=== PATIENT | female | born 1995 | race Caucasian/White ===

== ENCOUNTER 2023-03-09 09:12 | Emergency (ER) | payer MEDICAID, SELFPAY ==
[2023-03-09 09:12] VITALS: BP 124/91; PULSE 103; RESP 16; TEMP 36.4; O2SAT 99
--- NOTE | 2023-03-09 09:36 | CT_ITS ---
STUDY: CT ABDOMEN AND PELVIS WITHOUT CONTRAST REASON FOR EXAM: Female, 27 years old. pain, LLQ RADIATION DOSAGE (If Supplied By Facility): CTDIvol = ( 6.04 ) mGy, DLP = ( 246.11 ) mGycm TECHNIQUE: Transaxial images were obtained from the dome of the diaphragm to the symphysis pubis without oral contrast, and without intravenous contrast. Sagittal and coronal images were reconstructed. Individualized dose optimization techniques were used for this CT. COMPARISON: None. FINDINGS: The visualized lung bases are unremarkable. The visualized portions of the heart are within normal limits. Liver is unremarkable, there is incidental note made of a large left lobe which extends over the anterior spleen. Normal gallbladder and extrahepatic biliary system. Normal spleen. Normal pancreas. Normal bilateral adrenal glands. No obstructive uropathy or suspicious solid renal lesion, there are bilateral nonobstructing renal stones, largest within the lower pole of the left kidney measuring 8.5 mm. Normal visualized stomach. Normal small intestine. Retained stool noted throughout the colon There are surgical clips in the region of the appendix consistent with a prior appendectomy. Normal abdominal aorta. Normal inferior vena cava. Normal retroperitoneum. Normal urinary bladder. There is a complex 4.91 x 5.06 cm left adnexal region cyst with hyperdensity internally suggesting there is some hemorrhage involved. A dedicated pelvic ultrasound may be of benefit for further evaluation. There is no demonstrated free fluid. Normal abdominal wall. Normal osseous structures. CT/Abdomen/Pelvis without Cont IMPRESSION: 4.91 x 5.06 complex left adnexal region cyst with hyperdensity suggesting there may be some hemorrhage involved. Dedicated pelvic ultrasound recommended for further evaluation Bilateral nonobstructing nephrolithiasis Retained stool throughout the colon No free intraperitoneal fluid, air, or suspicious adenopathy Electronically Signed: Chava Clark MD at 11:17 EDT ,
--- NOTE | 2023-03-09 09:37 | EDS_ITS ---
HPI History of Present Illness Chief Complaint: Abd Pain Detail of Chief Complaint: Left lower quadrant abdominal pain Narrative Narrative: Patient presents with left lower quadrant abdominal pain that started this morning. Patient rates her pain a 10 out of 10. Patient has history of ovarian cysts and PCOS. Patient tells me that she had surgery to remove her fallopian tubes last month and also to deal with some endometriosis. Patient states that her [employer] is from out of town in [facility] she was here visiting her fianc?. Patient also had severe urinary tract infection a month ago for which she was on antibiotics. Patient denies dysuria. She denies urgency or frequency. Her last menstrual period was a month ago but she states they are very irregular. Patient has not had any fevers or chills or sweats. PFSH PFSH Home Medications hydrocodone-acetaminophen 5-325mg 5mg-325mg 1 tab PO Q4H PRN PRN Pain 2 days #10 TABLETS 03/09/23 [Rx Last Taken Unknown] oxycodone-acetaminophen 5 mg-325 mg tablet (Percocet) 1 tab PO Q6H PRN pain 2 days #10 tabs 03/09/23 [Rx Last Taken Unknown] sulfamethoxazole 800 mg-trimethoprim 160 mg tablet 1 tab PO BID #14 TABLETS 03/09/23 [Rx Last Taken Unknown] Allergy/AdvReac Type Severity Reaction Status Date / Time No Known Allergies Allergy Verified 03/09/23 09:15 Social History Smoking Status: Never smoker ROS ROS ED Review of Systems ROS Unobtainable: other Constitutional Constitutional ED: Reports lethargy; Denies chills, fever(s), sweats or weight loss Eyes Eyes: Denies blurry vision, change in vision or diplopia ENT ENT ED: Denies rhinorrhea or sore throat Cardiovascular Cardiovascular: Denies chest pain, orthopnea or racing heartbeat Respiratory/Chest Respiratory/Chest: Denies cough, dyspnea, dyspnea on exertion, orthopnea or sputum Gastrointestinal Gastrointestinal: Reports abdominal pain and nausea; Denies diarrhea or vomiting Genitourinary Genitourinary ED: Denies dysuria, hematuria or urinary frequency Musculoskeletal Musculoskeletal: Denies arthralgias, back pain, myalgias or neck pain Integumentary Denies abscess, Abrasions or rash Neurologic Neurologic: Denies headache(s) or weakness Psychiatric Psychiatric: Denies anxiety, depression or suicidal thoughts Endocrine Endocrinology: Denies polydipsia, polyphagia or polyuria Hematologic/Lymphatic Hematologic/Lymphatic: Denies easy bleeding, easy bruising or lymphadenopathy Allergic/Immunologic Allergic/Immunologic ED: Denies mouth swelling, tongue swelling or urticaria EXAM Physical Exam Const Vital Signs: 03/09/23 09:12 03/09/23 11:15 Temperature 97.6 F L 98.5 F Temperature Source Temporal Temporal Pulse Rate 103 H 80 Respiratory Rate 16 18 Blood Pressure 124/91 H 102/78 Blood Pressure Mean 102 86 Pulse Ox 99 96 Oxygen Delivery Method Room Air Room Air Positive well nourished and well developed General Appearance ED: well developed and NAD HEENT Reports TM's clear and moist mucous membranes normocephalic and atraumatic; Negative for trauma or tenderness Tympanic Membrane ED: Yes TM's clear Eyes PERRL and EOMs intact bilaterally General Eye ED: Negative for pale conjunctiva or scleral icterus Neck no lymphadenopathy, supple and no JVD General: Negative for tenderness Chest Wall inspection of chest normal and palpation of chest normal Chest: Negative for tenderness Resp normal respiratory effort and clear to auscultation bilaterally Effort and Inspection: Negative for respiratory distress or pain with movement Auscultation: Negative for rhonchi, wheezes or diminished lung sounds Cardio regular rate, regular rhythm, S1 normal heart sound, S2 normal heart sound and no murmurs Peripheral Pulses: pulses 2+ throughout GI normal to inspection, nondistended, normoactive bowel sounds, soft to palpation, non-distended and no masses GI Narrative: Tenderness to left lower quadrant with some guarding. There is no rebound, rigidity, or pedal signs. No mass palpated. Back/Spine no CVA tenderness and no thoracic nor lumbar tenderness Extremity normal to inspection General Extremety ED: Negative for edema General Extremity: Negative for edema Neuro oriented x3, CN's II-XII intact bilaterally, no sensory deficits noted and gait normal Sensorium / Orientation: awake, alert, oriented to person, oriented to place and oriented to time Motor Exam: strength 5/5 throughout and strength abnormal Psych mental status grossly normal Skin no rashes or lesions noted and no wounds MDM MDM MDM Narrative Medical decision making narrative: Patient presents with left lower abdominal pain that is similar to what she had when she had a hemorrhagic cyst on the right side month ago. Patient has had both of her fallopian tubes resected. She had an IV line established and she was medicated with morphine and Zofran she had good pain relief with that. CBC with differential obtained showed a white count of 7.2 with hemoglobin 12.8 hematocrit of 38.8 and platelet count of 195. Chemistries unremarkable. Lactate was normal at 0.8. hCG was negative. Urinalysis did show some nitrite its as well as 25-50 these and++ 2 bacteria. I did send off a urine culture. Patient was started on Rocephin IV. [address] a [address] scan of the abdomen pelvis that showed a complex left ovarian cyst that may have hemorrhage in it. I discussed results with patient. She states that this feels similar to what she had on the right side. She will follow-up with her [employer]. I will treat her for her UTI with Bactrim and also prescription for few [place] for pain. Patient advised to return if worsening pain, fever, vomiting, or condition worsening way Lab Data Labs: Laboratory Results - last 24 hr 03/09/23 03/09/23 03/09/23 09:39 09:39 09:39 WBC 7.2 RBC 4.20 Hgb 12.8 Hct 38.8 MCV 92.4 MCH 30.5 MCHC 33.0 RDW Std Deviation 43.0 RDW Coeff of Darrell 12.7 Plt Count 195 MPV 9.7 Immature Gran % (Auto) 0.300 Neut % (Auto) 65.4 Lymph % (Auto) 18.9 L [place] % (Auto) 12.5 H Eos % (Auto) 2.2 Baso % (Auto) 0.7 Absolute Neuts (auto) 4.7 Absolute Lymphs (auto) 1.36 Nucleated RBC % 0 Sodium 142 Potassium 3.7 Chloride 112 H Carbon Dioxide 23.0 Anion Gap 7 BUN 8 Creatinine 0.51 L Est GFR (MDRD) Af Amer 181 Est GFR (MDRD) Non-Af 150 BUN/Creatinine Ratio 15.6 Glucose 92 Lactic Acid 0.8 Calcium 8.7 Serum , Qual Urine Color Urine Clarity Urine pH Ur Specific [place] Urine Protein Urine Glucose (UA) Urine Ketones Urine Occult Blood Urine Nitrite Urine Bilirubin Urine Urobilinogen Ur Leukocyte Esterase Urine RBC Urine WBC Ur Squamous Epith Cells Urine Bacteria Urine Mucus 03/09/23 03/09/23 09:39 10:17 WBC RBC Hgb Hct MCV MCH MCHC RDW Std Deviation RDW Coeff of [place]rell Plt Count MPV Immature Gran % (Auto) Neut % (Auto) Lymph % (Auto) [place] % (Auto) Eos % (Auto) Baso % (Auto) Absolute Neuts (auto) Absolute Lymphs (auto) Nucleated RBC % Sodium Potassium Chloride Carbon Dioxide Anion Gap BUN Creatinine Est GFR (MDRD) Af Amer Est GFR (MDRD) Non-Af BUN/Creatinine Ratio Glucose Lactic Acid Calcium Serum , Qual NEGATIVE Urine Color Yellow Urine Clarity Cloudy Urine pH 6.5 Ur Specific [place] 1.015 Urine Protein 30 H Urine Glucose (UA) Normal Urine Ketones Negative Urine Occult Blood 250 H Urine Nitrite Positive H Urine Bilirubin Negative Urine Urobilinogen Normal Ur Leukocyte Esterase 500 H Urine RBC 0-5 SEEN Urine WBC 25-50 SEEN Ur Squamous Epith Cells 0 SEEN Urine Bacteria 2+ Urine Mucus 1+ Radiography Diagnostic Testing: Clinical Impression(s) from Imaging Studies Abdomen/Pelvis CT 03/09/23 09:36 IMPRESSION: 4.91 x 5.06 complex left adnexal region cyst with hyperdensity suggesting there may be some hemorrhage involved. Dedicated pelvic ultrasound recommended for further evaluation Bilateral nonobstructing nephrolithiasis Retained stool throughout the colon No free intraperitoneal fluid, air, or suspicious adenopathy Electronically Signed: Chava Clark MD at 11:17 EDT , Discharge Plan Triage Chief Complaint: Abd Pain ED Provider: Angelica Lopez Dx/Rx/DC Orders Clinical Impression: UTI (urinary tract infection), Ovarian cyst Instructions: ED Ovarian Cyst, ED Cystitis Female Adult Prescriptions: New hydrocodone-acetaminophen [hydrocodone-acetaminophen] 5-325 mg tablet 1 tab PO Q4H PRN PRN (Reason: Pain) 2 Days Qty: 10 0RF sulfamethoxazole-trimethoprim [sulfamethoxazole-trimethoprim] 800-160 mg tablet 1 tab PO BID Qty: 14 0RF oxycodone-acetaminophen [Percocet] 5-325 mg tablet 1 tab PO Q6H PRN (Reason: pain) 2 Days Qty: 10 0RF Primary Care Provider: Lucas Walsh Referrals: [facility] Doctor,Out of [Non-Staff] - Activity Restrictions/Additional Instructions: Follow-up with your [employer] and primary care physician within next 3 to 5 days. Disposition Disposition: Home, Self Care Discharge Date/Time: 03/09/23 12:42
[2023-03-09 10:00] LABS: Absolute Lymphocyte Count 1.36 X10^3/uL (0.83-4.51); Absolute Neutrophil Count 4.7 X10^3/uL (2.0-7.7); Basophil# 0.05 X10^3/uL; Basophil% 0.7 % (0-1); Eosinophil# 0.16 X10^3/uL; Eosinophils% 2.2 % (0-5); Hematocrit 38.8 % (37-47); Hemoglobin 12.8 g/dL (12.0-15.0); Lymphocyte # 1.36 X10^3/ul (0.83-4.51); Lymphocyte % 18.9 % (19-41); Mean Corpuscular Hgb 30.5 pg (27.0-32.0); Mean Corpuscular Volume 92.4 fL (81-99); Mean Platelet Vol. 9.7 fl (6.2-12.0); Monocyte% 12.5 % (0-10); NRBC Flagged by Analyzer 0 % (0-5); Neutrophil # 4.69 X10^3/uL (2.7-7.7); Neutrophil % 65.4 % (47-70); Platelet Count 195 K/mm3 (150-450); RBC Distribution Width CV 12.7 % (11.6-14.6); White Blood Count 7.2 K/mm3 (4.4-11.0)
[2023-03-09] MEDS: Morphine 4 MG/ML Syringe IV (10:09)
[2023-03-09] MEDS: Ondansetron 4 MG/2 ML Vial IV (10:09)
[2023-03-09] MEDS: 0.9% Normal Saline 1,000 ML 125 ML IV (10:10)
[2023-03-09 10:14] LABS: Internal QC Validated? YES +Cl - CLEAR BKGD; Pregnancy, Serum, hCG Quali. NEGATIVE Negative
[2023-03-09 10:16] LABS: Anion Gap 7 (5-15); BUN 8 mg/dL (7-18); BUN/Creat Ratio 15.6 RATIO (10-20); Calcium,Total 8.7 mg/dL (8.5-10.1); Chloride 112 mmol/L (98-107); Creatinine, Serum 0.51 mg/dL (0.55-1.02); EST Glomerular Filtration Rate 150 mL/min (>60); Est Glom Filt Rate - Afr Amer 181 mL/min (>60); Glucose 92 mg/dL (74-106); Potassium 3.7 mmol/L (3.5-5.1); Sodium Level 142 mmol/L (136-145)
[2023-03-09 10:20] LABS: Lactic Acid 0.8 mmol/L (0.4-1.9)
[2023-03-09 10:21] LABS: Squamous Epithelial Cells - UA 0 SEEN /hpf (5-10)
[2023-03-09 10:33] LABS: Color, Urine Yellow (Yellow); Glucose, Dipstick Normal (Normal); Ketone-Dipstick Negative (Negative); Leukocyte Esterase-Dipstick 500 /ul (Negative); Nitrite-Dipstick Positive (Negative); Occult Blood-Urine 250 /ul (Negative); Protein-Dipstick 30 mg/dl (Negative); Specific Gravity, Urine 1.015 (1.002-1.030); Urine Bilirubin Dipstick Negative (Negative); Urine Clarity Cloudy (Clear); Urine Urobilinogen Normal (Normal); Urine pH 6.5 (5.0 - 8.0)
[2023-03-09 10:50] LABS: Bacteria 2+ /hpf (None Seen); Mucous, Urine 1+ /hpf (<or=2+); Red Blood Cells-Urine 0-5 SEEN /hpf (0-5); White Blood Cells 25-50 SEEN /hpf (0-5)
[2023-03-09 11:15] VITALS: BP 102/78; PULSE 80; RESP 18; TEMP 36.9; O2SAT 96
== END 2023-03-09 12:42 | disposition home or self-care (01) ==
PROVIDERS: Emergency Provider Emergency Medicine; Visit Provider Emergency Medicine
DX: N39.0 Urinary tract infection, site not specified (principal); N83.209 Unspecified ovarian cyst, unspecified side
CPT/HCPCS: 74176; 80048; 81001; 83605; 84703; 85025; 87077; 87086; 87088; 87186; 96361; 96365; 96375; 99282; J7030; A4216; J2405; J3490

== ENCOUNTER 2023-07-20 00:41 | Emergency (ER) | payer MEDICAID, SELFPAY ==
[2023-07-20 00:43] VITALS: BP 102/69; PULSE 71; RESP 15; TEMP 36.5; O2SAT 97; BMI 18.8
--- NOTE | 2023-07-20 01:27 | US_ITS ---
INDICATION: LLQ pelvic pain EXAMINATION: US Transvaginal Non-OB TECHNIQUE: Transvaginal (for optimal evaluation of the adnexa) pelvic ultrasound was performed. Grayscale, spectral waveform, and color flow Doppler evaluation of the adnexa. COMPARISON: CT abdomen and pelvis from 03/09/2023 FINDINGS: Anteverted uterus measures 10.5 x 4.5 x 5.9 cm. Slightly heterogeneous uterine echotexture with no discrete mass. Endometrial complex normal thickness, 7 mm. Unremarkable cervix. Trace free pelvic fluid. No adnexal mass identified. Bilateral ovaries with normal color Doppler flow and spectral Doppler waveforms. Right ovary measures 3.1 x 2.3 x 2.4 cm and left ovary 3.5 x 1.9 x 2.6 cm. Bilateral ovarian follicles present. Dominant follicle on the left measures up to 1.8 cm diameter. US/Transvaginal Non- IMPRESSION: Trace physiologic fluid within pelvis with dominant 1.8 cm left ovarian follicle. No other acute findings. Electronically Signed: Nahum Aguilar MD at 3:06 EDT ,
[2023-07-20] MEDS: 0.9% Normal Saline (1000mL) 1,000 ML 999 ML IV (01:54)
[2023-07-20] MEDS: Morphine 4 MG/ML Syringe IV (01:55)
[2023-07-20] MEDS: Ondansetron 4 MG/2 ML Vial IV (01:55)
[2023-07-20 02:03] LABS: Color, Urine Yellow (Yellow); Glucose, Dipstick Normal (Normal); Ketone-Dipstick Negative (Negative); Leukocyte Esterase-Dipstick 100 /ul (Negative); Mucous, Urine 0 SEEN /hpf (<or=2+); Nitrite-Dipstick Positive (Negative); Occult Blood-Urine 250 /ul (Negative); Protein-Dipstick 100 mg/dl (Negative); Urine Bilirubin Dipstick Negative (Negative); Urine Clarity Cloudy (Clear); Urine Urobilinogen Normal (Normal); Urine pH 6.5 (5.0 - 8.0)
[2023-07-20 02:05] LABS: Internal QC Validated? YES +Cl - CLEAR BKGD; Pregnancy, Urine Negative Negative
[2023-07-20 02:05] LABS: Anion Gap 3 (5-15); BUN 16 mg/dL (7-18); BUN/Creat Ratio 26.7 RATIO (10-20); Calcium,Total 8.5 mg/dL (8.5-10.1); Chloride 109 mmol/L (98-107); EST Glomerular Filtration Rate 125 mL/min (>60); Est Glom Filt Rate - Afr Amer 151 mL/min (>60); Estimated Creatinine Clearance 94.58 ml/min; Glucose 97 mg/dL (74-106); Potassium 3.9 mmol/L (3.5-5.1); Sodium Level 141 mmol/L (136-145)
[2023-07-20 02:08] LABS: Absolute Lymphocyte Count 3.04 X10^3/uL (0.83-4.51); Absolute Neutrophil Count 6.2 X10^3/uL (2.0-7.7); Basophil# 0.08 X10^3/uL; Basophil% 0.8 % (0-1); Eosinophil# 0.27 X10^3/uL; Eosinophils% 2.6 % (0-5); Hematocrit 41.5 % (37-47); Hemoglobin 13.3 g/dL (12.0-15.0); Lymphocyte # 3.04 X10^3/ul (0.83-4.51); Lymphocyte % 29.5 % (19-41); Mean Corpuscular Hgb 30.4 pg (27.0-32.0); Mean Corpuscular Volume 94.7 fL (81-99); Mean Platelet Vol. 9.2 fl (6.2-12.0); Monocyte% 6.8 % (0-10); NRBC Flagged by Analyzer 0 % (0-5); Neutrophil # 6.17 X10^3/uL (2.7-7.7); Platelet Count 213 K/mm3 (150-450); RBC Distribution Width CV 12.3 % (11.6-14.6); RBC Distribution Width SD 42.8 fl (35.1-43.9); Red Blood Count 4.38 M/mm3 (4.2-5.4); White Blood Count 10.3 K/mm3 (4.4-11.0)
[2023-07-20 02:11] LABS: Bacteria 4+ /hpf (None Seen); Red Blood Cells-Urine 50-100 SEEN /hpf (0-5); Squamous Epithelial Cells - UA 0-5 SEEN /hpf (5-10); White Blood Cells 50-100 SEEN /hpf (0-5)
[2023-07-20] MEDS: Ceftriaxone 1 GM/50 ML BAG IV (03:16)
--- NOTE | 2023-07-20 03:21 | CT_ITS ---
INDICATION: left flank pain EXAMINATION: CT ABDOMEN AND PELVIS WITHOUT CONTRAST TECHNIQUE: Helically acquired images were obtained of the abdomen and pelvis without IV contrast. 2-D reconstructions reviewed. A radiation dose optimization technique was used for this scan. IV Contrast dosage and agent: None. Oral contrast: None. COMPARISON: Unenhanced CT abdomen and pelvis from 03/09/2023 FINDINGS: LOWER CHEST: No acute findings within the imaged lung bases. Heart size within normal limits. LIVER: 13 mm round low-attenuation lesion remains within lateral right lobe of liver. GALLBLADDER AND BILIARY TREE: No calcified gallstones identified. No pericholecystic edema demonstrated. No significant biliary ductal dilation. PANCREAS: No discrete mass or peripancreatic edema. SPLEEN: Normal size without discrete mass. ADRENAL GLANDS: Unremarkable. KIDNEYS AND URETERS: Normal renal size and position. There are few bilateral renal calyceal stones, largest on the left measuring 8 mm. No ureteral stones identified. Small calcified pelvic phleboliths on the right. No hydronephrosis. PERITONEUM: Trace free pelvic fluid. No free air detected. RETROPERITONEUM: No retroperitoneal mass or pathologic fluid collection. BOWEL: Status post appendectomy. No bowel obstruction or significant bowel thickening. No focal inflammatory change. LYMPH NODES: No enlarged mesenteric or retroperitoneal lymph nodes. VESSELS: No acute findings. No abdominal aortic aneurysm. URINARY BLADDER: Unremarkable as visualized. REPRODUCTIVE ORGANS: Dominant 1.9 cm left ovarian follicle. ABDOMINAL WALL: No acute findings or significant hernia defect. BONES: Intact with no suspicious osseous lesion. CT/Abdomen/Pelvis without Cont IMPRESSION: 1. Nonobstructing bilateral nephrolithiasis. 2. Stable small low-attenuation liver lesion. Favor benign hemangioma. Suggest nonemergent follow-up targeted liver ultrasound or three-phase CT to better evaluate. 3. Dominant left ovarian follicle with trace physiologic pelvic fluid. Electronically Signed: Nahum Aguilar MD at 4:31 EDT ,
--- NOTE | 2023-07-20 05:02 | EX.ED.DYSGE1 ---
HPI History of Present Illness Chief Complaint: Abd Pain Informant: patient and spouse/S.O. Narrative Narrative: Patient is a 28-year-old female with past medical history of endometriosis. She states that she also was recently diagnosed with a UTI but only had a few days of her antibiotic as she developed allergic reaction to it. She states she was at work this evening when she had increasing left lower quadrant abdominal pain with some radiation towards the left back. She denies any trauma or excessive activity. She states that she feels this could be a flareup of her endometriosis or worsening of the recent UTI based on the fact she cannot finish her antibiotics. As [id number] medications are not helping she presents for evaluation [facility] Medical History (Updated 07/23/23 @ 00:[address] Gene Patton, ) Bladder infection Endometriosis Kidney infection PCOS (polycystic ovarian syndrome) Home Medications ciprofloxacin HCl 500 mg tablet (Cipro) 500 mg PO BID 7 days #14 tabs 07/20/23 [Rx Last Taken Unknown] oxycodone-acetaminophen 5 mg-325 mg tablet (Percocet) 1 tab PO Q6H PRN pain 3 days #12 tabs 07/20/23 [Rx Last Taken Unknown] phenazopyridine 200 mg tablet (Pyridium) 200 mg PO TID 2 days #6 tabs 07/20/23 [Rx Last Taken Unknown] Allergy/AdvReac Type Severity Reaction Status Date / Time BACTRIM AdvReac Intermediate Itching Uncoded 07/20/23 00:53 Surgical History (Updated 07/20/23 @ 00:51 by Alexia Limon) Hx of appendectomy Social History Smoking Status: Never smoker ROS [facility] ED Constitutional Constitutional ED: Denies chills or fever(s) ENT ENT ED: Denies sore throat Cardiovascular Cardiovascular: Denies chest pain Respiratory/Chest Respiratory/Chest: Denies cough or dyspnea Gastrointestinal Gastrointestinal: Reports abdominal pain and nausea; Denies diarrhea or vomiting Genitourinary Genitourinary ED: Reports dysuria Musculoskeletal Musculoskeletal: Reports back pain Integumentary Denies rash Neurologic Neurologic: Denies headache(s) Hematologic/Lymphatic Hematologic/Lymphatic: Denies easy bleeding or easy bruising EXAM Physical Exam Const Vital Signs: 07/20/23 00:43 Temperature 97.7 F L Temperature Source Oral Pulse Rate 71 Respiratory Rate 15 Blood Pressure 102/69 Blood Pressure Mean 80 Pulse Ox 97 Oxygen Delivery Method Room Air Positive well nourished and well developed General Appearance ED: well developed; Negative for pallor HEENT Reports moist mucous membranes HEENT Narrative: No signs of infection noted in the posterior pharynx Eyes PERRL and EOMs intact bilaterally General Eye ED: Negative for scleral icterus Neck supple Resp normal respiratory effort and clear to auscultation bilaterally Cardio regular rate and regular rhythm Rate: other Other Details: Radial and carotid pulses are equal and symmetric GI non-distended GI Narrative: Abdomen is soft and nondistended with normal active bowel sounds. There is pain on palpation throughout the lower abdomen diffusely without voluntary guarding or rigidity. No pulsatile mass or fluid wave Auscultation: normoactive bowel sounds Palpation: soft Back/Spine Back/Spine Narrative: Positive left CVA pain noted Extremity normal to inspection Neuro oriented x3 and CN's II-XII intact bilaterally Sensorium / Orientation: alert Psych mental status grossly normal Skin no rashes or lesions noted General Skin Exam: Negative for jaundice or pallor MDM MDM MDM Narrative Medical decision making narrative: Patient presented to the ER with stable vitals. History and physical exam is concerning for UTI versus pyelonephritis versus kidney stone versus ovarian cyst versus endometriosis. Patient blood work was obtained and shows changes consistent with UTI but also hematuria. With concern she is developing a infected kidney stone a CT scan was obtained. This revealed no acute nephrolithiasis. At this time with the patient's flank pain and UTI she does qualify as pyelonephritis but as vitals are stable and lab work not displaying any clinically significant changes such as acute kidney injury or leukocytosis there is no need to keep her in the hospital and she be discharged home with symptomatic care. History & Record Review Discussion w/independent historian: Patient and Significant other Lab Data Attestation: I reviewed the patient's lab results. Labs: Laboratory Results - last 24 hr 07/20/23 07/20/23 01:42 01:50 WBC 10.3 RBC 4.38 Hgb 13.3 Hct 41.5 MCV 94.7 MCH 30.4 MCHC 32.0 RDW Std Deviation 42.8 RDW Coeff of Darrell 12.3 Plt Count 213 MPV 9.2 Immature Gran % (Auto) 0.300 Neut % (Auto) 60.0 Lymph % (Auto) 29.5 [place] % (Auto) 6.8 Eos % (Auto) 2.6 Baso % (Auto) 0.8 Absolute Neuts (auto) 6.2 Absolute Lymphs (auto) 3.04 Nucleated RBC % 0 Sodium 141 Potassium 3.9 Chloride 109 H Carbon Dioxide 29.0 Anion Gap 3 L BUN 16 Creatinine 0.60 Estim Creat Clear Calc 94.58 Est GFR (MDRD) Af Amer 151 Est GFR (MDRD) Non-Af 125 BUN/Creatinine Ratio 26.7 H Glucose 97 Calcium 8.5 Urine Color Yellow Urine Clarity Cloudy Urine pH 6.5 Ur Specific [place] 1.020 Urine Protein 100 H Urine Glucose (UA) Normal Urine Ketones Negative Urine Occult Blood 250 H Urine Nitrite Positive H Urine Bilirubin Negative Urine Urobilinogen Normal Ur Leukocyte Esterase 100 H Urine RBC 50-100 SEEN Urine WBC 50-100 SEEN Ur Squamous Epith Cells 0-5 SEEN Urine Bacteria 4+ Urine Mucus 0 SEEN Urine Test Negative Radiography Diagnostic Testing: Clinical Impression(s) from Imaging Studies Transvaginal US 07/20/23 01:27 IMPRESSION: Trace physiologic fluid within pelvis with dominant 1.8 cm left ovarian follicle. No other acute findings. Electronically Signed: Nahum Aguilar MD at 3:06 EDT , Abdomen/Pelvis CT 07/20/23 03:21 IMPRESSION: 1. Nonobstructing bilateral nephrolithiasis. 2. Stable small low-attenuation liver lesion. Favor benign hemangioma. Suggest nonemergent follow-up targeted liver ultrasound or three-phase CT to better evaluate. 3. Dominant left ovarian follicle with trace physiologic pelvic fluid. Electronically Signed: Nahum Aguialr MD at 4:31 EDT , Discharge Plan Triage Chief Complaint: Abd Pain ED Provider: Gene Patton Dx/Rx/DC Orders Clinical Impression: Pyelonephritis, Endometriosis Instructions: ED Pyelonephritis, Female (Adult) Prescriptions: New phenazopyridine [Pyridium] 200 mg tablet 200 mg PO TID 2 Days Qty: 6 0RF ciprofloxacin HCl [Cipro] 500 mg tablet 500 mg PO BID 7 Days Qty: 14 0RF oxycodone-acetaminophen [Percocet] 5-325 mg tablet 1 tab PO Q6H PRN (Reason: pain) 3 Days Qty: 12 0RF Stand Alone Forms: ED Work / School Excuse Primary Care Provider: Lucas Walsh Referrals: Lucas Walsh [Other] Activity Restrictions/Additional Instructions: Please take your medication as directed to help resolve your urinary tract/kidney infection. If you have worsening of symptoms despite taking antibiotics or any further concerns please return to the ER for repeat evaluation. Disposition Disposition: Home, Self Care Discharge Date/Time: 07/20/23 05:25
[2023-07-20] MEDS: Ketorolac 30 MG/ML Syringe IV (05:20)
== END 2023-07-20 05:25 | disposition home or self-care (01) ==
PROVIDERS: Emergency Provider Emergency Medicine; Visit Provider Emergency Medicine
DX: N12 Tubulo-interstitial nephritis, not specified as acute or chronic (principal); R31.9 Hematuria, unspecified; N80.9 Endometriosis, unspecified; R30.0 Dysuria
CPT/HCPCS: 74176; 76830; 80048; 81001; 81025; 85025; 87077; 87086; 87088; 87186; 93976; 96361; 96365; 96375; 99283; J7050; A4216; J2405

== ENCOUNTER 2023-09-11 10:11 | Emergency (ER) | payer MEDICAID, SELFPAY ==
[2023-09-11 10:11] VITALS: BP 122/99; PULSE 78; RESP 18; TEMP 36.5; O2SAT 99; BMI 17.8
--- NOTE | 2023-09-11 10:21 | US_ITS ---
STUDY: ULTRASOUND OF THE FEMALE PELVIS - COMPLETE REASON FOR EXAM: Female, 28 years old. llq pain, ovarian cyst LMP: September 09, 2023 TECHNIQUE: Transvaginal TECHNICAL QUALITY: Adequate. COMPARISON: Comparison is made with prior study July 20, 2023. FINDINGS: The uterus is anteverted and is in a midline position. The uterus measures 8.5 cm x 5.7 cm x 4.3 cm. Normal uterine cervix. The endometrium measures 3.6 mm in thickness, and is hyperechoic. There is no demonstrated endometrial mass. There is no demonstrated myometrial mass. I.U.D. - The patient does not have an I.U.D. The right ovary is visualized. The right ovary measures 3.2 cm x 2.6 x 2.4 cm. There is no right ovarian cyst or ovarian mass. There is no visualized right adnexal mass or complex lesion. There is normal arterial and normal venous vascularity. The left ovary is visualized. The left ovary measures 2.6 cm x 2.1 cm x 1.7 cm. There is no left ovarian cyst or ovarian mass. There is no visualized left adnexal mass or complex lesion. There is normal arterial and normal venous vascularity. There is no fluid in the cul-de-sac. US/Transvaginal Non- IMPRESSION: Normal female pelvis. Electronically Signed: Domingo Carrillo MD at 12:00 EST ,
--- NOTE | 2023-09-11 10:22 | ED.VIS.FEGU ---
HPI HPI - Female History of Present Illness Chief Complaint: Abd Pain Narrative Narrative: 28-year-old female past medical history of endometriosis presents with bilateral lower quadrant left greater than right pain that is consistent with her endometriosis. She states that she has an appointment with the [facility] physician/[facility] because she recently moved here and this is her third visit to the ED regarding her endometrial pain. This feels very similar. She was here approximately a month ago to 6 weeks ago with same type of pain where she had a work-up and a UTI. She states she has this appointment with the [facility] to see if she requires a hysterectomy because no other methods have worked for her endometriosis and PCOS. Additionally, she states that around 430 this morning, 6 hours ago, her fianc?'s phone rang and she felt a pop in her left lower quadrant and now has pain. She started her menses on Saturday, 2 days ago, but has history of salpingectomy bilaterally. PFSH PFSH Medical History Bladder infection Endometriosis Kidney infection PCOS (polycystic ovarian syndrome) Home Medications ciprofloxacin HCl 500 mg tablet (Cipro) 500 mg PO BID 7 days #14 tabs 07/20/23 [Rx Last Taken Unknown] oxycodone-acetaminophen 5 mg-325 mg tablet (Percocet) 1 tab PO Q6H PRN pain 3 days #12 tabs 07/20/23 [Rx Last Taken Unknown] phenazopyridine 200 mg tablet (Pyridium) 200 mg PO TID 2 days #6 tabs 07/20/23 [Rx Last Taken Unknown] Allergy/AdvReac Type Severity Reaction Status Date / Time BACTRIM AdvReac Intermediate Itching Uncoded 07/20/23 00:53 Surgical History Hx of appendectomy Social History Smoking Status: Never smoker ROS ROS ED ROS Narrative Constitutional: No fever, no chills. HEENT: No sore throat. No neck pain. No loss of vision. No rhinorrhea. Cardiovascular: No chest pain. No palpitations. No pedal edema. Respiratory: No cough, no shortness of breath. Abdominal: No abdominal pain. No nausea. No vomiting. Genitourinary: No dysuria. No hematuria. On menses currently. Bilateral lower quadrant pain left greater than right. Musculoskeletal: No myalgias. No arthralgias. Neurologic: No headaches. No dizziness. No lightheadedness. Skin: No rash. No change in color. Psychiatric: No depression. No anxiety. EXAM Physical Exam Narrative Exam Narrative: Afebrile. Vital signs noted. HEENT: Normocephalic. Atraumatic. PERRL, EOMI. Neck soft and supple. No point tenderness or step off. Cardiovascular: Regular rate and rhythm. No murmurs, rubs, or gallops appreciated. Respiratory: No tachypnea. Lungs clear to auscultation bilaterally. Gastrointestinal: Abdomen soft, mild tenderness left lower quadrant. With normoactive bowel sounds. No rebound or guarding. Neurological: Awake. Alert. Nonfocal, nonlateralizing. Skin: No rash. Normal color. No pallor. Musculoskeletal: No pedal edema. Full range of motion extremities. Const Vital Signs: 09/11/23 10:11 Temperature 97.7 F L Temperature Source Temporal Pulse Rate 78 Respiratory Rate 18 Blood Pressure 122/99 H Blood Pressure Mean 106 Pulse Ox 99 Oxygen Delivery Method Room Air MDM MDM MDM Narrative Medical decision making narrative: In the differential diagnosis is ovarian cyst rupture versus endometrial pain versus diverticulitis. I have low suspicion for diverticulitis as her history and physical does not support this and is more consistent with her endometrial pain. She was administered morphine and ondansetron as she states that her ibuprofen is no longer controlling her pain. I reviewed her prior records and she was here in June, just over a month ago to 6 weeks ago where she had a CT of the abdomen and pelvis and transvaginal ultrasound which did show a left-sided ovarian cyst at 1.8 cm. Lower in the differential is ovarian torsion, however ultrasound will be obtained to help rule this out. I will obtain basic laboratory work and although she has had salpingectomy, I will obtain a serum test to ensure she does not have an ectopic . I reviewed her laboratory results and she has normal white count of 7.4, hemoglobin normal at 14.7, platelet count normal at 255, serum is negative. No feel an electrolyte panel is indicated. I reviewed the radiology report of her ultrasound of the pelvis and she has normal flow to the bilateral ovaries and no evidence of ovarian cysts on either ovary. No adnexal mass. I do feel she is having more of an endometrial exacerbation. I do not feel CT imaging is indicated currently. I will review her use a and administer antibiotics as appropriate, but I feel she can be be discharged regardless with follow-up to her [facility]. Able to review her UA and there are no signs of infection with 0-5 WBCs. I do not feel antibiotics are indicated. She states her appointment is next week on Saturday approximately 5 days from now. She will take [id number] analgesics as I do not feel further narcotics are indicated. Disposition is discharged home in stable condition. History & Record Review Discussion w/independent historian: Patient Additional record(s) reviewed:: Prior ED visit and Prior labs Lab Data Attestation: I reviewed the patient's lab results. Labs: Laboratory Results - last 24 hr 09/11/23 09/11/23 10:45 11:50 WBC 7.4 RBC 4.85 Hgb 14.7 Hct 44.9 MCV 92.6 MCH 30.3 MCHC 32.7 RDW Std Deviation 43.4 RDW Coeff of Darrell 12.7 Plt Count 255 MPV 9.1 Immature Gran % (Auto) 0.100 Neut % (Auto) 60.1 Lymph % (Auto) 29.5 [place] % (Auto) 6.9 Eos % (Auto) 2.9 Baso % (Auto) 0.5 Absolute Neuts (auto) 4.4 Absolute Lymphs (auto) 2.17 Nucleated RBC % 0 Serum , Qual NEGATIVE Urine Color Yellow Urine Clarity Sl. Cloudy Urine pH 7.0 Ur Specific [place] 1.010 Urine Protein 30 H Urine Glucose (UA) Normal Urine Ketones Negative Urine Occult Blood 250 H Urine Nitrite Negative Urine Bilirubin Negative Urine Urobilinogen Normal Ur Leukocyte Esterase 25 H Urine RBC 0-5 SEEN Urine WBC 0-5 SEEN Ur Squamous Epith Cells 0 SEEN Urine Bacteria RARE Urine Mucus 0 SEEN Radiography Diagnostic Testing: Clinical Impression(s) from Imaging Studies Transvaginal US 09/11/23 10:21 IMPRESSION: Normal female pelvis. Electronically Signed: Domingo Carrillo MD at 12:00 EST , Discharge Plan Triage Chief Complaint: Abd Pain ED Provider: Yadiel Ruby Dx/Rx/DC Orders Clinical Impression: Pelvic pain, Endometriosis Instructions: ED Endometriosis, ED Pelvic Pain, Unknown Cause Prescriptions: No Action phenazopyridine [Pyridium] 200 mg tablet 200 mg PO TID 2 Days Qty: 6 0RF ciprofloxacin HCl [Cipro] 500 mg tablet 500 mg PO BID 7 Days Qty: 14 0RF oxycodone-acetaminophen [Percocet] 5-325 mg tablet 1 tab PO Q6H PRN (Reason: pain) 3 Days Qty: 12 0RF Primary Care Provider: Care Physician,No Primary Referrals: NOT,DEFINED [Non-Staff] - Activity Restrictions/Additional Instructions: Follow-up with your [facility] on Saturday as scheduled. Continue your ibuprofen as needed for pain. Disposition Disposition: Home, Self Care
[2023-09-11] MEDS: 0.9% Normal Saline (1000mL) 1,000 ML 1000 ML IV (10:41)
[2023-09-11] MEDS: Ondansetron 4 MG/2 ML Vial IV (10:41)
[2023-09-11] MEDS: Morphine 4 MG/ML Syringe IV (10:41)
[2023-09-11 11:08] LABS: Absolute Lymphocyte Count 2.17 X10^3/uL (0.83-4.51); Absolute Neutrophil Count 4.4 X10^3/uL (2.0-7.7); Basophil# 0.04 X10^3/uL; Basophil% 0.5 % (0-1); Eosinophil# 0.21 X10^3/uL; Eosinophils% 2.9 % (0-5); Hematocrit 44.9 % (37-47); Hemoglobin 14.7 g/dL (12.0-15.0); Lymphocyte # 2.17 X10^3/ul (0.83-4.51); Lymphocyte % 29.5 % (19-41); Mean Corp Hgb Conc 32.7 g/dL (32-36); Mean Corpuscular Hgb 30.3 pg (27.0-32.0); Mean Corpuscular Volume 92.6 fL (81-99); Mean Platelet Vol. 9.1 fl (6.2-12.0); Monocyte# 0.51 X10^3/uL; Monocyte% 6.9 % (0-10); NRBC Flagged by Analyzer 0 % (0-5); Neutrophil # 4.42 X10^3/uL (2.7-7.7); Neutrophil % 60.1 % (47-70); Platelet Count 255 K/mm3 (150-450); RBC Distribution Width CV 12.7 % (11.6-14.6); RBC Distribution Width SD 43.4 fl (35.1-43.9); Red Blood Count 4.85 M/mm3 (4.2-5.4); White Blood Count 7.4 K/mm3 (4.4-11.0)
[2023-09-11 11:21] LABS: Internal QC Validated? YES +Cl - CLEAR BKGD; Pregnancy, Serum, hCG Quali. NEGATIVE Negative
[2023-09-11 12:00] LABS: Mucous, Urine 0 SEEN /hpf (<or=2+); Squamous Epithelial Cells - UA 0 SEEN /hpf (5-10)
[2023-09-11 12:08] LABS: Color, Urine Yellow (Yellow); Glucose, Dipstick Normal (Normal); Ketone-Dipstick Negative (Negative); Leukocyte Esterase-Dipstick 25 /ul (Negative); Nitrite-Dipstick Negative (Negative); Occult Blood-Urine 250 /ul (Negative); Protein-Dipstick 30 mg/dl (Negative); Urine Bilirubin Dipstick Negative (Negative); Urine Clarity Sl. Cloudy (Clear); Urine Urobilinogen Normal (Normal)
[2023-09-11 12:17] LABS: Red Blood Cells-Urine 0-5 SEEN /hpf (0-5); White Blood Cells 0-5 SEEN /hpf (0-5)
[2023-09-11 12:18] LABS: Bacteria RARE /hpf (None Seen)
== END 2023-09-11 12:47 | disposition home or self-care (01) ==
PROVIDERS: Emergency Provider Emergency Medicine; Visit Provider Emergency Medicine
DX: N80.9 Endometriosis, unspecified (principal); E28.2 Polycystic ovarian syndrome
CPT/HCPCS: 76830; 81001; 84703; 85025; 96361; 96374; 96375; 99282; J7030; J2405

== ENCOUNTER 2023-11-09 08:25 | Emergency (ER) | payer MEDICAID, SELFPAY ==
[2023-11-09 08:25] VITALS: BP 116/78; PULSE 91; RESP 16; TEMP 36.4; O2SAT 98; BMI 17.8
--- NOTE | 2023-11-09 08:40 | CT_ITS ---
INDICATION: Kidney Stone EXAMINATION: CT ABDOMEN AND PELVIS WITHOUT CONTRAST - CT Abdomen And Pelvis W/O Contrast Injection TECHNIQUE: Helically acquired images were obtained of the abdomen and pelvis without oral or IV contrast. A radiation dose optimization technique was used for this scan. IV Contrast dosage and agent: None. Oral contrast: None. RADIATION DOSAGE (If Supplied By Facility): CTDIvol = ( 6.04 ) mGy, DLP = ( 262.73 ) mGycm COMPARISON: Prior studies dated: 07/20/2023 and 03/09/2023 FINDINGS: LOWER CHEST: Lung bases are clear. No cardiomegaly or pericardial effusion. LIVER: Homogeneous. Faintly visualized stable 1.3 cm low-density lesion in the right lobe of the liver. GALLBLADDER AND BILIARY TREE: No calcified gallstones. No gallbladder distension or wall edema. No intra- or extrahepatic biliary ductal dilation. PANCREAS: No focal cystic or solid mass. SPLEEN: Normal size without focal cystic or solid mass. ADRENAL GLANDS: No nodules. KIDNEYS AND URETERS: Bilateral nonobstructing renal stones are again seen, the largest is in the left kidney measuring about 8 mm. No evidence of ureteral stones. No hydronephrosis. PERITONEUM: No ascites or free air. No other fluid collection. BOWEL: Surgical clips in the right lower quadrant from previous appendectomy. No stomach or bowel distension. No focal inflammatory change. LYMPH NODES: No enlarged mesenteric or retroperitoneal lymph nodes. VESSELS: Aorta is non-dilated. URINARY BLADDER: Unremarkable. REPRODUCTIVE ORGANS: 3 cm right adnexal cyst. ABDOMINAL WALL: No discrete abdominal or pelvic wall hernia. BONES: No lytic or blastic abnormality. CT/Abdomen/Pelvis without Cont IMPRESSION: 1. Bilateral nonobstructing renal stones larger on the right side essentially unchanged. No evidence of hydronephrosis. 2. Stable liver lesion likely due to hemangioma. 3. 3 cm right adnexal cyst. Electronically Signed: Kamran Taylor MD at 10:07 [facility], [place] ,
[2023-11-09 08:57] LABS: Bacteria 0 SEEN /hpf (None Seen)
[2023-11-09 08:59] LABS: Color, Urine Yellow (Yellow); Glucose, Dipstick Normal (Normal); Ketone-Dipstick 15 mg/dl (Negative); Leukocyte Esterase-Dipstick 100 /ul (Negative); Nitrite-Dipstick Negative (Negative); Occult Blood-Urine 250 /ul (Negative); Protein-Dipstick 30 mg/dl (Negative); Urine Bilirubin Dipstick Negative (Negative); Urine Clarity Sl. Cloudy (Clear); Urine Urobilinogen Normal (Normal)
--- NOTE | 2023-11-09 09:03 | EDS_ITS ---
HPI History of Present Illness Chief Complaint: Flank Pain Informant: patient Narrative Narrative: 28-year-old female presenting to the emergency room with left flank pain. Patient states that yesterday she was driving her children to school when she got pain in the lower abdomen. She is currently on her period and states that they are usually pretty painful for her so she did not think much of it but then she began to have pain in the left flank and a pulsating sensation. It made her nauseous and feel like passing out. The patient reports that it has been waxing and waning since. She notes normal bowel movement this morning. She was unable to come to the emergency room last night due to childcare and her the patientSignificant other working. Notes a history of ovarian cyst endometriosis and UTI. No reported fevers. She states that at 1 point in her life she remembers passing of kidney stone but it never caused any pain. PFSH PFSH Medical History Bladder infection Endometriosis Kidney infection PCOS (polycystic ovarian syndrome) Home Medications ciprofloxacin HCl 500 mg tablet (Cipro) 500 mg PO BID 7 days #14 tabs 07/20/23 [Rx Last Taken Unknown] oxycodone-acetaminophen 5 mg-325 mg tablet (Percocet) 1 tab PO Q6H PRN pain 3 days #12 tabs 07/20/23 [Rx Last Taken Unknown] phenazopyridine 200 mg tablet (Pyridium) 200 mg PO TID 2 days #6 tabs 07/20/23 [Rx Last Taken Unknown] Allergy/AdvReac Type Severity Reaction Status Date / Time BACTRIM AdvReac Intermediate Itching Uncoded 07/20/23 00:53 Surgical History Hx of appendectomy Social History Smoking Status: Never smoker ROS ROS ED Constitutional Constitutional ED: Denies chills or weight loss Eyes Eyes: Denies change in vision or diplopia ENT ENT ED: Denies ear pain, rhinorrhea or sore throat Cardiovascular Cardiovascular: Denies chest pain, orthopnea, palpitations or racing heartbeat Respiratory/Chest Respiratory/Chest: Denies cough, dyspnea or orthopnea Gastrointestinal Gastrointestinal: Reports abdominal pain and nausea; Denies diarrhea or vomiting Genitourinary Genitourinary ED: Denies dysuria, hematuria or urinary frequency Musculoskeletal Musculoskeletal: Reports back pain; Denies arthralgias or myalgias Integumentary Denies abscess or rash Neurologic Neurologic: Denies headache(s) or weakness Psychiatric Psychiatric: Denies anxiety, depression, suicidal ideation or suicidal thoughts Endocrine Endocrinology: Denies polydipsia, polyphagia or polyuria Allergic/Immunologic Allergic/Immunologic ED: Denies mouth swelling, tongue swelling or urticaria EXAM Physical Exam Const Vital Signs: 11/09/23 08:25 11/09/23 11:11 Temperature 97.6 F L Temperature Source Temporal Pulse Rate 91 72 Respiratory Rate 16 15 Blood Pressure 116/78 124/69 H Blood Pressure Mean 90 87 Pulse Ox 98 98 Oxygen Delivery Method Room Air Room Air Positive well nourished and well developed General Appearance ED: well developed HEENT Reports normocephalic, head/scalp atraumatic and moist mucous membranes Eyes PERRL and EOMs intact bilaterally Neck no lymphadenopathy, supple and no JVD Resp normal respiratory effort and clear to auscultation bilaterally Cardio regular rate, regular rhythm and no murmurs GI Inspection: Negative for abdominal distention Auscultation: normoactive bowel sounds Palpation: soft and tender other (Diffusely tender); Negative for guarding or rebound tenderness present Back/Spine normal ROM General Back: CVA tenderness left Extremity normal to inspection General Extremety ED: Negative for edema General Extremity: Negative for edema Neuro oriented x3 and CN's II-XII intact bilaterally Sensorium / Orientation: alert Motor Exam: strength 5/5 throughout Psych mental status grossly normal Mood & Affect: Negative for depressed or tearful Skin no rashes or lesions noted and no wounds MDM MDM MDM Narrative Medical decision making narrative: IV established patient received morphine Zofran and fluids. White count 5.6 hemoglobin 15.1. BMP with a glucose of 83 creatinine 0.64. Urinalysis 25-50 red cells 10-25 white cells 0 bacteria 1+ mucus negative nitrates. Patient is on her period and this may explain the above findings. She does not have dysuria or frequency. CT of the abdomen pelvis demonstrates bilateral renal stones but no obvious hydro-. There is a right adnexal cyst (patient has a PCOS history) no stone along the kidney that was seen. Patient continues to note pain now describing it extending from the suprapubic region and a white band to into the left flank. She states that this is now the fourth of the fifth time that she has had symptoms that have not been able to be explained. We can send the urine for culture. I would recommend establishing primary care. Monitor for new symptoms such as rash or change in pattern of pain or return. Lab Data Attestation: I reviewed the patient's lab results. Labs: Laboratory Results - last 24 hr 11/09/23 11/09/23 08:46 09:05 WBC 5.6 RBC 5.05 Hgb 15.1 H Hct 46.8 MCV 92.7 MCH 29.9 MCHC 32.3 RDW Std Deviation 43.0 RDW Coeff of Darrell 12.6 Plt Count 236 MPV 9.5 Immature Gran % (Auto) 0.400 Neut % (Auto) 52.4 Lymph % (Auto) 36.4 [place] % (Auto) 6.3 Eos % (Auto) 3.4 Baso % (Auto) 1.1 H Absolute Neuts (auto) 2.9 Absolute Lymphs (auto) 2.03 Nucleated RBC % 0 Sodium 142 Potassium 3.8 Chloride 111 H Carbon Dioxide 25.0 Anion Gap 6 BUN 13 Creatinine 0.64 Estim Creat Clear Calc 84.12 Est GFR (MDRD) Af Amer 139 Est GFR (MDRD) Non-Af 115 BUN/Creatinine Ratio 20.2 H Glucose 83 Calcium 9.6 Serum , Qual NEGATIVE Urine Color Yellow Urine Clarity Sl. Cloudy Urine pH 6.0 Ur Specific [place] 1.020 Urine Protein 30 H Urine Glucose (UA) Normal Urine Ketones 15 H Urine Occult Blood 250 H Urine Nitrite Negative Urine Bilirubin Negative Urine Urobilinogen Normal Ur Leukocyte Esterase 100 H Urine RBC 25-50 SEEN Urine WBC 10-25 SEEN Ur Squamous Epith Cells 0-5 SEEN Urine Bacteria 0 SEEN Urine Mucus 1+ Radiography Diagnostic Testing: Clinical Impression(s) from Imaging Studies Abdomen/Pelvis CT 11/09/23 08:40 IMPRESSION: 1. Bilateral nonobstructing renal stones larger on the right side essentially unchanged. No evidence of hydronephrosis. 2. Stable liver lesion likely due to hemangioma. 3. 3 cm right adnexal cyst. Electronically Signed: Kamran Taylor MD at 10:07 EST , Discharge Plan Triage Chief Complaint: Flank Pain ED Provider: Avel Thurman Dx/Rx/DC Orders Prescriptions: No Action phenazopyridine [Pyridium] 200 mg tablet 200 mg PO TID 2 Days Qty: 6 0RF ciprofloxacin HCl [Cipro] 500 mg tablet 500 mg PO BID 7 Days Qty: 14 0RF oxycodone-acetaminophen [Percocet] 5-325 mg tablet 1 tab PO Q6H PRN (Reason: pain) 3 Days Qty: 12 0RF Primary Care Provider: Care Physician,No Primary Referrals: Care Physician,No Primary [Primary Care Provider] -
[2023-11-09] MEDS: Ondansetron 4 MG/2 ML Vial IV (09:09)
[2023-11-09] MEDS: 0.9% Normal Saline (1000mL) 1,000 ML 250 ML IV (09:09)
[2023-11-09] MEDS: Morphine 4 MG/ML Syringe IV (09:09)
[2023-11-09 09:12] LABS: Mucous, Urine 1+ /hpf (<or=2+); Red Blood Cells-Urine 25-50 SEEN /hpf (0-5); Squamous Epithelial Cells - UA 0-5 SEEN /hpf (5-10); White Blood Cells 10-25 SEEN /hpf (0-5)
[2023-11-09 09:22] LABS: Absolute Lymphocyte Count 2.03 X10^3/uL (0.83-4.51); Absolute Neutrophil Count 2.9 X10^3/uL (2.0-7.7); Basophil# 0.06 X10^3/uL; Basophil% 1.1 % (0-1); Eosinophil# 0.19 X10^3/uL; Eosinophils% 3.4 % (0-5); Hematocrit 46.8 % (37-47); Hemoglobin 15.1 g/dL (12.0-15.0); Lymphocyte # 2.03 X10^3/ul (0.83-4.51); Lymphocyte % 36.4 % (19-41); Mean Corp Hgb Conc 32.3 g/dL (32-36); Mean Corpuscular Hgb 29.9 pg (27.0-32.0); Mean Corpuscular Volume 92.7 fL (81-99); Mean Platelet Vol. 9.5 fl (6.2-12.0); Monocyte# 0.35 X10^3/uL; Monocyte% 6.3 % (0-10); NRBC Flagged by Analyzer 0 % (0-5); Neutrophil # 2.93 X10^3/uL (2.7-7.7); Neutrophil % 52.4 % (47-70); Platelet Count 236 K/mm3 (150-450); RBC Distribution Width CV 12.6 % (11.6-14.6); Red Blood Count 5.05 M/mm3 (4.2-5.4); White Blood Count 5.6 K/mm3 (4.4-11.0)
[2023-11-09 09:23] LABS: Internal QC Validated? YES +Cl - CLEAR BKGD; Pregnancy, Serum, hCG Quali. NEGATIVE Negative; Record Kit Lot#, Serum Preg. HCG0000667200
[2023-11-09 09:31] LABS: Anion Gap 6 (5-15); BUN 13 mg/dL (7-18); BUN/Creat Ratio 20.2 RATIO (10-20); Calcium,Total 9.6 mg/dL (8.5-10.1); Chloride 111 mmol/L (98-107); Creatinine, Serum 0.64 mg/dL (0.55-1.02); EST Glomerular Filtration Rate 115 mL/min (>60); Est Glom Filt Rate - Afr Amer 139 mL/min (>60); Estimated Creatinine Clearance 84.12 ml/min; Glucose 83 mg/dL (74-106); Potassium 3.8 mmol/L (3.5-5.1); Sodium Level 142 mmol/L (136-145)
--- OUTSIDE RECORDS SUMMARY | 2023-11-09 09:44 | XMS RPT_ITS | CCD ---
Author Name Unknown Address [address] [place] [address] Organization [facility] Care Team Providers Care Medical Sales Name Role Phone Sharon Azeem Sim Unavailable Unavailable Unavailable Unavailable Unavailable AZEEM HERRERA Primary Care Unavailable SHARON, AZEEM Primary Care Unavailable MELLO CRABTREE MD Attending Unavailable MELLO CRABTREE MD Attending Unavailable AZEEM HERRERA Primary Care Unavailable SHARON, AZEEM Primary Care Unavailable SHARON, AZEEM Primary Care Unavailable SHARON, AZEEM Primary Care Unavailable SERENA JACOB MD Attending Unavailable AZEEM HERRERA Primary Care Unavailable BABAK GARCIA MD Attending Unavailable AZEEM HERRERA Primary Care Unavailable RANDY WHATLEY DO Attending Unavailable SHARON, AZEEM Primary Care Unavailable SHARON, AZEEM Primary Care Unavailable MELLO CRABTREE MD Attending Unavailable AZEEM HERRERA Primary Care Unavailable MELLO CRABTREE MD Attending Unavailable AZEEM HERRERA Primary Care Unavailable AZEEM HERRERA Primary Care Unavailable MELLO CRABTREE MD Attending Unavailable AZEEM HERRERA Primary Care Unavailable MELLO CRABTREE MD Attending Unavailable AZEEM HERRERA Primary Care Unavailable MELLO CRABTREE MD Attending Unavailable AZEEM HERRERA Primary Care Unavailable SHARON ORTIZ~[id number], SHARON GANN Primary Care Unavailable MELLO CRABTREE MD Attending Unavailable SERENA JACOB MD Attending Unavailable SHARON ORTIZ~[id number], SHARON GANN Primary Care Unavailable Unavailable Primary Care Provider UnavailMERLINE Badillo Referring Unavailable MERLINE ALMANZA Referring Unavailable MERLINE ALMANZA Attending Unavailable Allergies Allergy Classification Reported Allergen(s) Allergy Type Date of Onset Reaction(s) Facility (3 sources) Dairy Allergy to substance (finding) [facility] Work Phone: (5 sources) Sulfamethoxazole / Trimethoprim; Translations: [SULFAMETHOXAZOLE-TR IMETHOPRIM] Drug Allergy 3 Itching [facility] Medications Current Medications Medication Drug Class(es) Dates Sig (Normalized) Sig (Original) nitrofurantoin, macrocrystals 25 mg / nitrofurantoin, monohydrate 75 mg oral capsule (1 source) Nitrofuran Antibacterial Start: 09-23-2023 End: 09-30-2023 take 1 capsule by mouth twice daily nitrofurantoin monohydrate and macrocrystal (MACROBID) 100 mg capsule Indications: Urinary tract infection without hematuria, site unspecified Take 1 capsule by mouth two times a day for 7 days. 14 capsule 0 09/23/2023 09/30/2023 Active Completed/Discontinued Medications Medication Drug Class(es) Dates Sig (Normalized) Sig (Original) Ascorbic Acid (1 source) Vitamin C End: 09-16-2023 ASCORBIC ACID (VITAMIN C ORAL) Take by mouth. 0 09/16/2023 Discontinued (Course of therapy completed) Problems Problem Classification Problem Date Documented Da te Episodic/Chronic Abdominal pain (12 sources) Right upper quadrant pain; Translations: [Abdominal pain, right upper quadrant] Onset: 09-16-2023 09-16-2023 Episodic Biliary tract disease (3 sources) Gallstone; Translations: [Calculus of gallbladder without mention of cholecystitis, without mention of obstruction] Episodic Blindness and vision defects (12 sources) Bilateral myopia of eyes; Translations: [Myopia] Episodic Calculus of urinary tract (3 sources) Kidney stone; Translations: [Calculus of kidney] Episodic Chronic obstructive pulmonary disease and bronchiectasis (3 sources) Bronchitis; Translations: [Bronchitis, not specified as acute or chronic] Episodic Contraceptive and procreative management (3 sources) Intrauterine contraceptive device in situ; Translations: [Presence of intrauterine contraceptive device] Episodic Genitourinary symptoms and ill-defined conditions (6 sources) Dysuria; Translations: [Dysuria] Episodic Immunizations and screening for infectious disease (3 sources) Patient encounter status; Translations: [Encounter for screening for human papillomavirus (HPV)] Onset: 09-16-2023 09-16-2023 Episodic Menstrual disorders (2 sources) Irregular periods; Translations: [Irregular menstruation, unspecified] Onset: 09-20-2023 09-16-2023 Chronic Other gastrointestinal disorders (3 sources) H/O: gallstones; Translations: [Personal history of other diseases of digestive system] Episodic Other gastrointestinal disorders (3 sources) H/O: appendicitis; Translations: [Personal history of other diseases of digestive system] Episodic Other nutritional; endocrine; and metabolic disorders (1 source) Underweight; Translations: [Underweight] 09-16-2023 Episodic Other nutritional; endocrine; and metabolic disorders (1 source) Unintentional weight loss; Translations: [Abnormal weight loss] 09-16-2023 Episodic Other nutritional; endocrine; and metabolic disorders (1 source) Abnormal weight loss; Translations: [Unintended weight loss] Onset: 09-20-2023 Episodic Other nutritional; endocrine; and metabolic disorders (1 source) Underweight; Translations: [Underweight] Onset: 09-16-2023 Episodic Other screening for suspected conditions (not mental disorders or infectious disease) (1 source) Encounter for screening for malignant neoplasm of cervix; Translations: [Encounter for screening for malignant neoplasm of cervix] Onset: 09-16-2023 Episodic Other skin disorders (1 source) Loss of hair; Translations: [Nonscarring hair loss, unspecified] 09-16-2023 Episodic Other skin disorders (1 source) Nonscarring hair loss, unspecified; Translations: [Hair loss] Onset: 09-16-2023 Episodic Residual codes; unclassified (3 sources) History of strabismus surgery; Translations: [Other states following surgery of eye and adnexa] Episodic Urinary tract infections (4 sources) Urinary tract infectious disease; Translations: [Urinary tract infection, site not specified] 09-23-2023 Episodic Results Test Name Value Interpretation Reference Range Facil ity Vital Signs Date Time Vital Sign Value Performing Clinician Yaa carlson 09-16-2023 14:47-0500 Body height 152.4 cm Merline Almanza APRN.CNP Work Phone: [facility] 09-16-2023 14:47-0500 Body weight 40.55 kg Merline Almanza APRN.CNP Work Phone: [facility] 09-16-2023 14:47-0500 Diastolic blood pressure 80 mm[Hg] Merline Almanza APRN.CNP Work Phone: [facility] 09-16-2023 14:47-0500 Systolic blood pressure 124 mm[Hg] Merline Almanza [employer] Work Phone: [facility] 02-13-2023 19:43-0400 Body height 152.4 cm Azeem Herrera Work Phone: [facility] Work Phone: 02-13-2023 19:43-0400 Body mass index (BMI) [Ratio] 19.33 kg/m2 Houston Lalurenay Work Phone: [facility] Work Phone: 02-13-2023 19:43-0400 Body surface area Derived from formula 1.38 m2 Azeem Herrera Work Phone: [facility] Work Phone: 02-13-2023 19:43-0400 Body temperature 97.9 [degF] Azeem Lorenzorenay Work Phone: [facility] Work Phone: 02-13-2023 19:43-0400 Body weight 44.91 kg Houston Sharon Work Phone: [facility] Work Phone: 02-13-2023 19:43-0400 Diastolic blood pressure 72 mm[Hg] Azeem Herrera Work Phone: [facility] Work Phone: 02-13-2023 19:43-0400 Heart rate 102 /min Azeem Herrera Work Phone: [facility] Work Phone: 02-13-2023 19:43-0400 Respiratory rate 14 /min Azeem Herrera Work Phone: [facility] Work Phone: 02-13-2023 19:43-0400 SaO2% (BldA) [Mass fraction] 96 % Azeem Herrera Work Phone: [facility] Work Phone: 02-13-2023 19:43-0400 Systolic blood pressure 139 mm[Hg] Azeem Herrera Work Phone: [facility] Work Phone: 02-13-2023 19:43-0400 0 1 Azeem Lorenzorenay Work Phone: [facility] Work Phone: Encounters Encounter Date Encounter Type Care Provider Facility Start: 09-23-2023 Orders Only Merline DORSEY RN.[employer] Work Phone: OB/Gynecology Procedures Date Procedure Procedure Detail Performing Clinician Start: 09-20-2023 Us transvaginal Merline benito APRN.[employer] Work Phone: Start: 09-16-2023 Iadna chlamydia trachomatis amplified probe tq Merline Almanza APRN.[employer]SULT[employer] Work Phone: Appendectomy Azeem Herrera Work Phone: section Azeem haynes Work Phone: Surgical procedure o n eye proper Azeem Herrera Work Phone: Plan of Treatment Date Care Activity Detail Author Start: 09-16-2028 HPV Testing HPV Testing [facility] Start: 08-29-2028 Urine microalbumin profile DTaP,Tdap,Td Vaccine (4 - Td or Tdap) [facility] Start: 09-16-2023 End: 12-16-2023 Bacteria identified in Urine by Culture URINE CULTURE Microbiology Routine Pelvic pain in female Expected: 09/16/2023, Expires: 12/16/2023 [facility] Work Phone: Immunizations Immunization Date Immunization Notes Care Provider Fa cilididier 09-10-2017 influenza virus vacc ine, unspecified formulation Merline Almanza APRN.[employer]ELOP[employer] CONSULTANT Work Phone: [facility] Payers Date Payer Category Payer Medicaid [id number] 2020 Medicaid [id number] 2008 Unknown 1993 Unknown [id number] 2.16.8 [id number] 1993 Unknown [id number] 2.16.8 [id number] 1993 Unknown [id number] 2.16.8 [id number] 1993 Unknown [id number] 2.16.8 [id number] 1993 Unknown [id number] 2.16.8 [id number] 1993 Unknown [id number] 2.16.8 [id number] 1993 Unknown [id number] 2.16.8 [id number] 1993 Unknown [id number] 2.16.8 [id number] 1993 Unknown [id number] 2.16.8 [id number] 1993 Unknown [id number] 2.16.8 [id number] 1993 Unknown [id number] 2.16.8 [id number] 1993 Unknown [id number] 2.16.8 [id number] 1993 Unknown [id number] 2.16.8 [id number] 1993 Unknown [id number] 2.16.8 [id number] 1993 Unknown [id number] 2.16.8 [id number] 1993 Unknown [id number] 2.16.8 [id number] Social History Date Type Detail Facility Start: 09-16-2023 Never smoker Never smoker [facility] Work Phone: Start: 09-16-2023 [facility] Start: 09-16-2023 Tobacco use and exposure Smokeless tobacco non-user [facility] Start: 09-16-2023 Alcohol intake Current drinke r of alcohol (finding) [facility] Start: 09-16-2023 Tobacco use panel [facility] National Score (1-100), lower number is lower risk 71 [facility] Start: 1995 Sex Assigned At Not on file [facility] Clinical Notes 07-27-2022 to 09-23-2023 Telephone Encounter - Kelly Donato RN - 09/23/2023 9:41 AM ESTTelephone Encounter - Janie Smith RN - 09/23/2023 9:12 AM Michaelle Manley RDMS - 09/20/2023 10:45 AM EST Note Date & Type Note Facility 09-23-2023 Miscellaneous Notes Patient notified regarding below messages from provider. Kelly Donato RN Left message for patient to call office. JANIE SMITH RN Urine culture positive for UTI. Macrobid 100 mg BID for 7 days sent to pharmacy. Confirm no allergies to Macrobid. Merline Almanza APRN.CNP Please notify patient: All labs and cultures normal. Ultrasound normal. I suspect her chronic pain might be a GI issue. I see she has a GI appointment on 10/02. Periods may be irregular to low BMI and weight loss. To follow up with PCP after GI appointment. Merline Almanza APRN.CNP documented in this encounter [facility] 09-20-2023 Note HNO ID: [id number] Author: Michaelle Guerrire RDMS Service: ? Author Type: Scientific Laboratory Supervisor Type: Progress Notes Filed: 09/20/2023 11:12 AM Note Text: Radiology Service Progress Note PATIENT NAME: Tasneem Westbrook DATE OF SERVICE: September 20, 2023 TIME: 11:12 AM PATIENT IDENTITY VERIFICATION COMPLETED USING TWO (2) IDENTIFIERS: Name and Date of confirmed by patient verbally. FALL SCREENING: Has the patient had 2 falls in the last year or 1 fall with injury or currently using an Ambulatory Assistive Device (Walker, Cane, Wheelchair, Crutches, etc.)? No PATIENT GENDER DATA: Female. status: : No status: NO. PATIENT RELEVANT IMPLANT DATA REVIEWED: Not Applicable RADIOLOGY DEPARTMENT: Ultrasound PERIPHERAL IV DATA: Not applicable SIGNED BY: Michaelle Guerrier RDMS September 20, 2023 11:12 AM [facility] 09-20-2023 History of Presen t illness Narrative Radiology Service Progress Note PATIENT NAME: Tasneem Westbrook DATE OF SERVICE: September 20, 2023 TIME: 11:12 AM PATIENT IDENTITY VERIFICATION COMPLETED USING TWO (2) IDENTIFIERS: Name and Date of confirmed by patient verbally. FALL SCREENING: Has the patient had 2 falls in the last year or 1 fall with injury or currently using an Ambulatory Assistive Device (Walker, Cane, Wheelchair, Crutches, etc.)? No PATIENT GENDER DATA: Female. status: : No status: NO. PATIENT RELEVANT IMPLANT DATA REVIEWED: Not Applicable RADIOLOGY DEPARTMENT: Ultrasound PERIPHERAL IV DATA: Not applicable SIGNED BY: Michaelle Guerrier RDMS September 20, 2023 11:12 AM documented in this encounter [facility] 09-16-2023 Note HNO ID: [id number] Author: Merline Almanza APRN.RADHA Service: ? Author Type: Nurse Practitioner Type: Progress Notes Filed: 09/16/2023 3:43 PM Note Text: Beet End Supervisor offered: Patient declines. Tasneem is a 28 year old who presents for an annual gynecologic exam with complaints, pelvic pain . Menses: every 2 weeks, 5-7 days of flow Contraception: tubal sterilization HPV vaccine: Unknown Last Pap: 2015, normal HPV: Unknown History of abnormal pap: Unknown Last mammogram: never Sexually active: Yes History of STDS: None Pain with intercourse: Yes, sometimes Postcoital bleeding: No PROBLEM VISIT Has had chronic pelvic pain for 8-9 years, since having her daughter. Has tried control in the past, with no relief. Has tried the nexplanon and pill. Takes Ibuprofen. Went to ER recently for the pain. Has previously been diagnosed with PCOS. Had tubal, reports that surgeon told her she has endometriosis. Also reports unintended weight loss and hair loss. OB History T0 L0 SAB0 IAB0 Ectopic0 Multiple0 Live Births0 Color Artist History LMP: 09/09/2023, Having periods Age at Menarche: Age at First : Age at Menopause: Color Artist History Comments: Sexual Activity: Yes; Male Contraception: Tubal Ligation PAST MEDICAL HISTORY Diagnosis Date Endometriosis Heart murmur PCOS (polycystic ovarian syndrome) PAST SURGICAL HISTORY Procedure Laterality Date APPENDECTOMY SECTION HX x2 EYE SURGERY HX LIGATE FALLOPIAN TUBE Bilateral Salpingectomy FAMILY HISTORY Problem Relation Age of Onset other (hysterectomy) Mother other (hysterectomy) Sister other (hysterectomy) Sister other (hysterectomy) Maternal Aunt pre-cancerous endometrial cells SOCIAL HISTORY Social History Tobacco Use Smoking status: Never Smokeless tobacco: Never Vaping Use Vaping Use: current everyday user Substance Use Topics Alcohol use: Yes Drug use: Yes Types: Marijuana Comment: Medical Card REVIEW OF SYSTEMS Abdomen: No abdominal pain, nausea, vomiting, diarrhea, or constipation. No bloating, early satiety, indigestion, or increased flatulence. Bladder: No dysuria, gross hematuria, urinary frequency, or incontinence. + urinary urgency Breast: No breast lumps, nipple d/c, overlying skin changes, redness or skin retraction. Allergies and current medication updated:Yes EXAM: BP 124/80 Ht 5' 0 (1.52m) Wt 89 lb 6.4 oz (40.6kg) LMP 09/09/2023 BMI 17.46 kg/(m2). GENERAL: pleasant, female in no apparent distress HEENT: Normocephalic, atraumatic, mucus membranes moist, and no lesions NECK: Supple, full range of motion, no adenopathy, and thyroid normal DERMATOLOGY: Normal, without lesions, non-icteric, and non-hirsute BREAST: soft, non-tender, symmetric, no dominant mass, normal nipple-areolar complex, no lymphadenopathy, and no nipple discharge CHEST: Normal inspiratory effort ABDOMEN: soft, no masses. + guarding and tenderness noted to lower quadrants bilaterally PELVIC: external genitalia normal, normal Bartholin's glands, urethra, [place]'s glands, no vulvar lesions, no cervical lesions, good vaginal support, physiologic discharge present, normal appearing perineal body and perianal region BIMANUAL: uterus normal size, shape and consistency, no adnexal masses. + tenderness to bilateral lower quadrants of abdomen RECTOVAGINAL: deferred. NEURO: alert and oriented x3,exam grossly non-focal EXTREMITIES: normal ASSESSMENT/PLAN: 1) Health maintenance: Pap done with HPV. Nutrition, exercise and routine health maintenance exams reviewed. Smoking marijuana daily for pain - encouraged cessation of smoking. 2) Contraception: tubal sterilization. Contraceptive options reviewed and information provided. 3) STD screening: Declined STD check. 4) Follow up one year or sooner as needed PROBLEM Pelvic pain in female - ICD9: 625.9, ICD10: R10.2 - US FEMALE PELVIS TRANSVAG - BACT/ED VAG GRAM STAIN - GONORRHEA/CHLAMYDIA NAAT - TRICHOMONAS VAGINALIS NAAT - URINE CULTURE Irregular menses - ICD9: 626.4, ICD10: N92.6 - FSH BLD - LUTEINIZING HORMONE - ESTRADIOL-17B BLD - PROLACTIN BLD - TESTOSTERONE TOTAL - CBC Lower abdominal pain - ICD9: 789.09, ICD10: R10.30 - Guarding present - Patient reports this is chronic, intensity increases intermittently - No fever, nausea, or vomiting - Hx of appendectomy - Patient reports that she was just seen in ER within the last week - To go back to ER with worsening nausea, vomiting, or fever - Patient verbalizes understanding - No palpable signs of acute abdominal distress - CONSULT TO GASTROENTEROLOGY Underweight - ICD9: 783.22, ICD10: R63.6 - Patient reports that she is eating a lot - Reports she does have anxiety - Denies thoughts of self harm or harming others - Reports that she is lactose intolerant - Has never seen a GI doctor - GI consult placed (more content not included)... [facility] 09-16-2023 Miscellaneous Notes Addended by: MERLINE ALMANZA on: 09/16/2023 03:46 PM Modules accepted: Orders documented in this encounter [facility] 09-16-2023 Instructions Merline Almanza APRN.CNP - 09/16/2023 3:04 PM EST Avoid bladder irritants - spicy, citrus, tomatoes, smoking, coffee, tea, pop, carbonation, artificial sweeteners and alcohol to help with urinary urgency. documented in this encounter [facility] 09-16-2023 History of Presen t illness Narrative Beet End Supervisor offered: Patient declines. Tasneem is a 28 year old who presents for an annual gynecologic exam with complaints, pelvic pain . Menses: every 2 weeks, 5-7 days of flow Contraception: tubal sterilization HPV vaccine: Unknown Last Pap: 2016, normal HPV: Unknown History of abnormal pap: Unknown Last mammogram: never Sexually active: Yes History of STDS: None Pain with intercourse: Yes, sometimes Postcoital bleeding: No PROBLEM VISIT Has had chronic pelvic pain for 8-9 years, since having her daughter. Has tried control in the past, with no relief. Has tried the nexplanon and pill. Takes Ibuprofen. Went to ER recently for the pain. Has previously been diagnosed with PCOS. Had tubal, reports that surgeon told her she has endometriosis. Also reports unintended weight loss and hair loss. OB History T0 L0 SAB0 IAB0 Ectopic0 Multiple0 Live Births0 Color Artist History LMP: 09/09/2023, Having periods Age at Menarche: Age at First : Age at Menopause: Color Artist History Comments: Sexual Activity: Yes; Male Contraception: Tubal Ligation PAST MEDICAL HISTORY Diagnosis Date Endometriosis Heart murmur PCOS (polycystic ovarian syndrome) PAST SURGICAL HISTORY Procedure Laterality Date APPENDECTOMY SECTION HX x2 EYE SURGERY HX LIGATE FALLOPIAN TUBE Bilateral Salpingectomy FAMILY HISTORY Problem Relation Age of Onset other (hysterectomy) Mother other (hysterectomy) Sister other (hysterectomy) Sister other (hysterectomy) Maternal Aunt pre-cancerous endometrial cells SOCIAL HISTORY Social History Tobacco Use Smoking status: Never Smokeless tobacco: Never Vaping Use Vaping Use: current everyday user Substance Use Topics Alcohol use: Yes Drug use: Yes Types: Marijuana Comment: Medical Card REVIEW OF SYSTEMS Abdomen: No abdominal pain, nausea, vomiting, diarrhea, or constipation. No bloating, early satiety, indigestion, or increased flatulence. Bladder: No dysuria, gross hematuria, urinary frequency, or incontinence. + urinary urgency Breast: No breast lumps, nipple d/c, overlying skin changes, redness or skin retraction. Allergies and current medication updated:Yes EXAM: BP 124/80 Ht 5' 0 (1.52m) Wt 89 lb 6.4 oz (40.6kg) LMP 09/09/2023 BMI 17.46 kg/(m^2). GENERAL: pleasant, female in no apparent distress HEENT: Normocephalic, atraumatic, mucus membranes moist, and no lesions NECK: Supple, full range of motion, no adenopathy, and thyroid normal DERMATOLOGY: Normal, without lesions, non-icteric, and non-hirsute BREAST: soft, non-tender, symmetric, no dominant mass, normal nipple-areolar complex, no lymphadenopathy, and no nipple discharge CHEST: Normal inspiratory effort ABDOMEN: soft, no masses. + guarding and tenderness noted to lower quadrants bilaterally PELVIC: external genitalia normal, normal Bartholin's glands, urethra, [place]'s glands, no vulvar lesions, no cervical lesions, good vaginal support, physiologic discharge present, normal appearing perineal body and perianal region BIMANUAL: uterus normal size, shape and consistency, no adnexal masses. + tenderness to bilateral lower quadrants of abdomen RECTOVAGINAL: deferred. NEURO: alert and oriented x3,exam grossly non-focal EXTREMITIES: normal ASSESSMENT/PLAN: 1) Health maintenance: Pap done with HPV. Nutrition, exercise and routine health maintenance exams reviewed. Smoking marijuana daily for pain - encouraged cessation of smoking. 2) Contraception: tubal sterilization. Contraceptive options reviewed and information provided. 3) STD screening: Declined STD check. 4) Follow up one year or sooner as needed PROBLEM Pelvic pain in female - ICD9: 625.9, ICD10: R10.2 - US FEMALE PELVIS TRANSVAG - BACT/ED VAG GRAM STAIN - GONORRHEA/CHLAMYDIA NAAT - TRICHOMONAS VAGINALIS NAAT - URINE CULTURE Irregular menses - ICD9: 626.4, ICD10: N92.6 - FSH BLD - LUTEINIZING HORMONE - ESTRADIOL-17B BLD - PROLACTIN BLD - TESTOSTERONE TOTAL - CBC Lower abdominal pain - ICD9: 789.09, ICD10: R10.30 - Guarding present - Patient reports this is chronic, intensity increases intermittently - No fever, nausea, or vomiting - Hx of appendectomy - Patient reports that she was just seen in ER within the last week - To go back to ER with worsening nausea, vomiting, or fever - Patient verbalizes understanding - No palpable signs of acute abdominal distress - CONSULT TO GASTROENTEROLOGY Underweight - ICD9: 783.22, ICD10: R63.6 - Patient reports that she is eating a lot - Reports she does have anxiety - Denies thoughts of self harm or harming others - Reports that she is lactose intolerant - Has never seen a GI doctor - GI consult placed Unintended weight loss - ICD9: 783.21, ICD10: R63.4 - TSH BLD - T4 FREE/FREE THYROX - GI consult Hair loss - ICD9: 704.00, ICD10: L65.9 - Thyroid labs Merline Almanza APRN.CNP Medical Decision Making: Problems: Moderate: 1+ chronic illnesses with change Data: Unique test(s) ordered: 3+ Risk: Low: Low risk from testing/treatment Medical Decision Making Level: 4 - Moderate documented in this encounter [facility] 02-19-2023 Note ED Nursing Discharge Summary Entered On: 02/18/2023 23:32 EDT Performed On: 02/18/2023 23:32 EDT by Beena Heredia RN NE Information [id number] ED IV's : Discontinue ED IV Site Assessment : Yes, Completed in [facility]View ED Vitals Completed : Yes ED Final Assessment Completed : Yes ED Progress Note Completed : Yes Complete all PRN/Pain response forms? : N/A ED Disassociate Patient from Monitor : Yes Updated Depart Time : Yes ED Belongings sent w patient [id number] : Not applicable Beena Heredia RN - 02/18/2023 23:32 EDT Education Instructions given to : Patient TeachBack Methodology : Explanation, Printed Material Barriers to Learning : None evident Beena Heredia RN - 02/18/2023 23:32 EDT Post-Hospital Education Adult Grid Diagnostic Results : Verbalizes understanding Disease Process : Verbalizes understanding Plan of Care : Verbalizes understanding Beena Heredia RN - 02/18/2023 23:32 EDT ED Assistance Summary Assistance Given? : No Beena Heredia RN - 02/18/2023 23:32 EDT [facility] 02-19-2023 Note PROCEDURE: US PELVIS TRANSVAGINAL, US DOPPLER dated 02/18/2023 7:10 PM CDT CLINICAL HISTORY: Female 27 years of age. PELVIC PAIN TECHNIQUE: Sonographic evaluation of the pelvis was performed. PREVIOUS STUDIES: February 13, 2023. FINDINGS: Uterus measures 8:00 PM by 6 cm x 3 cm. Double layer endometrial stripe thickness measures 0.1 cm. Right ovary measures 4.2 cm x 3.16 x 2.5 cm and contains a complex right ovarian nonvascular lesion that is unchanged compared with the recent study, measuring 3.3 cm x 3.2 cm x 2.4 cm. It contains isoechoic and hypoechoic areas. Left ovary is normal and measures 2.5 cm x 1.4 cm x 1.6 cm. There is no free fluid. Doppler demonstrates flow within the ovaries. IMPRESSION: No torsion. Stable complex right ovarian cyst, likely hemorrhagic. No follow-up imaging is recommended. Electronically signed by: Rachna Gould MD 02/18/2023 9:52 PM CDT Technologist: SILAS Dictated By: RACHNA AVILA MD Signed By: RACHNA AVILA MD Signed Out: 02/18/23 22:52:04 [facility] 02-19-2023 Note PROCEDURE: US PELVIS TRANSVAGINAL, US DOPPLER dated 02/18/2023 7:10 PM CDT CLINICAL HISTORY: Female 27 years of age. PELVIC PAIN TECHNIQUE: Sonographic evaluation of the pelvis was performed. PREVIOUS STUDIES: February 13, 2023. FINDINGS: Uterus measures 8:00 PM by 6 cm x 3 cm. Double layer endometrial stripe thickness measures 0.1 cm. Right ovary measures 4.2 cm x 3.16 x 2.5 cm and contains a complex right ovarian nonvascular lesion that is unchanged compared with the recent study, measuring 3.3 cm x 3.2 cm x 2.4 cm. It contains isoechoic and hypoechoic areas. Left ovary is normal and measures 2.5 cm x 1.4 cm x 1.6 cm. There is no free fluid. Doppler demonstrates flow within the ovaries. IMPRESSION: No torsion. Stable complex right ovarian cyst, likely hemorrhagic. No follow-up imaging is recommended. Electronically signed by: Rachna Gould MD 02/18/2023 9:52 PM CDT [facility] Diagnosis Pelvic pain in female Unspecified symptom associated with female genital organs documented [facility] Diagnosis Urinary tract infection without hematuria, site unspecified- Primary [facility] Diagnostic Procedure Only (Routine) - Closed Specialty Diagnoses / Procedures Referred By Julio César gonzalez Referred To Contact [facility] Diagnoses Pelvic pain in female Procedures US FEMALE PELVIS TRANSVAG US TRANSVAGINAL Merline Almanza APRN.CNP [address] [place] [address] [place] [address] Referral ID Status Reason Start Date Expiration Date V isits Requested Visits Authorized [id number] Closed Auto-Generate d Referral 09/16/2023 10/15/2024 1 1 [facility] Summary Purpose Family History No Family History Records FoundUnknown Family Member Name Dates Details Family history of cataracts: Mother(V19.19, Z83.518) Status:Active Family history of diabetes m ellitus: Sister, Maternal Grandmother(V18.0, Z83.3) Status:Active Unknown Family Member Name Dates Details Family history of cataracts: Mother(V19.19, Z83.518) Status:Active Family history of diabetes m ellitus: Sister, Maternal Grandmother(V18.0, Z83.3) Status:Active Unknown Family Member Name Dates Details Family history of cataracts: Mother(V19.19, Z83.518) Status:Active Family history of diabetes m ellitus: Sister, Maternal Grandmother(V18.0, Z83.3) Status:Active Advance Directives No Advanced Directives Records FoundNo Advanced Directives Records FoundNo Advanced Directives Records FoundNo Advanced Directives Records FoundNo Advanced Directives Records FoundNo Advanced Directives Records Found Reason for Referral Specialty Diagnoses / Procedures Referred By Contac t Referred To Contact Gastroenterology Diagnoses Lower abdominal pain Procedures CONSULT TO GASTROENTEROLOGY OFFICE/OUTPATIENT [facility] 60-74 MINUTES Merline Almanza APRN.[employer] [address] [place] [address] Referral ID Status Reason Start Date Expiration Date Visits Requested Visits Authorized [id number] Authorized PCP Requested Referral 3 09/15/2024 1 1 Specialty Diagnoses / Procedures Referred By Contac t Referred To Contact [facility] Diagnoses Pelvic pain in female Procedures US FEMALE PELVIS TRANSVAG US TRANSVAGINAL Merline Almanza APRN.[employer] [address] [place] [id number] [place] [address] Referral ID Status Reason Start Date Expiration Date Visits Requested Visits Authorized [id number] Authorized Auto-Generat ed Referral 3 10/15/2024 1 1 Additional Source Comments INFORMATION SOURCE (unrecogn ized section and content) DATE CREATED AUTHOR AUTHOR'S ORGANIZ ATION 11/25/2021 [facility] DATE CREATED AUTHOR AUTHOR'S ORGANIZ ATION 01/23/2022 [facility] DATE CREATED AUTHOR AUTHOR'S ORGANIZ ATION 02/20/2023 [facility] DATE CREATED AUTHOR AUTHOR'S ORGANIZ ATION 03/06/2023 [facility] DATE CREATED AUTHOR AUTHOR'S ORGANIZ ATION 09/30/2023 [facility] Source Comments (unrecognize d section and content) In the event this informatio n is protected by the Federal Confidentiality of Alcohol and Drug Abuse Patient Records regulations: The Federal rules restrict any use of the information to criminally investigate or prosecute any alcohol or drug abuse patient.[facility] the event this information is protected by the Federal Confidentiality of Alcohol and Drug Abuse Patient Records regulations: The Federal rules restrict any use of the information to criminally investigate or prosecute any alcohol or drug abuse patient.[facility] the event this information is protected by the Federal Confidentiality of Alcohol and Drug Abuse Patient Records regulations: The Federal rules restrict any use of the information to criminally investigate or prosecute any alcohol or drug abuse patient.[facility] the event this information is protected by the Federal Confidentiality of Alcohol and Drug Abuse Patient Records regulations: The Federal rules restrict any use of the information to criminally investigate or prosecute any alcohol or drug abuse patient.[facility] Reason for Visit (unrecogniz ed section and content) Reason Comments Radiology US Specialty Diagnoses / Procedures Referred By Julio César gonzalez Referred To Contact US IMAGING Diagnoses Pelvic pain in female Procedures US FEMALE PELVIS TRANSVAG US TRANSVAGINAL Merline Almanza APRN.[employer] [address] [place] [address] [place] [address] Referral ID Status Reason Start Date Expiration Date V isits Requested Visits Authorized [id number] Closed Auto-Generate d Referral 09/16/2023 10/15/2024 1 1 Reason Comments Results FOR RECORDS PERTAINING TO PATIENTS WHO ARE OR HAVE BEEN ENROLLED IN A CHEMICAL DEPENDENCY/SUBSTANCEABUSE PROGRAM, SOME INFORMATION MAY BE OMITTED. This clinical summary was aggregated from multiple sources. Caution should be exercised in using it in the provision of clinical care. This summary normalizes information from multiple sources, and as a consequence, information in this document may materially change the coding, format and clinical context of patient data. In addition, data may be omitted in some cases. CLINICAL DECISIONS SHOULD BE BASED ON THE PRIMARY CLINICAL RECORDS. [facility] [employer] [facility]. provides no warranty or guarantee of the accuracy or completeness of information in this document.
[2023-11-09 11:11] VITALS: BP 124/69; PULSE 72; RESP 15; O2SAT 98
--- NOTE | 2023-11-09 11:31 | ED.RN ---
PT TOOK OUT HER OWN IV AND GOT DRESSED STATING SHE NEEDS TO LEAVE. HER DAUGHTER HAS A BIRTHDAY GREEN PARTY AT [place] SHE DOESN'T WANT HER TO MISS. VERIFIED IV WAS OUT AND EXPLAINED SHE IS FREE TO LEAVE. EXPLAINED THE PHYSICIAN WOULD BE IN SOON THEY CAN AND THEY ARE BUSY IN THE ER. PT STATES SHE NEEDS TO LEAVE AND NEEDS A WORK NOTE. EXPLAINED SHE WILL NOT GET A WORK NOTE WITHOUT BEING DISCHARGED BY THE DR. PT STATES SHE NEEDS ONE. EXPLAINED PT CAN DECIDE HOW SHE WANTS TO HANDLE THIS. DR TOLBERT IS AWARE OF SITUATION
[2023-11-09 12:10] VITALS: BP 116/78; PULSE 64; RESP 14; TEMP 36.4; O2SAT 99
== END 2023-11-09 12:11 | disposition home or self-care (01) ==
PROVIDERS: Emergency Provider Emergency Medicine; Visit Provider Emergency Medicine
DX: R10.9 Unspecified abdominal pain (principal); N20.0 Calculus of kidney; Z87.442 Personal history of urinary calculi
CPT/HCPCS: 74176; 80048; 81001; 84703; 85025; 96361; 96374; 96375; 99283; J2405

== ENCOUNTER → 2024-01-17 | Outpatient (CLI) | payer MEDICAID, SELFPAY | END | disposition home or self-care (01) | PROVIDERS: PCP Internal Medicine; Referring Provider Physician Assistant Surgical; Visit Provider Physician Assistant Surgical | DX: Z02.1 Encounter for pre-employment examination (principal); N39.0 Urinary tract infection, site not specified | CPT/HCPCS: 87077; 87086; 87088; 87186 ==

== ENCOUNTER → 2024-02-18 | Outpatient (CLI) | payer MEDICAID, SELFPAY ==
[2024-02-18 15:50] LABS: ALB/GLOB Ratio 1.3 RATIO (0.9-2.4); AST(SGOT) 15 U/L (15-37); Alanine Aminotransfer ALT/SGPT 22 U/L (13-56); Albumin, Serum 3.9 g/dL (3.2-5.0); Alkaline Phosphatase 65 U/L (45-117); Anion Gap 5 (5-15); BUN 9 mg/dL (7-18); BUN/Creat Ratio 15.2 RATIO (10-20); Calcium,Total 9.3 mg/dL (8.5-10.1); Chloride 111 mmol/L (98-107); Creatinine, Serum 0.59 mg/dL (0.55-1.02); EST Glomerular Filtration Rate 126 mL/min (>60); Est Glom Filt Rate - Afr Amer 153 mL/min (>60); Glucose 93 mg/dL (74-106); Potassium 3.6 mmol/L (3.5-5.1); Protein, Total 6.9 g/dL (6.4-8.2); Sodium Level 142 mmol/L (136-145)
[2024-02-18 16:01] LABS: Vitamin B12 476 pg/mL (211-911); Vitamin D,25 Hydroxy 26.2 ng/mL
[2024-02-20 16:10] LABS: Endomysial Antibody IgA Negative (Negative); Immunoglobulin A 149 mg/dL (87-352); t-Transglutaminase IgA <2 U/mL (0-3)
[2024-02-21 12:09] LABS: Anti-Centromere B Ab <0.2 AI (0.0-0.9); Anti-Chromatin <0.2 AI (0.0-0.9); Anti-Jo <0.2 AI (0.0-0.9); Anti-Nuclear Antibody Test Positive (.); Anti-Scleroderma-70 AB <0.2 AI (0.0-0.9); Anti-dsDNA Ab <1 IU/mL (0-9); RNP Ab <0.2 AI (0.0-0.9); SJOGREN'S Anti-SS-A test < 0.2 AI (0.0-0.9); SJOGREN'S Anti-SS-B test < 0.2 AI (0.0-0.9); Smith Ab <0.2 AI (0.0-0.9)
== END | disposition home or self-care (01) ==
LOC: BIMLAB 12:16
PROVIDERS: PCP Internal Medicine; Visit Provider Internal Medicine
DX: R10.9 Unspecified abdominal pain (principal); G89.29 Other chronic pain; M25.50 Pain in unspecified joint; R42 Dizziness and giddiness; E56.9 Vitamin deficiency, unspecified
CPT/HCPCS: 36415; 80053; 82306; 82607; 82784; 83516; 86038; 86225; 86235; 86255

== ENCOUNTER 2024-03-09 00:16 | Emergency (ER) | payer MEDICAID, SELFPAY ==
[2024-03-09 00:16] VITALS: BP 102/73; PULSE 84; RESP 16; TEMP 35.8; O2SAT 98
[2024-03-09 00:17] VITALS: BP 102/73; PULSE 84; RESP 18; TEMP 35.5; O2SAT 98; BMI 18.7
--- NOTE | 2024-03-09 00:32 | EX.ED.DYSGE1 ---
HPI History of Present Illness Chief Complaint: Flank Pain Informant: patient Onset/Context/Timing Onset: Days (2-3) Context: Gradual Onset Timing: Waxes and wanes Quality: Throbbing Location: Left flank Worsened by: Moving, breathing, coughing Relieved by: Rest, heat Narrative Narrative: Patient presents with left flank pain that became worse tonight. Patient states it is gradually gotten worse over the last 2 to 3 days. Patient states she was at work tonight when the pain became severe. Patient states the pain has been waxing and waning over the past couple days. Patient describes it as throbbing. Patient states it is mainly over the left flank area. Patient states it is worse with moving, deep breathing, and coughing. Patient states it is better with rest and with heat at times. Patient admits to some dizziness where she feels like her vision gets blurry. Patient admits to some urinary frequency but denies any dysuria or hematuria. Patient admits to some nausea and vomiting due to the pain. PFSH PFS Medical History Anemia Bladder infection Bone fracture Breast lump Chronic bronchitis Emotional problems Endometriosis Gallstone Gastrointestinal problem Head ache Kidney infection Kidney stone PCOS (polycystic ovarian syndrome) Vision problem Vitamin deficiency Home Medications ciprofloxacin HCl 500 mg tablet 500 mg PO BID #14 TABLETS 03/09/24 [Rx Last Taken Unknown] Allergy/AdvReac Type Severity Reaction Status Date / Time latex AdvReac Mild rash Verified 03/09/24 00:17 BACTRIM AdvReac Intermediate Itching Uncoded 02/18/24 11:09 Family History (Updated 02/18/24 @ 11:[address] Lizeth Brandt MD) Sister Anxiety Asthma Diabetes Mother Scoliosis Asthma Arthritis Cancer uterus (precancerous) Mental health disorder anxiety/depression/ drug addiction Sister Mental health disorder depression, Bipolar Anxiety Schizophrenia Daughter Thyroid disorder at - resolved Surgical History H/O eye surgery History of 2 sections History of salpingectomy History of surgical procedure Hx of appendectomy Social History household members: significant other and children housing: house current occupational status: employed current occupation: [employer] Smoking Status: Never smoker Electronic Cigarette Use: not used alcohol intake: never substance use type: does not use what type of physical activity do you participate in: walking seatbelt use: always do you feel safe at home: Yes ROS ROS ED Constitutional Constitutional ED: Denies chills or fever(s) Eyes Eyes: Reports blurry vision; Denies diplopia ENT ENT ED: Denies rhinorrhea or sore throat Cardiovascular Cardiovascular: Denies chest pain or palpitations Respiratory/Chest Respiratory/Chest: Denies cough or dyspnea Gastrointestinal Gastrointestinal: Reports abdominal pain, nausea and vomiting Genitourinary Genitourinary ED: Reports urinary frequency; Denies dysuria or hematuria Musculoskeletal Musculoskeletal: Reports back pain; Denies neck pain Integumentary Denies abscess or rash Neurologic Neurologic: Denies headache(s) or weakness Allergic/Immunologic Allergic/Immunologic ED: Denies mouth swelling or urticaria EXAM Physical Exam Const Vital Signs: 03/09/24 00:17 03/09/24 00:16 Temperature 96 F L 96.4 F L Temperature Source Temporal Temporal Pulse Rate 84 84 Respiratory Rate 18 16 Blood Pressure 102/73 102/73 Blood Pressure Mean 82 82 Pulse Ox 98 98 Oxygen Delivery Method Room Air Room Air Positive well nourished and well developed General Appearance ED: well developed and NAD HEENT Reports moist mucous membranes Neck supple and no JVD Resp normal respiratory effort and clear to auscultation bilaterally Cardio regular rate and regular rhythm GI non-distended Palpation: soft and tender LLQ, LUQ and suprapubic; Negative for rebound tenderness present Back/Spine General Back: CVA tenderness left Extremity normal to inspection General Extremety ED: Negative for edema or tenderness General Extremity: Negative for edema Neuro oriented x3, CN's II-XII intact bilaterally and no sensory deficits noted Sensorium / Orientation: alert Motor Exam: strength 5/5 throughout MDM MDM MDM Narrative Medical decision making narrative: Differential diagnosis includes ureteral calculus, pyelonephritis, urinary tract infection, viral illness, diverticulitis, bowel obstruction, and perforation. CT scan of the abdomen pelvis will be obtained to assess for ureteral calculus, bowel obstruction, and perforation. CBC will be obtained to assess for leukocytosis and anemia. Basic metabolic profile will be obtained to assess for electrolyte abnormality and renal function. Serum hCG will be obtained to assess for . Urinalysis will be obtained to assess for urinary tract infection and hematuria. Lab Data Attestation: I reviewed the patient's lab results. Lab results narrative: CBC was reviewed and was within normal limits. Basic metabolic profile was reviewed and was within normal limits. Serum hCG was reviewed and was negative. Urinalysis was reviewed. Leukocyte esterase was 500 with 10-25 white blood cells and 3+ bacteria. Urine occult blood was 250 with 10-25 red blood cells seen. Labs: Laboratory Results - last 24 hr 03/09/24 00:52 WBC 7.8 RBC 4.79 Hgb 14.3 Hct 43.9 MCV 91.6 MCH 29.9 MCHC 32.6 RDW Std Deviation 43.3 RDW Coeff of Darrell 12.8 Plt Count 217 MPV 9.3 Immature Gran % (Auto) 0.100 Neut % (Auto) 51.1 Lymph % (Auto) 32.6 [place] % (Auto) 10.7 H Eos % (Auto) 4.6 Baso % (Auto) 0.9 Absolute Neuts (auto) 4.0 Absolute Lymphs (auto) 2.53 Nucleated RBC % 0 Sodium 141 Potassium 4.2 Chloride 109 H Carbon Dioxide 28.0 Anion Gap 4 L BUN 13 Creatinine 0.52 L Estim Creat Clear Calc 108.63 Est GFR (MDRD) Af Amer 178 Est GFR (MDRD) Non-Af 147 BUN/Creatinine Ratio 25.0 H Glucose 99 Calcium 8.4 L Serum , Qual NEGATIVE Urine Color Yellow Urine Clarity Cloudy Urine pH 7.0 Ur Specific [place] 1.015 Urine Protein 100 H Urine Glucose (UA) Normal Urine Ketones Negative Urine Occult Blood 250 H Urine Nitrite Negative Urine Bilirubin Negative Urine Urobilinogen Normal Ur Leukocyte Esterase 500 H Urine RBC 10-25 SEEN Urine WBC 10-25 SEEN Ur Squamous Epith Cells 0 SEEN Urine Bacteria 3+ Urine Mucus 0 SEEN Radiography Diagnostic Testing: Clinical Impression(s) from Imaging Studies Abdomen/Pelvis CT 03/09/24 00:39 IMPRESSION: There is a 9 mm stone in the left renal pelvis, likely causing intermittent obstruction at the ureteropelvic junction, as there is mild left hydronephrosis. Electronically Signed: Manuel Ridley MD at 1:57 EDT , CT scan of the abdomen pelvis was obtained. There is a 9 mm calculus in the left renal pelvis likely causing intermittent obstruction. There is mild left hydronephrosis. Treatment and Re-Evaluation :: Patient was given IV fluids, Zofran, and Toradol. Patient is resting comfortably on reevaluation. Patient was advised of her findings. Patient was given a dose of Rocephin here. Patient was given a prescription for Cipro. Patient was given a referral for urology. Patient was instructed to follow-up with urology and her primary care physician in 3 to 5 days. Patient was instructed to return if worse in any way. Patient understood and was agreeable with the plan. All questions were answered. Discharge Plan Triage Chief Complaint: Flank Pain ED Provider: Bobby Jolly Dx/Rx/DC Orders Clinical Impression: Pyelonephritis, Left nephrolithiasis Instructions: ED Pyelonephritis, Female (Adult) Prescriptions: New ciprofloxacin HCl [ciprofloxacin HCl] 500 mg tablet 500 mg PO BID Qty: 14 0RF Primary Care Provider: Lizeth Brandt Referrals: Lizeth Brandt MD [Primary Care Provider] - 3-5 Days Kelsey Cortez MD [Med Staff - Active Staff] - 3-5 Days Disposition Disposition: Home, Self Care
--- NOTE | 2024-03-09 00:39 | CT_ITS ---
EXAM: CT ABDOMEN AND PELVIS WITHOUT INTRAVENOUS CONTRAST CLINICAL INDICATION: Left flank pain TECHNIQUE: Helically acquired images were obtained of the abdomen and pelvis without intravenous contrast. This CT exam was performed using one or more of the following dose reduction techniques: automated exposure control, adjustment of the mA and/or kV according to patient size, and/or use of iterative reconstruction technique. RADIATION DOSE: CTDIvol = 6.04 mGy, DLP = 312.77 mGy-cm COMPARISON: No relevant prior studies available. FINDINGS: LOWER THORAX: Unremarkable. Lung bases are clear. No cardiomegaly. No significant pericardial effusion. ABDOMEN: LIVER: Unremarkable. Homogeneous. GALLBLADDER AND BILE DUCTS: Unremarkable. No calcified gallstones. No gallbladder distention or wall edema. No intra- or extrahepatic biliary ductal dilation. PANCREAS: Unremarkable. No focal cystic mass. SPLEEN: Unremarkable. Normal size without focal cystic or solid mass. ADRENALS: Unremarkable. No nodules. KIDNEYS AND URETERS: There is a 9 mm stone in the left renal pelvis, likely causing intermittent obstruction at the ureteropelvic junction, as there is mild left hydronephrosis. No other stones identified in the kidneys or ureters. STOMACH AND BOWEL: Moderate amount of stool in colon. No stomach or bowel distention. No focal inflammatory change. PELVIS: APPENDIX: Appendectomy. BLADDER: Unremarkable. REPRODUCTIVE: Unremarkable as visualized. No mass. ABDOMEN and PELVIS: INTRAPERITONEAL SPACE: Unremarkable. No ascites or other fluid collection. No free air. BONES/JOINTS: Unremarkable. No suspicious lytic or blastic abnormality. SOFT TISSUES: Unremarkable. No discrete abdominal or pelvic wall hernia. VASCULATURE: Unremarkable. Abdominal aorta is non-dilated. LYMPH NODES: Unremarkable. No enlarged lymph nodes. CT/Abdomen/Pelvis without Cont IMPRESSION: There is a 9 mm stone in the left renal pelvis, likely causing intermittent obstruction at the ureteropelvic junction, as there is mild left hydronephrosis. Electronically Signed: Manuel Ridley MD at 1:57 EDT ,
[2024-03-09] MEDS: Ondansetron 4 MG/2 ML Vial IV (00:50)
[2024-03-09] MEDS: Ketorolac 30 MG/ML Syringe IV (00:51)
[2024-03-09] MEDS: 0.9% Normal Saline (1000mL) 1,000 ML 1000 ML IV (00:51)
[2024-03-09 00:56] LABS: Mucous, Urine 0 SEEN /hpf (<or=2+); Squamous Epithelial Cells - UA 0 SEEN /hpf (5-10)
[2024-03-09 00:59] LABS: Absolute Lymphocyte Count 2.53 X10^3/uL (0.83-4.51); Basophil# 0.07 X10^3/uL; Basophil% 0.9 % (0-1); Eosinophil# 0.36 X10^3/uL; Eosinophils% 4.6 % (0-5); Hematocrit 43.9 % (37-47); Hemoglobin 14.3 g/dL (12.0-15.0); Lymphocyte # 2.53 X10^3/ul (0.83-4.51); Lymphocyte % 32.6 % (19-41); Mean Corp Hgb Conc 32.6 g/dL (32-36); Mean Corpuscular Hgb 29.9 pg (27.0-32.0); Mean Corpuscular Volume 91.6 fL (81-99); Mean Platelet Vol. 9.3 fl (6.2-12.0); Monocyte# 0.83 X10^3/uL; Monocyte% 10.7 % (0-10); NRBC Flagged by Analyzer 0 % (0-5); Neutrophil # 3.95 X10^3/uL (2.7-7.7); Neutrophil % 51.1 % (47-70); Platelet Count 217 K/mm3 (150-450); RBC Distribution Width CV 12.8 % (11.6-14.6); RBC Distribution Width SD 43.3 fl (35.1-43.9); Red Blood Count 4.79 M/mm3 (4.2-5.4); White Blood Count 7.8 K/mm3 (4.4-11.0)
[2024-03-09 01:00] LABS: Color, Urine Yellow (Yellow); Glucose, Dipstick Normal (Normal); Ketone-Dipstick Negative (Negative); Leukocyte Esterase-Dipstick 500 /ul (Negative); Nitrite-Dipstick Negative (Negative); Occult Blood-Urine 250 /ul (Negative); Protein-Dipstick 100 mg/dl (Negative); Specific Gravity, Urine 1.015 (1.002-1.030); Urine Bilirubin Dipstick Negative (Negative); Urine Clarity Cloudy (Clear); Urine Urobilinogen Normal (Normal)
[2024-03-09 01:12] LABS: Bacteria 3+ /hpf (None Seen); Internal QC Validated? YES +Cl - CLEAR BKGD; Pregnancy, Serum, hCG Quali. NEGATIVE Negative; Red Blood Cells-Urine 10-25 SEEN /hpf (0-5); White Blood Cells 10-25 SEEN /hpf (0-5)
[2024-03-09 01:13] LABS: Anion Gap 4 (5-15); BUN 13 mg/dL (7-18); Calcium,Total 8.4 mg/dL (8.5-10.1); Chloride 109 mmol/L (98-107); Creatinine, Serum 0.52 mg/dL (0.55-1.02); EST Glomerular Filtration Rate 147 mL/min (>60); Est Glom Filt Rate - Afr Amer 178 mL/min (>60); Estimated Creatinine Clearance 108.63 ml/min; Glucose 99 mg/dL (74-106); Potassium 4.2 mmol/L (3.5-5.1); Sodium Level 141 mmol/L (136-145)
[2024-03-09 02:16] VITALS: BP 110/65; PULSE 67; RESP 16; O2SAT 98
[2024-03-09] MEDS: Ceftriaxone 1 GM/50 ML BAG IV (02:16)
[2024-03-09 02:53] VITALS: BP 112/78; PULSE 68; RESP 17; TEMP 36.6; O2SAT 99
== END 2024-03-09 02:54 | disposition home or self-care (01) ==
PROVIDERS: Emergency Provider Emergency Medicine; PCP Internal Medicine; Visit Provider Emergency Medicine
DX: N13.2 Hydronephrosis with renal and ureteral calculous obstruction (principal); R11.2 Nausea with vomiting, unspecified; R35.0 Frequency of micturition
CPT/HCPCS: 74176; 80048; 81001; 84703; 85025; 96361; 96365; 96375; 99283; J7030; J7050; A4216; J2405

== ENCOUNTER → 2024-04-14 | Outpatient (CLI) | payer MEDICAID, SELFPAY ==
--- NOTE | 2024-04-14 12:43 | RAD_ITS ---
STUDY: X-RAY - ABDOMEN/PELVIS REASON FOR EXAM: Female, 28 years old. Renal stone. TECHNIQUE: Single AP view of the abdomen / pelvis. COMPARISON: CT of the abdomen and pelvis dated 07/10/2024 FINDINGS: Normal bowel gas pattern with air seen to the rectum. 7 mm in diameter calcification projected over the left renal shadow, unchanged from prior CT. Mild amount of feces in the colon. Air and feces obscure much of the intra-abdominal outlines. Phleboliths. Normal visualized osseous structures. RAD/Abdomen Single View IMPRESSION: 7 mm in diameter calcification projected over the left kidney. No other significant abnormality. Electronically Signed: Renato Cantrell MD at 13:01 EDT ,
== END | disposition home or self-care (01) ==
LOC: MTRAD 12:37
PROVIDERS: PCP Internal Medicine; Referring Provider Urology; Visit Provider Urology
DX: N20.1 Calculus of ureter (principal)
CPT/HCPCS: 74018

== ENCOUNTER 2024-04-17 21:15 | Emergency (ER) | payer MEDICAID, SELFPAY ==
[2024-04-17 21:16] VITALS: BP 119/58; PULSE 105; RESP 18; TEMP 36.3; O2SAT 95
[2024-04-17] MEDS: 0.9% Normal Saline (1000mL) 1,000 ML 999 ML IV (22:14)
[2024-04-17 22:15] VITALS: BP 117/77; PULSE 86; RESP 18; TEMP 36.6; O2SAT 99
[2024-04-17] MEDS: Ketorolac 30 MG/ML Syringe IV (22:15)
[2024-04-17] MEDS: Ondansetron 4 MG/2 ML Vial IV (22:15)
[2024-04-17 22:22] LABS: Squamous Epithelial Cells - UA 0 SEEN /hpf (5-10)
[2024-04-17 22:24] LABS: Color, Urine Yellow (Yellow); Glucose, Dipstick Normal (Normal); Ketone-Dipstick Negative (Negative); Leukocyte Esterase-Dipstick 500 /ul (Negative); Nitrite-Dipstick Negative (Negative); Occult Blood-Urine 50 /ul (Negative); Protein-Dipstick 30 mg/dl (Negative); Urine Bilirubin Dipstick Negative (Negative); Urine Clarity Sl. Cloudy (Clear); Urine Urobilinogen Normal (Normal)
[2024-04-17 22:26] LABS: Absolute Lymphocyte Count 3.33 X10^3/uL (0.83-4.51); Absolute Neutrophil Count 3.7 X10^3/uL (2.0-7.7); Basophil# 0.08 X10^3/uL; Eosinophil# 0.33 X10^3/uL; Eosinophils% 4.1 % (0-5); Hematocrit 40.1 % (37-47); Lymphocyte # 3.33 X10^3/ul (0.83-4.51); Lymphocyte % 41.5 % (19-41); Mean Corp Hgb Conc 32.4 g/dL (32-36); Mean Corpuscular Hgb 29.6 pg (27.0-32.0); Mean Corpuscular Volume 91.3 fL (81-99); Mean Platelet Vol. 9.4 fl (6.2-12.0); Monocyte# 0.52 X10^3/uL; Monocyte% 6.5 % (0-10); NRBC Flagged by Analyzer 0 % (0-5); Neutrophil # 3.74 X10^3/uL (2.7-7.7); Neutrophil % 46.7 % (47-70); Platelet Count 278 K/mm3 (150-450); RBC Distribution Width CV 12.3 % (11.6-14.6); RBC Distribution Width SD 41.1 fl (35.1-43.9); Red Blood Count 4.39 M/mm3 (4.2-5.4)
[2024-04-17 22:30] LABS: Bacteria RARE /hpf (None Seen); Mucous, Urine 1+ /hpf (<or=2+); Red Blood Cells-Urine 0-5 SEEN /hpf (0-5); White Blood Cells 50-100 SEEN /hpf (0-5)
[2024-04-17 22:31] LABS: Internal QC Validated? YES +Cl - CLEAR BKGD; Pregnancy, Urine Negative Negative
[2024-04-17 22:38] LABS: Anion Gap 5 (5-15); BUN 14 mg/dL (7-18); BUN/Creat Ratio 23.5 RATIO (10-20); Calcium,Total 8.8 mg/dL (8.5-10.1); Chloride 109 mmol/L (98-107); EST Glomerular Filtration Rate 125 mL/min (>60); Est Glom Filt Rate - Afr Amer 151 mL/min (>60); Estimated Creatinine Clearance 98.48 ml/min; Glucose 127 mg/dL (74-106); Potassium 3.3 mmol/L (3.5-5.1); Sodium Level 141 mmol/L (136-145)
[2024-04-17 23:00] VITALS: BP 121/81; PULSE 92; RESP 18; TEMP 36.6; O2SAT 99
--- NOTE | 2024-04-17 23:02 | EDS_ITS ---
HPI History of Present Illness Chief Complaint: Flank Pain Informant: patient and spouse/S.O. Narrative Narrative: Patient is a 28-year-old female with past history of kidney stone. She was seen in February and diagnosed with a large approximate 9 mm right-sided stone. She was followed by urology and had a KUB done just 3 days ago that confirms stone is still in similar position. She states show intermittent pain but is typically manageable with home medication. She woke this evening for work and developed sudden onset right-sided pain without trauma or excessive activity. She tried her home remedies to help control the pain but was unsuccessful and therefore comes to the hospital for evaluation. [facility] Medical History Anemia Bladder infection Bone fracture Breast lump Chronic bronchitis Emotional problems Endometriosis Gallstone Gastrointestinal problem Head ache Kidney infection Kidney stone PCOS (polycystic ovarian syndrome) Vision problem Vitamin deficiency Home Medications ?Medication ?Instructions ?Recorded ?Last Taken ?Type ciprofloxacin HCl 500 mg tablet 500 mg PO BID #14 TABLETS 03/09/24 Unknown Rx ketorolac 10 mg tablet 10 mg PO 4X/DAY PRN pain 5 days 04/17/24 Unknown Rx #20 tabs ondansetron 4 mg disintegrating 4 mg PO TID PRN nausea and 04/17/24 Unknown Rx tablet vomiting #21 tabs oxycodone-acetaminophen 5 mg-325 1 tab PO Q6H PRN pain 3 days #12 04/17/24 Unknown Rx mg tablet (Percocet) tabs tamsulosin 0.4 mg capsule (Flomax) 0.4 mg PO DAILY #14 caps 04/17/24 Unknown Rx Allergy/AdvReac Type Severity Reaction Status Date / Time latex AdvReac Mild rash Verified 04/17/24 21:16 BACTRIM AdvReac Intermediate Itching Uncoded 02/18/24 11:09 Family History (Updated 02/18/24 @ 11:[address] 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 Smoking Status: Never smoker Electronic Cigarette Use: not used alcohol intake: never substance use type: does not use what type of physical activity do you participate in: walking seatbelt use: always do you feel safe at home: Yes ROS ROS ED Constitutional Constitutional ED: Denies chills or fever(s) ENT ENT ED: Denies sore throat Cardiovascular Cardiovascular: Denies chest pain Respiratory/Chest Respiratory/Chest: Denies cough or dyspnea Gastrointestinal Gastrointestinal: Reports abdominal pain, nausea and vomiting; Denies diarrhea Genitourinary Genitourinary ED: Denies dysuria or urinary frequency Musculoskeletal Musculoskeletal: Reports back pain Integumentary Denies rash Neurologic Neurologic: Denies headache(s) Hematologic/Lymphatic Hematologic/Lymphatic: Denies easy bleeding or easy bruising EXAM Physical Exam Const Vital Signs: 04/17/24 21:16 04/17/24 22:15 04/17/24 23:00 Temperature 97.4 F L 98 F 97.9 F Temperature Source Temporal Oral Oral Pulse Rate 105 H 86 92 Respiratory Rate 18 18 18 Blood Pressure 119/58 L 117/77 121/81 H Blood Pressure Mean 78 90 94 Pulse Ox 95 99 99 Oxygen Delivery Method Room Air Room Air Room Air 04/17/24 23:32 Temperature 98 F Temperature Source Pulse Rate 90 Respiratory Rate 16 Blood Pressure 118/72 Blood Pressure Mean 87 Pulse Ox 99 Oxygen Delivery Method Positive well nourished and well developed General Appearance ED: well developed; Negative for pallor HEENT HEENT Narrative: Normocephalic atraumatic Eyes PERRL and EOMs intact bilaterally General Eye ED: Negative for scleral icterus Neck supple Resp normal respiratory effort and clear to auscultation bilaterally Cardio regular rate and regular rhythm GI non-distended and no masses GI Narrative: Abdomen is soft and nondistended with normal active bowel sounds. There is pain on palpation along the right mid to upper lateral abdomen without voluntary guarding or rigidity. No pulsatile mass or fluid wave Auscultation: normoactive bowel sounds Palpation: soft Back/Spine Back/Spine Narrative: Positive right CVA pain noted Extremity normal to inspection Neuro oriented x3, CN's II-XII intact bilaterally and no sensory deficits noted Sensorium / Orientation: alert Motor Exam: strength 5/5 throughout Psych mental status grossly normal Skin no rashes or lesions noted and No no wounds Skin Narrative: No overlying soft tissue changes to suggest trauma or infection General Skin Exam: Negative for jaundice or pallor MDM MDM MDM Narrative Medical decision making narrative: Patient reported sudden onset of right-sided back/abdominal pain has a known history of kidney stone. Differential diagnosis is for UTI versus acute kidney injury versus renal colic. As patient had a CT scan last month and an x-ray just a few days ago I do not feel there is a need for repeat imaging studies. Blood work was obtained which shows normal kidney function no leukocytosis or left shift and no significant electrolyte abnormality. Urine sample also shows no obvious signs of infection. Patient was given IV fluids and Toradol and had improvement of her pain. Therefore at this time as patient does not have urosepsis or TERRA and her pain is controlled there is no need for admission or transfer and she is otherwise safe for discharge History & Record Review Discussion w/independent historian: Patient and Significant other Lab Data Attestation: I reviewed the patient's lab results. Labs: Laboratory Results - last 24 hr 04/17/24 04/17/24 22:10 22:15 WBC 8.0 RBC 4.39 Hgb 13.0 Hct 40.1 MCV 91.3 MCH 29.6 MCHC 32.4 RDW Std Deviation 41.1 RDW Coeff of Darrell 12.3 Plt Count 278 MPV 9.4 Immature Gran % (Auto) 0.200 Neut % (Auto) 46.7 L Lymph % (Auto) 41.5 [place] % (Auto) 6.5 Eos % (Auto) 4.1 Baso % (Auto) 1.0 Absolute Neuts (auto) 3.7 Absolute Lymphs (auto) 3.33 Nucleated RBC % 0 Sodium 141 Potassium 3.3 L Chloride 109 H Carbon Dioxide 27.0 Anion Gap 5 BUN 14 Creatinine 0.60 Estim Creat Clear Calc 98.48 Est GFR (MDRD) Af Amer 151 Est GFR (MDRD) Non-Af 125 BUN/Creatinine Ratio 23.5 H Glucose 127 H Calcium 8.8 Urine Color Yellow Urine Clarity Sl. Cloudy Urine pH 6.0 Ur Specific [place] 1.020 Urine Protein 30 H Urine Glucose (UA) Normal Urine Ketones Negative Urine Occult Blood 50 H Urine Nitrite Negative Urine Bilirubin Negative Urine Urobilinogen Normal Ur Leukocyte Esterase 500 H Urine RBC 0-5 SEEN Urine WBC 50-100 SEEN Ur Squamous Epith Cells 0 SEEN Urine Bacteria RARE Urine Mucus 1+ Urine Test Negative Discharge Plan Triage Chief Complaint: Flank Pain ED Provider: Gene Patton Dx/Rx/DC Orders Clinical Impression: Kidney stone, Renal colic, Nausea and vomiting Instructions: ED Kidney Stone with Pain Prescriptions: New tamsulosin [Flomax] 0.4 mg capsule 0.4 mg PO DAILY Qty: 14 0RF ondansetron 4 mg tablet,disintegrating 4 mg PO TID PRN (Reason: nausea and vomiting) Qty: 21 0RF ketorolac 10 mg tablet 10 mg PO 4X/DAY PRN (Reason: pain) 5 Days Qty: 20 0RF oxycodone-acetaminophen [Percocet] 5-325 mg tablet 1 tab PO Q6H PRN (Reason: pain) 3 Days Qty: 12 0RF No Action ciprofloxacin HCl [ciprofloxacin HCl] 500 mg tablet 500 mg PO BID Qty: 14 0RF Stand Alone Forms: ED Work / School Excuse Primary Care Provider: Lizeth Brandt Referrals: Lizeth Brandt MD [Primary Care Provider] - Kelsey Cortez MD [Med Staff - Active Staff] - Activity Restrictions/Additional Instructions: Please return to the ER if you develop a fever over 100.4 or your pain is not controlled with the prescribed medications Print Language: Occitan Disposition Disposition: Home, Self Care Discharge Date/Time: 04/17/24 23:35
[2024-04-17] MEDS: oxyCODONE 5 MG Tablet 10 MG PO (23:30)
[2024-04-17 23:32] VITALS: BP 118/72; PULSE 90; RESP 16; TEMP 36.6; O2SAT 99
== END 2024-04-17 23:35 | disposition home or self-care (01) ==
PROVIDERS: Physician Assistant; Emergency Provider Emergency Medicine; PCP Internal Medicine; Visit Provider Emergency Medicine
DX: N20.0 Calculus of kidney (principal); R11.2 Nausea with vomiting, unspecified; Z87.442 Personal history of urinary calculi
CPT/HCPCS: 80048; 81001; 81025; 85025; 96361; 96374; 96375; 99284; A4216; J2405

== ENCOUNTER → 2024-06-02 | Outpatient (CLI) | payer MEDICAID, SELFPAY ==
[2024-06-02 09:50] LABS: Absolute Lymphocyte Count 2.51 X10^3/uL (0.83-4.51); Basophil# 0.08 X10^3/uL; Basophil% 1.2 % (0-1); Eosinophil# 0.57 X10^3/uL; Eosinophils% 8.6 % (0-5); Hematocrit 42.8 % (37-47); Hemoglobin 14.1 g/dL (12.0-15.0); Lymphocyte # 2.51 X10^3/ul (0.83-4.51); Mean Corp Hgb Conc 32.9 g/dL (32-36); Mean Corpuscular Hgb 30.5 pg (27.0-32.0); Mean Corpuscular Volume 92.4 fL (81-99); Mean Platelet Vol. 9.4 fl (6.2-12.0); Monocyte# 0.45 X10^3/uL; Monocyte% 6.8 % (0-10); NRBC Flagged by Analyzer 0 % (0-5); Neutrophil # 2.99 X10^3/uL (2.7-7.7); Neutrophil % 45.2 % (47-70); Platelet Count 205 K/mm3 (150-450); RBC Distribution Width CV 12.9 % (11.6-14.6); RBC Distribution Width SD 44.1 fl (35.1-43.9); Red Blood Count 4.63 M/mm3 (4.2-5.4); White Blood Count 6.6 K/mm3 (4.4-11.0)
[2024-06-02 10:17] LABS: Internal QC Validated? YES +Cl - CLEAR BKGD; Pregnancy, Serum, hCG Quali. NEGATIVE Negative
[2024-06-02 10:27] LABS: ALB/GLOB Ratio 1.6 RATIO (0.9-2.4); AST(SGOT) 13 U/L (15-37); Alanine Aminotransfer ALT/SGPT 21 U/L (13-56); Albumin, Serum 4.2 g/dL (3.2-5.0); Alkaline Phosphatase 57 U/L (45-117); Anion Gap 4 (5-15); BUN 12 mg/dL (7-18); BUN/Creat Ratio 22.3 RATIO (10-20); Calcium,Total 8.8 mg/dL (8.5-10.1); Chloride 111 mmol/L (98-107); Creatinine, Serum 0.54 mg/dL (0.55-1.02); EST Glomerular Filtration Rate 140 mL/min (>60); Est Glom Filt Rate - Afr Amer 170 mL/min (>60); Globulin 2.7 g/dL (2.2-4.2); Glucose 93 mg/dL (74-106); Potassium 3.8 mmol/L (3.5-5.1); Protein, Total 6.9 g/dL (6.4-8.2); Sodium Level 141 mmol/L (136-145)
--- NOTE | 2024-06-02 15:42 | PCM.TILTTABL ---
Staff Staff: Tasneem Soto Summary Pre Test Resting HR: 78 Pre Test Resting BP: 100/76 Minimum Test HR: 71 Maximum Test HR: 94 Minimum Test BP: 100/76 Maximum Test BP: 130/99 Reason for Test Termination: Reached Maximum Test Time Physician Tilt Table Report Patient's Physicians Primary Care Physician: Lizeth Brandt Indications/Diagnosis: Syncope. Procedure Comments: The patient was brought to the noninvasive lab in the postabsorptive nonsedated state. Informed consent was obtained. EKG was obtained at rest as well as blood pressures. The resting EKG demonstrated sinus rhythm with a rate of 82 bpm with a right pressure 107/78 mmHg. Patient was then placed in the 70 degree head upright tilt position and observed for 20 minutes. Continuous EKG monitoring and blood pressure monitoring was obtained. Patient maintained sinus rhythm and also had symptoms of feeling warm and cold. Blood pressure has remained fairly stable. There were no significant perturbations in the blood pressure or heart rate noted. The patient was then placed in the recumbent position and recovered. Summary: Negative head upright tilt table test with no significant abnormalities noted.
[2024-06-02 15:45] VITALS: BP 100/76; BP 130/99
== END | disposition home or self-care (01) ==
PROVIDERS: Nurse Practitioner; PCP Internal Medicine; Referring Provider Internal Medicine; Visit Provider Internal Medicine
DX: R42 Dizziness and giddiness (principal)
CPT/HCPCS: 36415; 80053; 84703; 85025; 93660; J7040; A4216

== ENCOUNTER → 2024-06-15 | Outpatient (CLI) | payer MEDICAID, SELFPAY ==
--- NOTE | 2024-06-15 14:27 | BI_ITS ---
MAMMOGRAPHY - BILATERAL DIAGNOSTIC REASON FOR EXAM: Female, 29 years old. Palpable lump in the upper lateral aspect of the left breast. PERTINENT HISTORY: Sister with breast cancer. Mother with breast cancer. TECHNIQUE: Digital bilateral breast lc (3D mammographic acquisition) in the CC and MLO projections. 2-D mediolateral oblique (MLO) and craniocaudad (CC) views of both breasts were obtained. CAD: Full Field Digital Mammography with Computer Added Detection was performed. COMPARISON: None. Baseline examination. FINDINGS: Breast Composition: The breasts are extremely dense, which lowers the sensitivity of mammography. There are no dominant masses or suspicious calcifications. No other significant abnormalities are identified. BI/DIAG MAMM W/CAD, BILAT IMPRESSION: Negative diagnostic mammogram. With the patient''s history of a palpable lump in the upper-outer aspect of the left breast, correlation with ultrasound recommended. ASSESSMENT CATEGORY: BIRADS Category 0: Incomplete. Need additional imaging evaluation. A letter regarding these results will be sent to the patient by the facility within 30 days. Approximately 10% of breast cancers are not detected by mammography. A normal mammogram should not delay biopsy of a clinically suspicious abnormality. Electronically Signed: Domingo Carrillo MD at 15:19 EDT ,
--- NOTE | 2024-06-15 14:27 | US_ITS ---
STUDY: ULTRASOUND BREAST - LEFT REASON FOR EXAM: Female, 29 years old. Palpable lump in the upper-outer quadrant of the left breast. TECHNIQUE: Axial and longitudinal images of the LEFT breast were performed with a high resolution ultrasound transducer. # OF IMAGES: 7 COMPARISON: Comparison is made with prior mammogram done earlier today. FINDINGS: LEFT Breast: The upper outer quadrant of the left breast was examined with ultrasound. There is dense fibroglandular tissue. No sonographic abnormality is seen. US/Breast Limited Unilateral IMPRESSION: No sonographic normality is seen. ASSESSMENT CATEGORY: BIRADS Category 1: Negative. A letter regarding these results will be sent to the patient by the facility within 30 days. Electronically Signed: Domingo Carrillo MD at 15:40 EDT ,
== END | disposition home or self-care (01) ==
LOC: OPBI 14:27
PROVIDERS: PCP Internal Medicine; Referring Provider Nurse Practitioner Women's Health; Visit Provider Nurse Practitioner Women's Health
DX: N63.21 Unspecified lump in the left breast, upper outer quadrant (principal)
CPT/HCPCS: 77062; 76642; 77066; G0279

== ENCOUNTER 2024-06-30 09:57 | Observation (INO) | payer MEDICAID, SELFPAY ==
[2024-06-30] VITALS (8 sets, daily range): BP systolic 102–123; BP diastolic 65–90; PULSE 72–110; RESP 16–20; TEMP 35.9–37.1; O2SAT 98–100; BMI 19.5; BMI 18.8
--- NOTE | 2024-06-30 10:40 | CT_ITS ---
HISTORY: left flank pain. TECHNIQUE: Helically acquired images were obtained of the abdomen and pelvis without oral or IV contrast. A radiation dose optimization technique was used for this scan. 377 images. COMPARISON: 03/09/2024 FINDINGS: LOWER CHEST: Lung bases clear. BOWEL: Bowel nondilated. Appendectomy. No focal pericolonic inflammatory change. PERITONEUM: No significant free fluid. LIVER: Stable 1.7 cm lesion in the right lobe, indeterminate on noncontrast examination. GALLBLADDER/BILIARY TREE: Gallbladder present. SPLEEN/PANCREAS/ADRENAL GLANDS: Nonenlarged. KIDNEYS AND URETERS: 1 mm left lower pole calculi again seen. Mild left hydronephrosis with a 10 mm calculus in the left renal pelvis No right nephrolithiasis or hydronephrosis. VESSELS: No abdominal aortic aneurysm. PELVIC ORGANS: Unremarkable. BONES: Intact. CT/Abdomen/Pelvis without Cont IMPRESSION: Mild left hydronephrosis with a 10 mm calculus in the left renal pelvis. Left nephrolithiasis. Electronically Signed: Nelida Lopez MD at 12:48 EDT ,
--- NOTE | 2024-06-30 10:41 | EX.ED.DYSGE1 ---
HPI History of Present Illness Chief Complaint: Flank Pain Detail of Chief Complaint: Flank pain Informant: patient Narrative Narrative: Patient presents to the emergency department with left-sided flank pain that started 2 months ago. Patient has history of a known 7 mm stone in her left kidney. She was supposed to follow-up with her urologist to have it blasted. Patient states that her urologist then was on vacation for a time. She has significant pain and yesterday vomited several times and again several times today. Rates her pain an 8 out of 10. She has history of kidney stones and history of pyelonephritis. She states she usually does not feel symptoms with UTI. She has had intermittent fevers and chills which is a chronic thing for her. Patient also being evaluated for POTS. She has history of endometriosis and PCOS. [facility] Medical History Vitamin deficiency Vision problem Kidney stone Head ache Gastrointestinal problem Gallstone Emotional problems Chronic bronchitis Breast lump Bone fracture Anemia Bladder infection Endometriosis Kidney infection PCOS (polycystic ovarian syndrome) Home Medications ?Medication ?Instructions ?Recorded ?Last Taken ?Type ciprofloxacin HCl 500 mg tablet 500 mg PO BID #14 TABLETS 03/09/24 Unknown Rx ketorolac 10 mg tablet 10 mg PO 4X/DAY PRN pain 5 days 04/17/24 Unknown Rx #20 tabs ondansetron 4 mg disintegrating 4 mg PO TID PRN nausea and 04/17/24 Unknown Rx tablet vomiting #21 tabs oxycodone-acetaminophen 5 mg-325 1 tab PO Q6H PRN pain 3 days #12 04/17/24 Unknown Rx mg tablet (Percocet) tabs tamsulosin 0.4 mg capsule (Flomax) 0.4 mg PO DAILY #14 caps 04/17/24 Unknown Rx Allergy/AdvReac Type Severity Reaction Status Date / Time latex AdvReac Mild rash Verified 06/30/24 09:59 BACTRIM AdvReac Intermediate Rash Uncoded 06/30/24 09:59 Family History Sister Anxiety Asthma Diabetes Mother Scoliosis Asthma Arthritis Cancer uterus (precancerous) Mental health disorder anxiety/depression/ drug addiction Sister Mental health disorder depression, Bipolar Anxiety Schizophrenia Daughter Thyroid disorder at - resolved Surgical History History of surgical procedure H/O eye surgery History of salpingectomy History of 2 sections Hx of appendectomy Social History household members: significant other and children housing: house current occupational status: employed 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 Smoking Status: Never smoker Electronic Cigarette Use: not used alcohol intake: never substance use type: does not use what type of physical activity do you participate in: walking seatbelt use: always do you feel safe at home: Yes ROS ROS ED Review of Systems ROS Unobtainable: other Constitutional Constitutional ED: Reports lethargy; Denies chills, fever(s), sweats or weight loss Eyes Eyes: Denies blurry vision, change in vision or diplopia ENT ENT ED: Denies rhinorrhea or sore throat Cardiovascular Cardiovascular: Denies chest pain, orthopnea or racing heartbeat Respiratory/Chest Respiratory/Chest: Denies cough, dyspnea, dyspnea on exertion, orthopnea or sputum Gastrointestinal Gastrointestinal: Reports nausea and vomiting; Denies abdominal pain or diarrhea Genitourinary Genitourinary ED: Denies dysuria, hematuria or urinary frequency Musculoskeletal Musculoskeletal: Reports back pain; Denies arthralgias, myalgias or neck pain Integumentary Denies abscess, Abrasions or rash Neurologic Neurologic: Denies headache(s) or weakness Psychiatric Psychiatric: Denies anxiety, depression or suicidal thoughts Endocrine Endocrinology: Denies polydipsia, polyphagia or polyuria Hematologic/Lymphatic Hematologic/Lymphatic: Denies easy bleeding, easy bruising or lymphadenopathy Allergic/Immunologic Allergic/Immunologic ED: Denies mouth swelling, tongue swelling or urticaria EXAM Physical Exam Const Vital Signs: 06/30/24 09:57 06/30/24 11:57 Temperature 96.7 F L Temperature Source Temporal Pulse Rate 81 76 Respiratory Rate 20 H 16 Blood Pressure 116/83 H 112/88 H Blood Pressure Mean 94 96 Pulse Ox 100 98 Oxygen Delivery Method Room Air Room Air Positive well nourished and well developed General Appearance ED: well developed and NAD HEENT Reports TM's clear and moist mucous membranes normocephalic and atraumatic; Negative for trauma or tenderness Tympanic Membrane ED: Yes TM's clear Eyes PERRL and EOMs intact bilaterally General Eye ED: Negative for pale conjunctiva or scleral icterus Neck no lymphadenopathy, supple and no JVD General: Negative for tenderness Chest Wall inspection of chest normal and palpation of chest normal Chest: Negative for tenderness Resp normal respiratory effort and clear to auscultation bilaterally Effort and Inspection: Negative for respiratory distress or pain with movement Auscultation: Negative for rhonchi, wheezes or diminished lung sounds Cardio regular rate, regular rhythm, S1 normal heart sound, S2 normal heart sound and no murmurs Peripheral Pulses: pulses 2+ throughout GI normal to inspection, nondistended, normoactive bowel sounds, soft to palpation, non-tender, non-distended and no masses Back/Spine no thoracic nor lumbar tenderness Back/Spine Narrative: CVA tenderness on the left Extremity normal to inspection General Extremety ED: Negative for edema General Extremity: Negative for edema Neuro oriented x3, CN's II-XII intact bilaterally, no sensory deficits noted and gait normal Sensorium / Orientation: awake, alert, oriented to person, oriented to place and oriented to time Motor Exam: strength 5/5 throughout and strength abnormal Psych mental status grossly normal Skin no rashes or lesions noted and no wounds MDM MDM MDM Narrative Medical decision making narrative: Patient presents with severe pain left flank with vomiting. History of kidney stones and history of UTIs. IV line established. She was medicated with hydromorphone as well as Toradol and Zofran. CBC with differential obtained showed a white count 11.8 with hemoglobin 14.7 and platelet count 245. Chemistries unremarkable. BUN 13 creatinine 0.52. Urinalysis was positive for infection with 500 leukocyte esterase and greater than 100 WBCs and +4 bacteria. Urine culture sent. Patient started on Rocephin 1 g IV. Patient started developing more discomfort. Discussed case with urology Dr. Cortez who will admit patient. Lab Data Attestation: I reviewed the patient's lab results. Labs: Laboratory Results - last 24 hr 06/30/24 06/30/24 10:10 11:30 WBC 11.8 H RBC 4.86 Hgb 14.7 Hct 44.8 MCV 92.2 MCH 30.2 MCHC 32.8 RDW Std Deviation 43.8 RDW Coeff of Darrell 12.9 Plt Count 245 MPV 10.0 Immature Gran % (Auto) 0.600 Neut % (Auto) 72.7 H Lymph % (Auto) 18.5 L [place] % (Auto) 6.2 Eos % (Auto) 1.4 Baso % (Auto) 0.6 Absolute Neuts (auto) 8.6 H Absolute Lymphs (auto) 2.18 Nucleated RBC % 0 Sodium 140 Potassium 3.5 Chloride 109 H Carbon Dioxide 28.0 Anion Gap 3 L BUN 13 Creatinine 0.52 L Estim Creat Clear Calc 108.54 Est GFR (MDRD) Af Amer 177 Est GFR (MDRD) Non-Af 146 BUN/Creatinine Ratio 25.0 H Glucose 92 Calcium 9.5 Urine Color Yellow Urine Clarity Cloudy Urine pH 8.0 Ur Specific [place] 1.015 Urine Protein 30 H Urine Glucose (UA) Normal Urine Ketones Negative Urine Occult Blood 25 H Urine Nitrite Negative Urine Bilirubin Negative Urine Urobilinogen Normal Ur Leukocyte Esterase 500 H Urine RBC 25-50 SEEN Urine WBC >100 SEEN Ur Squamous Epith Cells 5-10 SEEN Urine Bacteria 4+ Urine Mucus 1+ Radiography Diagnostic Testing: Clinical Impression(s) from Imaging Studies Abdomen/Pelvis CT 06/30/24 10:40 IMPRESSION: Mild left hydronephrosis with a 10 mm calculus in the left renal pelvis. Left nephrolithiasis. Electronically Signed: Nelida Lopez MD at 12:48 EDT , Discharge Plan Triage Chief Complaint: Flank Pain ED Provider: Angelica Lopez Dx/Rx/DC Orders Clinical Impression: Pyelonephritis, Left renal stone Prescriptions: No Action ciprofloxacin HCl [ciprofloxacin HCl] 500 mg tablet 500 mg PO BID Qty: 14 0RF tamsulosin [Flomax] 0.4 mg capsule 0.4 mg PO DAILY Qty: 14 0RF ondansetron 4 mg tablet,disintegrating 4 mg PO TID PRN (Reason: nausea and vomiting) Qty: 21 0RF ketorolac 10 mg tablet 10 mg PO 4X/DAY PRN (Reason: pain) 5 Days Qty: 20 0RF oxycodone-acetaminophen [Percocet] 5-325 mg tablet 1 tab PO Q6H PRN (Reason: pain) 3 Days Qty: 12 0RF Primary Care Provider: Lizeth Brandt Referrals: Lizeth Brandt MD [Primary Care Provider] - Print Language: Mauritian Disposition Disposition: Acute Care Hospital [facility]
[2024-06-30 10:51] LABS: Absolute Lymphocyte Count 2.18 X10^3/uL (0.83-4.51); Absolute Neutrophil Count 8.6 X10^3/uL (2.0-7.7); Basophil# 0.07 X10^3/uL; Basophil% 0.6 % (0-1); Eosinophil# 0.17 X10^3/uL; Eosinophils% 1.4 % (0-5); Hematocrit 44.8 % (37-47); Hemoglobin 14.7 g/dL (12.0-15.0); Lymphocyte # 2.18 X10^3/ul (0.83-4.51); Lymphocyte % 18.5 % (19-41); Mean Corp Hgb Conc 32.8 g/dL (32-36); Mean Corpuscular Hgb 30.2 pg (27.0-32.0); Mean Corpuscular Volume 92.2 fL (81-99); Monocyte# 0.73 X10^3/uL; Monocyte% 6.2 % (0-10); NRBC Flagged by Analyzer 0 % (0-5); Neutrophil # 8.57 X10^3/uL (2.7-7.7); Neutrophil % 72.7 % (47-70); Platelet Count 245 K/mm3 (150-450); RBC Distribution Width CV 12.9 % (11.6-14.6); RBC Distribution Width SD 43.8 fl (35.1-43.9); Red Blood Count 4.86 M/mm3 (4.2-5.4); White Blood Count 11.8 K/mm3 (4.4-11.0)
[2024-06-30] MEDS: 0.9% Normal Saline (1000mL) 1,000 ML 150 ML IV (10:51)
[2024-06-30] MEDS: Ketorolac 15 MG/ML Vial IV (10:52)
[2024-06-30] MEDS: Ondansetron 4 MG/2 ML Vial IV ×2 (10:52→19:40)
[2024-06-30] MEDS: HYDROmorphone 1 MG/ML Syringe IV (10:52)
[2024-06-30 11:01] LABS: Anion Gap 3 (5-15); BUN 13 mg/dL (7-18); Calcium,Total 9.5 mg/dL (8.5-10.1); Chloride 109 mmol/L (98-107); Creatinine, Serum 0.52 mg/dL (0.55-1.02); EST Glomerular Filtration Rate 146 mL/min (>60); Est Glom Filt Rate - Afr Amer 177 mL/min (>60); Estimated Creatinine Clearance 108.54 ml/min; Glucose 92 mg/dL (74-106); Potassium 3.5 mmol/L (3.5-5.1); Sodium Level 140 mmol/L (136-145)
[2024-06-30 11:38] LABS: Color, Urine Yellow (Yellow); Glucose, Dipstick Normal (Normal); Ketone-Dipstick Negative (Negative); Leukocyte Esterase-Dipstick 500 /ul (Negative); Nitrite-Dipstick Negative (Negative); Occult Blood-Urine 25 /ul (Negative); Protein-Dipstick 30 mg/dl (Negative); Specific Gravity, Urine 1.015 (1.002-1.030); Urine Bilirubin Dipstick Negative (Negative); Urine Clarity Cloudy (Clear); Urine Urobilinogen Normal (Normal)
[2024-06-30 11:48] LABS: Bacteria 4+ /hpf (None Seen); Mucous, Urine 1+ /hpf (<or=2+); Red Blood Cells-Urine 25-50 SEEN /hpf (0-5); Squamous Epithelial Cells - UA 5-10 SEEN /hpf (5-10); White Blood Cells >100 SEEN /hpf (0-5)
[2024-06-30] MEDS: Ceftriaxone 1 GM/50 ML BAG IV (12:44)
[2024-06-30] MEDS: Ketorolac 15 MG/ML Vial IM (16:58)
[2024-06-30] MEDS: 0.9% Saline Lock 10 ML Syringe IV ×2 (16:58→19:40)
[2024-06-30] MEDS: Lactated Ringers 1,000 ML 125 ML IV (17:03)
[2024-06-30] MEDS: oxyCODONE 5 MG Tablet 10 MG PO (17:46)
[2024-06-30 19:07] LABS: Internal QC Validated? YES +Cl - CLEAR BKGD; Pregnancy, Urine Negative Negative; Record Kit Lot#,Urine Preg 772476
[2024-06-30] MEDS: Cefazolin 1 GM/50 ML BAG IV (21:03)
[2024-07-01] VITALS (11 sets, daily range): BP systolic 99–124; BP diastolic 58–76; PULSE 70–100; RESP 16–18; TEMP 36.6–36.8; O2SAT 97–100; BMI 18.8
[2024-07-01] MEDS: Lactated Ringers 1,000 ML 125 ML IV ×2 (01:34→17:19)
[2024-07-01] MEDS: 0.9% Saline Lock 10 ML Syringe IV ×3 (01:38→17:17)
[2024-07-01] MEDS: Ketorolac 15 MG/ML Vial IM (01:38)
[2024-07-01] MEDS: Cefazolin 1 GM/50 ML BAG IV ×2 (05:17→17:12)
[2024-07-01] MEDS: Lactated Ringers 1,000 ML 15 ML IV (07:49)
--- NOTE | 2024-07-01 07:49 | HP.PCM_ITS ---
HPI - General General Date of Admission: 06/30/24 Date of Service: 07/01/24 Chief Complaint: Left flank pain HPI Narrative SOFIA KING, is a 29 F who presented to the emergency room yesterday with uncontrolled left flank pain, nausea and vomiting. She has had a known left renal stone for a couple of months. It began to bother her more than it was, and she presented to the emergency room. She denied fever, chills at home. No recent hematuria. No dysuria. [facility] Medical History Vitamin deficiency Vision problem Kidney stone Head ache Gastrointestinal problem Gallstone Emotional problems Chronic bronchitis Breast lump Bone fracture Anemia Bladder infection Endometriosis Kidney infection PCOS (polycystic ovarian syndrome) Home Medications ?Medication ?Instructions ?Recorded ?Last Taken ?Type NK 06/30/24 Unknown History Allergy/AdvReac Type Severity Reaction Status Date / Time latex AdvReac Mild rash Verified 06/30/24 09:59 BACTRIM AdvReac Intermediate Rash Uncoded 06/30/24 09:59 Family History Sister Anxiety Asthma Diabetes Mother Scoliosis Asthma Arthritis Cancer uterus (precancerous) Mental health disorder anxiety/depression/ drug addiction Sister Mental health disorder depression, Bipolar Anxiety Schizophrenia Daughter Thyroid disorder at - resolved Surgical History History of surgical procedure H/O eye surgery History of salpingectomy History of 2 sections Hx of appendectomy Social History household members: significant other and children housing: house current occupational status: employed 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 Smoking Status: Never smoker Electronic Cigarette Use: not used alcohol intake: never substance use type: does not use what type of physical activity do you participate in: walking seatbelt use: always do you feel safe at home: Yes ROS Constitutional Constitutional: Denies chills or fever(s) Eyes Eyes: Reports systems reviewed and no addt'l complaints, except as documented ENT HEENT: Reports systems reviewed and no addt'l complaints, except as documented Cardiovascular Cardiovascular: Reports systems reviewed and no addt'l complaints, except as documented Respiratory/Chest Respiratory/Chest: Reports systems reviewed and no addt'l complaints, except as documented Gastrointestinal Gastrointestinal: Reports abdominal pain Genitourinary Genitourinary: Reports flank pain Musculoskeletal Musculoskeletal: Reports systems reviewed and no addt'l complaints, except as documented Integumentary Integumentary: Reports systems reviewed and no addt'l complaints, except as documented Neurologic Neurologic: Reports systems reviewed and no addt'l complaints, except as documented Psychiatric Psychiatric: Reports systems reviewed and no addt'l complaints, except as documented Endocrine Endocrinology: Reports systems reviewed and no addt'l complaints, except as documented Hematologic/Lymphatic Hematologic/Lymphatic: Reports systems reviewed and no addt'l complaints, except as documented Allergic/Immunologic Allergic/Immunologic: Reports systems reviewed and no addt'l complaints, except as documented Vital Signs Vital Signs Vital Signs: 06/30/24 09:57 06/30/24 11:57 06/30/24 13:00 Temperature 96.7 F L Temperature Source Temporal Pulse Rate 81 76 82 Respiratory Rate 20 H 16 18 Respiratory Effort Respiratory Depth Respiratory Pattern Blood Pressure 116/83 H 112/88 H 120/78 Blood Pressure Mean 94 96 92 Blood Pressure Source Blood Pressure Position Blood Pressure Location Pulse Ox 100 98 100 Oxygen Delivery Method Room Air Room Air Room Air 06/30/24 13:25 06/30/24 14:00 06/30/24 15:00 Temperature 98.1 F Temperature Source Pulse Rate 86 Respiratory Rate 18 Respiratory Effort Respiratory Depth Respiratory Pattern Blood Pressure 104/69 102/65 Blood Pressure Mean 80 78 Blood Pressure Source Blood Pressure Position Blood Pressure Location Pulse Ox 100 99 99 Oxygen Delivery Method 06/30/24 16:53 06/30/24 21:01 06/30/24 21:09 Temperature 98.8 F 98.4 F Temperature Source Oral Oral Pulse Rate 110 H 72 Respiratory Rate 20 H 16 Respiratory Effort Normal Respiratory Depth Normal Respiratory Pattern Normal Blood Pressure 123/90 H 122/74 H Blood Pressure Mean 101 90 Blood Pressure Source Monitor Monitor Blood Pressure Position Semi-Fowlers Semi-Fowlers Blood Pressure Location Left Arm Left Arm Pulse Ox 99 99 Oxygen Delivery Method Room Air Room Air Room Air 07/01/24 01:35 07/01/24 05:15 07/01/24 07:09 Temperature 98 F 98.3 F 98.2 F Temperature Source Oral Oral Oral Pulse Rate 71 88 100 Respiratory Rate 16 16 18 Respiratory Effort Respiratory Depth Respiratory Pattern Blood Pressure 105/67 110/71 124/67 H Blood Pressure Mean 79 84 86 Blood Pressure Source Monitor Monitor Monitor Blood Pressure Position Semi-Fowlers Semi-Fowlers Semi-Fowlers Blood Pressure Location Left Arm Left Arm Left Arm Pulse Ox 100 99 99 Oxygen Delivery Method Room Air Room Air Room Air 07/01/24 07:35 Temperature Temperature Source Pulse Rate Respiratory Rate Respiratory Effort Respiratory Depth Respiratory Pattern Blood Pressure Blood Pressure Mean Blood Pressure Source Blood Pressure Position Blood Pressure Location Pulse Ox Oxygen Delivery Method Room Air Weight Weight: 43.6 kg Body Mass Index (BMI) 18.8 Physical Exam Const alert, oriented x3 and no apparent distress HEENT normocephalic, head/scalp atraumatic, hearing grossly normal bilaterally, external ears normal, external nose normal and moist oral mucous membranes Eyes General Eye: normal appearance of both eyes Neck supple General: normal visual inspection and trachea midline Lymph Lymphatic: no lymphedema noted Chest inspection of chest normal Resp normal respiratory effort, normal air movement and no retractions Cardio regular rate and regular rhythm GI soft to palpation and non-distended Bladder / Kidney Exam: CVA tenderness left Extremity normal to inspection Skin no rashes or lesions noted, no jaundice, no petechiae and no mottling Neuro oriented x3, CN's II-XII intact bilaterally and moves all extremities Psych mental status grossly normal, thought process normal and cooperative Results Lab / Micro Data 06/30/24 10:10 06/30/24 10:10 Labs: Laboratory Results - last 24 hr 06/30/24 10:10: WBC 11.8 H, RBC 4.86, Hgb 14.7, Hct 44.8, MCV 92.2, MCH 30.2, MCHC 32.8, RDW Std Deviation 43.8, RDW Coeff of Darrell 12.9, Plt Count 245, MPV 10.0, Immature Gran % (Auto) 0.600, Neut % (Auto) 72.7 H, Lymph % (Auto) 18.5 L, Glascock % (Auto) 6.2, Eos % (Auto) 1.4, Baso % (Auto) 0.6, Absolute Neuts (auto) 8.6 H, Absolute Lymphs (auto) 2.18, Nucleated RBC % 0, Sodium 140, Potassium 3.5, Chloride 109 H, Carbon Dioxide 28.0, Anion Gap 3 L, BUN 13, Creatinine 0.52 L, Estim Creat Clear Calc 108.54, Est GFR (MDRD) Af Amer 177, Est GFR (MDRD) Non-Af 146, BUN/Creatinine Ratio 25.0 H, Glucose 92, Calcium 9.5 06/30/24 11:30: Urine Color Yellow, Urine Clarity Cloudy, Urine pH 8.0, Ur Specific Bill[place] 1.015, Urine Protein 30 H, Urine Glucose (UA) Normal, Urine Ketones Negative, Urine Occult Blood 25 H, Urine Nitrite Negative, Urine Bilirubin Negative, Urine Urobilinogen Normal, Ur Leukocyte Esterase 500 H, Urine RBC 25-50 SEEN, Urine WBC >100 SEEN, Ur Squamous Epith Cells 5-10 SEEN, Urine Bacteria 4+, Urine Mucus 1+, Urine Test Negative Imaging Radiology Impression Abdomen/Pelvis CT 06/30/24 10:40 IMPRESSION: Mild left hydronephrosis with a 10 mm calculus in the left renal pelvis. Left nephrolithiasis. Electronically Signed: Nelida Lopez MD at 12:48 EDT , Assessment & Plan Assessment/Plan (1) Left renal stone: (2) Pyelonephritis: PLAN: Plan Continue antibiotics and supportive care To the operating room this morning for cystoscopy and left ureteral stent insertion. Informed consent was obtained after discussing the risks, benefits and alternatives. Questions were answered and she agreed to proceed. Plan for definitive surgical intervention for her stone in approximately 2 to 3 weeks Await culture results
--- NOTE | 2024-07-01 07:50 | NURSING ---
Pt is off the floor in surgery.
--- NOTE | 2024-07-01 07:54 | OP.PCM_ITS ---
Report of Operation Date of Procedure: 07/01/24 Pre-Operative Diagnosis: Left renal calculus Post-Operative Diagnosis: Same Surgery/Procedure Performed:: Cystoscopy with left ureteral stent insertion Surgeon: Kelsey Cortez Type of Anesthesia: MAC Specimen's removed: None Description of Procedure: The patient is a 29-year-old female who has had a left renal stone known for a few months and it has now dropped into the area of the UPJ causing obstruction and pain. She presents for cystoscopy with left ureteral stent insertion secondary to concomitant urinary tract infection. Informed consent was obtained. The patient was taken to the operating room and placed on the operating room table. Anesthesia monitored the head, neck, airway, IV access and vital signs throughout the case. Once anesthesia was appropriate ministered, she was placed into dorsolithotomy position was prepped and draped in usual sterile fashion. The cystoscope was inserted through the urethra under direct visualization into the urinary bladder. The bladder mucosa was visualized in its entirety finding no evidence of mass or foreign body. The left ureteral orifice was gently cannulated with a 0.035 Glidewire which then advanced into the renal pelvis as seen on fluoroscopy. A 6 Colombian 20 cm JJ stent was then placed over the Glidewire with good positioning in the renal pelvis and the urinary bladder. Her bladder was then emptied and the cystoscope was removed. She was awakened and taken to the recovery room in good condition. There were no complications during this procedure. Grafts/Implants Used: 6 Colombian by 20 cm JJ stent Complications None Admit VTE Documentation VTE Present on Admission: Yes VTE Mechan Device Prophylaxis: SCD's VTE Pharm Prophylaxis ordered?: No Reason prophylaxis not ordered:: Treatment Not Indicated
--- NOTE | 2024-07-01 08:05 | PCM.PRE.AN2 ---
ASA Classification* ASA Classification ASA Classification: 2 and E Assessment & Plan Anesthesia* Anesthesia Assessment Anesthesia Assessment: Discussed sedation and/or anesthesia options, risks, benefits, and alternatives with patient/parents/legal guardian/POA. Questions invited. The patient/parents/legal guardian/POA seems to understand and agrees to proceed with anesthesia plan. Reviewed the physical assessment, medical history, allergy history and patient home medications list prior to surgery/procedure/anesthetic and documented any changes. Performed airway and anesthesia risk assessments. Anesthesia Type Anesthesia Type: MAC (see written pre anesthesia record for full assessment) Anesthesia Focused Assessment* Temperature: 98.2 F Pulse Rate: 100 Blood Pressure: 124/67 Respiratory Rate: 18 Pulse Ox: 99 Airway Assessment Mouth opens: >3 cm Mallampati Score: II Focused Labs Anesthesia Preop lab: CBC WBC 11.8 K/mm3 (4.4-11.0) H 06/30/24 10:10 RBC 4.86 M/mm3 (4.2-5.4) 06/30/24 10:10 Hgb 14.7 g/dL (12.0-15.0) 06/30/24 10:10 Hct 44.8 % (37-47) 06/30/24 10:10 Plt Count 245 K/mm3 (150-450) 06/30/24 10:10 CHEMISTRY Potassium 3.5 mmol/L (3.5-5.1) 06/30/24 10:10 Sodium 140 mmol/L (136-145) 06/30/24 10:10 BUN 13 mg/dL (7-18) 06/30/24 10:10 Creatinine 0.52 mg/dL (0.55-1.02) L 06/30/24 10:10 Glucose 92 mg/dL (74-106) 06/30/24 10:10 COAG Urine Test Negative Negative 06/30/24 11:30 Tst Clinic Negative 01/17/24 11:18 Pre-Assessment Diagnosis/Proposed Procedure Planned Operative Procedure(s): cyto stent Anesthesia History 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 When Was Last Pacemaker Check QUESTION #4 FULL TEXT: You/Your Family Experience fever (hyperthermia) with Anesthesia Last Oral Intake Last Oral intake: Last Oral Intake NPO since 00:00 07/01/24 07:09 Meds taken in AM with sips of No 07/01/24 07:09 water? 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 Female HX of Motion Sickness HX of N/V After Surgery Non-Smoker Duration of Surgery greater than 60 minutes Number of Risk Factors PONV Score Height & Weight Height & Weight: Anesthesia: Height & Weight Height 5 ft 06/30/24 16:47 Weight: 43.6 kg 06/30/24 16:47 Body Mass Index (BMI) 18.8 07/01/24 07:09 Respiratory Assessment Respiratory Assessment - rural mail contractor: Respiratory Tract Infection Hx - rural mail contractor Hx Respiratory Tract Infection No 06/30/24 20:12 STOP Sleep Apnea STOP Sleep Apnea - rural mail contractor: STOP Sleep Apnea - rural mail contractor Hx Hypertension No 06/30/24 16:47 Hx Sleep Apnea No 06/30/24 16:47 CPAP BIPAP Do you snore loudly (louder No 06/30/24 16:47 than talking or can be heard Do you often feel tired/ No 06/30/24 16:47 fatigued/ sleepy during daytime? Has anyone observed you stop No 06/30/24 16:47 breathing during sleep? STOP Results Negative 06/30/24 16:47 QUESTION #5 FULL TEXT : Do you snore loudly (louder than talking or can be heard through closed doors)? 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 Specify any problems Hx of Preganancy in last 3 No 06/30/24 16:47 Months Nurse Filling Out Transfusion KBORNSTIN 06/30/24 16:47 & Questions: Date: 06/30/24 06/30/24 16:47 Time: 17:06 06/30/24 16:47 Patient unable to answer at this time (ie. confused, unrespo /Reproduction History /Reproductive History - rural mail contractor: /Reproductive Hx- rural mail contractor Hx Now No 06/30/24 20:12 Gestational Age (in weeks): EDC: Hx Hx Para Hx Section SAB No 06/30/24 16:47 Active Medications Active Medications: Current Medications Generic Name Dose Route Start Last Admin Trade Name Freq PRN Reason Stop Dose Admin Lactated Ringer's 1,000 mls @ 125 mls/hr 06/30/24 16:30 07/01/24 07:50 IV 0 mls/hr .Q8H DAVID Infusion Cefazolin Sodium 1 gm in 50 mls @ 100 mls/hr 06/30/24 22:00 07/01/24 05:47 IV Infused Q8 DAVID Infusion Sodium Chloride 250 mls @ 15 mls/hr 06/30/24 16:47 IV .[id number] PRN Additional IVPB Infusion Sodium Chloride 250 mls @ 15 mls/hr 06/30/24 16:47 IV .[id number] PRN Saline Flush Lactated Ringer's 1,000 mls @ 15 mls/hr 07/01/24 07:45 07/01/24 07:49 IV 15 mls/hr .Q48H DAVID Administration Ketorolac Tromethamine 15 mg 06/30/24 16:24 07/01/24 01:38 Ketorolac 15 Mg/Ml Vial IM 15 mg Q8H PRN PRN Administration Pain 1-10 or Fever Morphine Sulfate 2 - 4 mg 06/30/24 16:18 Morphine 2 Mg/Ml Syringe IV Q3H PRN PRN Pain Score 6-10 Ondansetron HCl 4 mg 06/30/24 16:18 06/30/24 19:40 Ondansetron 4 Mg/2 Ml Vial IV 4 mg Q8H PRN PRN Administration NAUSEA/VOMITING Oxycodone HCl 10 mg 06/30/24 16:18 06/30/24 17:46 Oxycodone 5 Mg Tablet PO 10 mg Q4H PRN PRN Administration Pain Score 4-10 Sodium Chloride 10 - 40 ml 06/30/24 16:47 07/01/24 01:38 0.9% Saline Lock 10 Ml Syringe IV 10 ml UD PRN Administration SALINE FLUSH PFSH Medical History Vitamin deficiency Vision problem Kidney stone Head ache Gastrointestinal problem Gallstone Emotional problems Chronic bronchitis Breast lump Bone fracture Anemia Bladder infection Endometriosis Kidney infection PCOS (polycystic ovarian syndrome) Home Medications ?Medication ?Instructions ?Recorded ?Last Taken ?Type NK 06/30/24 Unknown History Allergy/AdvReac Type Severity Reaction Status Date / Time latex AdvReac Mild rash Verified 06/30/24 09:59 BACTRIM AdvReac Intermediate Rash Uncoded 06/30/24 09:59 Family History Sister Anxiety Asthma Diabetes Mother Scoliosis Asthma Arthritis Cancer uterus (precancerous) Mental health disorder anxiety/depression/ drug addiction Sister Mental health disorder depression, Bipolar Anxiety Schizophrenia Daughter Thyroid disorder at - resolved Surgical History History of surgical procedure H/O eye surgery History of salpingectomy History of 2 sections Hx of appendectomy Social History household members: significant other and children housing: house current occupational status: employed 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
--- NOTE | 2024-07-01 08:41 | DCINST_ITS ---
Discharge Instructions Diet Discharge Diet: No restrictions Activity Discharge Activity: Return to Normal Activity Dressing / Incision Call your doctor if you observe: Fever of 101 or Higher, Inability to urinate and Inability to have a bowel movement Follow Up Care Please Follow Up With: Kelsey Cortez MD When: The office will call her to make follow up arrangements for stone management. Test Results: Test results from this visit will be discussed in further detail at your follow- up appointment, if applicable. Discharge Plan Admission Admit Date/Time: 06/30/24 16:20 Attending Provider: Kelsey Cortez Primary Care Provider: Lizeth Brandt Discharge Orders/Prescriptions Prescriptions: New oxycodone-acetaminophen [Percocet] 5-325 mg tablet 1 tab PO Q8H PRN (Reason: pain) 3 Days Qty: 10 0RF cephalexin 500 mg capsule 500 mg PO 3XD 5 Days Qty: 15 0RF phenazopyridine [Pyridium] 200 mg tablet 200 mg PO TID PRN PRN (Reason: Bladder Spasms) 7 Days Qty: 30 0RF ondansetron 4 mg tablet,disintegrating 4 mg PO Q8H PRN (Reason: nausea and vomiting) Qty: 10 0RF Referrals / Follow Up: Lizeth Brandt MD [Primary Care Provider] - Disposition Disposition (needs filled in before D/C Order can be placed): Home, Self Care
--- NOTE | 2024-07-01 09:02 | PCM.POST.ANE ---
Anesthesia: Postop Eval I Current Vital Signs Temperature: 98.1 F Pulse Rate: 83 Blood Pressure: 99/61 Respiratory Rate: 16 Pulse Ox: 100 Oxygen Delivery Method: Room Air Assessment Airway patent: Yes Spontaneous unlabored respirations: Yes Mental status: Awake and Calm nausea: No Vomiting: No Anesthesia Complication: No Fluid Hydration Crystalloid volume administer (ml): 500 Total IV fluid infused: 500 Progress Note Anesthesia document: Postop Eval 1 completed: Yes
--- NOTE | 2024-07-01 09:19 | PCM.POSTANE2 ---
Anesthesia Postop Eval I Sum Postop Eval Completion status Anesthesia document: Postop Eval 1 completed: Yes Anesthesia Postop Eval I Summary Anesthesia Postop Eval I Summary: Anesthesia Postop Eval I: Assessment Summary Airway patent Yes 07/01/24 09:03 Spontaneous unlabored Yes 07/01/24 09:03 respirations Mental status Awake,Calm 07/01/24 09:03 nausea No 07/01/24 09:03 Vomiting No 07/01/24 09:03 Anesthesia Postop Eval I: Fluid Summary Crystalloid volume administer 500 07/01/24 09:03 (ml) Colloids volume administered ( ml) Blood Product volume administered (ml) Total IV fluid infused 500 07/01/24 09:03 Anesthesia Postop Eval I: Summary Notes Anesthesia Complication No 07/01/24 09:03 Anesthesia Complication Comment: Post-operative progress note Anesthesia: Postop Eval II Evaluation Mental status: Awake Pain Level: 0 nausea: No Vomiting: No
[2024-07-01] MEDS: Morphine 2 MG/ML Syringe IV (12:53)
[2024-07-01] MEDS: oxyCODONE 5 MG Tablet 10 MG PO (12:54)
[2024-07-01] MEDS: Ondansetron 4 MG/2 ML Vial IV (14:12)
[2024-07-01] MEDS: Famotidine 20 MG Tablet PO (20:27)
== END 2024-07-01 20:28 | disposition home or self-care (01) ==
LOC: ED 13:18 → MS3 16:39
PROVIDERS: Admitting Provider Urology; Emergency Provider Emergency Medicine; PCP Internal Medicine; Visit Provider Urology
PROC: (CPT 52332; principal; 2024-07-01 07:50)
DX: N13.6 Pyonephrosis (principal)
CPT/HCPCS: 52332; 00910; 74176; 76000; 80048; 81001; 81025; 85025; 87077; 87086; 87088; 87186; 96361; 96365; 96366; 96375; 96376; 97802; 99221; 99284; J7030; J7120; A4216; G0378; J2405

== ENCOUNTER 2024-07-11 18:01 | Observation (INO) | payer MEDICAID, SELFPAY ==
[2024-07-11] VITALS (8 sets, daily range): BP systolic 94–124; BP diastolic 56–70; PULSE 76–124; RESP 16–27; TEMP 36.8–37.7; O2SAT 96–99; BMI 19.8; BMI 19.9
--- NOTE | 2024-07-11 18:13 | EDS_ITS ---
HPI HPI - Female History of Present Illness Chief Complaint: Flank Pain PFSH PFSH Medical History Vitamin deficiency Vision problem Kidney stone Head ache Gastrointestinal problem Gallstone Emotional problems Chronic bronchitis Breast lump Bone fracture Anemia Bladder infection Endometriosis Kidney infection PCOS (polycystic ovarian syndrome) Home Medications ?Medication ?Instructions ?Recorded ?Last Taken ?Type cephalexin 500 mg capsule 500 mg PO 3XD post-operative 5 07/01/24 Unknown Rx days #15 CAPSULES ondansetron 4 mg disintegrating 4 mg PO Q8H PRN nausea and 07/01/24 Unknown Rx tablet vomiting #10 tabs oxycodone-acetaminophen 5 mg-325 1 tab PO Q8H PRN pain 3 days #10 07/01/24 Unknown Rx mg tablet (Percocet) tabs phenazopyridine 200 mg tablet 200 mg PO TID PRN PRN Bladder 07/01/24 Unknown Rx (Pyridium) Spasms 7 days #30 tabs Allergy/AdvReac Type Severity Reaction Status Date / Time sulfamethoxazole (From Allergy Rash Verified 07/11/24 18:02 Bactrim) trimethoprim (From Bactrim) Allergy Rash Verified 07/11/24 18:02 latex AdvReac Mild rash Verified 06/30/24 09:59 Family History Sister Anxiety Asthma Diabetes Mother Scoliosis Asthma Arthritis Cancer uterus (precancerous) Mental health disorder anxiety/depression/ drug addiction Sister Mental health disorder depression, Bipolar Anxiety Schizophrenia Daughter Thyroid disorder at - resolved Surgical History History of surgical procedure H/O eye surgery History of salpingectomy History of 2 sections Hx of appendectomy Social History household members: significant other and children housing: house current occupational status: employed 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 Smoking Status: Never smoker Electronic Cigarette Use: not used alcohol intake: never substance use type: does not use what type of physical activity do you participate in: walking seatbelt use: always do you feel safe at home: Yes EXAM Physical Exam Const Vital Signs: 07/11/24 18:02 Temperature 99.3 F H Temperature Source Temporal Pulse Rate 124 H Respiratory Rate 22 H Blood Pressure 124/70 H Blood Pressure Mean 88 Pulse Ox 97 Oxygen Delivery Method Room Air [facility] Narrative Medical decision making narrative: HISTORY OF PRESENT ILLNESS: 29-year-old female presents with flank pain. No she had stents placed by Dr. Donnelly for a 2 mm stone. She notes today she had nausea vomiting and intractable pain. REVIEW OF SYSTEMS: Pertinent positives: Flank pain, nausea vomiting Pertinent negatives: Chest pain, shortness of breath, syncope PHYSICAL EXAM: Nursing triage notes reviewed, Vital signs reviewed Constitutional: please see mdm HENT: MMM Eyes: Pupils equal round and reactive to light, Extraocular muscles intact Neck: No stridor, no JVD, full neck ROM Lungs: Clear to auscultation, No wheezing or rales. No increased work of breathing, no conversational dyspnea, no accessory muscle use, no nasal flaring. No respiratory distress noted Heart: Regular rate and rhythm, No murmurs, No rubs and No gallops, 2+ distal p ulses (radial, femoral, posterior tibial) in all extremities Abdomen: Soft, lower abdominal TTP, but no rigidity, rebound or guarding, no obvious peritoneal signs, no palpable pulsatile abdominal masses, no auscultated abdominal bruit : Positive CVA tenderness bilaterally, Extremities: No edema Neuro: No focal neurological deficits, cranial nerves II through XII intact, 5/5 strength in all extremities. Intact sensation to light touch in all extremities, 2+ reflexes bilateral patella tendons. Normal gait. No ataxia. Skin: No rash or lesions noted MEDICAL DECISION MAKING: Chief Complaint: Flank pain, nausea vomiting External records reviewed: Reviewed operative report from 07/01/2024. Underwent intervention for left-sided kidney stone by Dr. Cortez Factors affecting care: History of pyelonephritis, nephrolithiasis Social determinants of health: none History obtained from others: the patient's fianc? Consults: urology (Dr Cortez). [facility] Narrative: The patient was initially tachycardic rate 124, she was tachypneic at a rate of 22, she is borderline febrile with a temperature nine 9.3 with saturating well on room air. Exam consistent with likely intra-abdominal infectious issue including pyelonephritis, infected kidney stone or intra-abdominal abscess given recent stent placement. I obtained a broad lab and imaging workup to further elucidate the etiology of patient complaint. I gave the patient 1 L normal saline, Tylenol for fever, Zofran for nausea. Patient states she did 2 plications I treated empirically with Toradol despite not having test back as well as morphine. ALL IMAGES (IF OBTAINED) HAVE BEEN PERSONALLY REVIEWED AND INTERPRETED BY MYSELF. EKG with sinus tachycardia rate of 130, normal axis, normal intervals, no obvious STEMI, CBC with leukocytosis suggestive of systemic inflammation, no anemia or thrombocytopenia The patient and/or family, caregivers express understanding. The patient and/or family, caregivers agrees with the plan. Shared decision making: I will have a discussion with the patient and or visitors regarding risk/benefits of further testing or admission. They will be made aware of of the risk/benefits inherent in this decision they will be given the opportunity to voice understanding. Total critical care time today provided was at least 0 [] minutes. This excludes separately billable procedures. Critical care time (if documented) is secondary to the patient having high probability of clinically significant/life threatening deterioration in the patient's condition which required my urgent intervention. Impression: 1. Acute abdominal pain 2. Nausea and vomiting 3. Dispo: [] This note was generated with [employer] dictation software. It may contain incorrect words, spelling, and punctuation that were not noted in review of the chart prior to signing. Discharge Plan Triage Chief Complaint: Flank Pain ED Provider: Tom Dubose Dx/Rx/DC Orders Prescriptions: No Action oxycodone-acetaminophen [Percocet] 5-325 mg tablet 1 tab PO Q8H PRN (Reason: pain) 3 Days Qty: 10 0RF cephalexin 500 mg capsule 500 mg PO 3XD 5 Days Qty: 15 0RF phenazopyridine [Pyridium] 200 mg tablet 200 mg PO TID PRN PRN (Reason: Bladder Spasms) 7 Days Qty: 30 0RF ondansetron 4 mg tablet,disintegrating 4 mg PO Q8H PRN (Reason: nausea and vomiting) Qty: 10 0RF Primary Care Provider: Lizeth Brandt Referrals: Lizeth Brandt MD [Primary Care Provider] - Print Language: [place] Citizen
--- NOTE | 2024-07-11 18:15 | CT_ITS ---
We are attempting to reach an attending provider to discuss findings. An addendum with communication details will be sent when the communication is complete. EXAM: CT ABDOMEN AND PELVIS WITH INTRAVENOUS CONTRAST CLINICAL INDICATION: left leg pain, recent surgery TECHNIQUE: Helically acquired images were obtained of the abdomen and pelvis with intravenous contrast. This CT exam was performed using one or more of the following dose reduction techniques: automated exposure control, adjustment of the mA and/or kV according to patient size, and/or use of iterative reconstruction technique. CONTRAST: IV 100mL Isovue-370 RADIATION DOSE: CTDIvol = 5.17 mGy, DLP = 366.84 mGy-cm COMPARISON: June 30, 2024 November 09, 2023, retrospectively there was reportedly stable 1.3 cm hypodensity in the right lobe of liver but the liver was reported to be unremarkable on unenhanced CT March 09, 2023, but the lesion was described on unenhanced CT report July 20, 2023, it was favored to be benign hemangioma. FINDINGS: LOWER THORAX: Unremarkable. Lung bases are clear. No cardiomegaly. No significant pericardial effusion. ABDOMEN: LIVER: There is peripheral globular enhancement of the posterior margin of the liver lesion, best seen on axial and coronal images, likely hemangioma, it is 1.6 cm x 1.5 cm overall size. GALLBLADDER AND BILE DUCTS: Unremarkable. No calcified gallstones. No gallbladder distention or wall edema. No intra- or extrahepatic biliary ductal dilation. PANCREAS: Unremarkable. No focal cystic or solid mass. SPLEEN: Unremarkable. Normal size without focal cystic or solid mass. ADRENALS: Unremarkable. No nodules. KIDNEYS AND URETERS: No robert left hydronephrosis. Left renal pelvis is 9 mm with mild wall thickening and enhancement, it was 1.3 cm. The kidneys enhance fairly symmetrically with the exception of a zone of subtle decreased enhancement at the upper pole of the left kidney, likely due to a small zone of pyelonephritis measuring about 1.7 cm x 1.6 cm. Also very subtle similar decreased cortical enhancement of roughly 1.4 cm in the posterior lower left kidney. . The large previously seen stone left renal pelvis is now in lower pole infundibulum and there is a well positioned left ureteral stent proximal end in the left renal pelvis, distal end in the bladder. There is a small simple-appearing cyst at the upper pole of the right kidney, 1 cm. And tiny cortical 6 mm cyst at the upper medial right kidney. STOMACH AND BOWEL: Mild fluid and gas in the stomach. Mildly prominent fluid and gas in distal small bowel loops. Large amount of stool in most of the proximal half of the colon, prominent gas in the distal colon and rectum. No stomach or bowel distention. No focal inflammatory change. PELVIS: APPENDIX: There is postoperative change of the medial tip of the cecum consistent with appendectomy. BLADDER: See above. REPRODUCTIVE: Unremarkable as visualized. No mass. ABDOMEN and PELVIS: INTRAPERITONEAL SPACE: Unremarkable. No ascites or other fluid collection. No free air. BONES/JOINTS: Unremarkable. No suspicious lytic or blastic abnormality. SOFT TISSUES: Unremarkable. No discrete abdominal or pelvic wall hernia. VASCULATURE: Prominent intrapelvic vessels in the left pelvis and prominent enhanced left gonadal vein, cannot exclude some pelvic congestion in the appropriate clinical setting. Abdominal aorta is non-dilated. LYMPH NODES: Unremarkable. No enlarged lymph nodes. TUBES, LINES AND DEVICES: There is contrast in the renal pelvis bilaterally on delayed phase exam, and throughout the right ureter and the left ureteral stent. CT/Abdomen/Pelvis W IV Cont ONLY IMPRESSION: 1. Suspicion of multiple small foci of pyelonephritis involving the left kidney, inhomogeneous cortical enhancement at the upper and lower pole cortex. Mild wall thickening and enhancement of the left renal pelvis around the ureteral stent also suggests mild inflammation or infection. 2. Well-positioned ureteral stent. Previously seen large 9 mm stone in the left renal pelvis is now in left lower pole infundibulum without intrarenal obstruction. 3. Prominent stool in much of the proximal half of the colon. 4. Prominent left pelvic veins and enhanced gonadal vein, suspicion of pelvic congestion syndrome in the appropriate clinical setting. 5. The common femoral veins are slightly enhanced but symmetric, no evidence of DVT. 6. Findings consistent with stable hepatic hemangioma. Electronically Signed: Aziza Velásquez MD at 20:37 EDT ,
--- NOTE | 2024-07-11 18:15 | EKG12_ITS ---
Test Reason : FLANK PAIN Blood Pressure : / mmHG Vent. Rate : 130 BPM Atrial Rate : 130 BPM P-R Int : 130 ms QRS Dur : 084 ms QT Int : 286 ms P-R-T Axes : 079 043 064 degrees QTc Int : 420 ms Sinus tachycardia Right atrial enlargement Nonspecific ST abnormality Abnormal ECG Confirmed by Lucas Bergeron ([id number]), visual effects editor ELIANE BUCKNER ([id number]) on 07/13/2024 10:25:20 AM Referred By: Confirmed By:Lucas Bergeron
--- NOTE | 2024-07-11 18:18 | NURSING ---
NO OLD EKGS
[2024-07-11] MEDS: Acetaminophen 500 MG Tablet 1000 MG PO (18:30)
[2024-07-11] MEDS: 0.9% Normal Saline (1000mL) 1,000 ML 1000 ML IV ×2 (18:30→20:14)
[2024-07-11 18:52] LABS: Hematocrit 43.8 % (37-47); Hemoglobin 14.5 g/dL (12.0-15.0); Mean Corp Hgb Conc 33.1 g/dL (32-36); Mean Corpuscular Hgb 30.2 pg (27.0-32.0); Mean Corpuscular Volume 91.3 fL (81-99); Mean Platelet Vol. 9.1 fl (6.2-12.0); Platelet Count 257 K/mm3 (150-450); RBC Distribution Width CV 12.4 % (11.6-14.6); RBC Distribution Width SD 41.4 fl (35.1-43.9); White Blood Count 15.5 K/mm3 (4.4-11.0)
[2024-07-11] MEDS: Ketorolac 15 MG/ML Vial IV (19:04)
[2024-07-11] MEDS: Morphine 2 MG/ML Syringe IV (19:04)
[2024-07-11 19:09] LABS: Internal QC Validated? YES +Cl - CLEAR BKGD; Pregnancy, Urine Negative Negative; Record Kit Lot#,Urine Preg 772476
[2024-07-11 19:16] LABS: Anion Gap 9 (5-15); BUN 14 mg/dL (7-18); BUN/Creat Ratio 23.8 RATIO (10-20); Calcium,Total 9.4 mg/dL (8.5-10.1); Chloride 107 mmol/L (98-107); Creatinine, Serum 0.59 mg/dL (0.55-1.02); EST Glomerular Filtration Rate 127 mL/min (>60); Est Glom Filt Rate - Afr Amer 153 mL/min (>60); Estimated Creatinine Clearance 99.24 ml/min; Glucose 119 mg/dL (74-106); Potassium 3.8 mmol/L (3.5-5.1); Sodium Level 139 mmol/L (136-145)
[2024-07-11 19:23] LABS: Color, Urine Yellow (Yellow); Glucose, Dipstick Normal (Normal); Ketone-Dipstick 50 mg/dl (Negative); Leukocyte Esterase-Dipstick 500 /ul (Negative); Mucous, Urine 0 SEEN /hpf (<or=2+); Nitrite-Dipstick Positive (Negative); Occult Blood-Urine 250 /ul (Negative); Protein-Dipstick 100 mg/dl (Negative); Squamous Epithelial Cells - UA 0 SEEN /hpf (5-10); Urine Bilirubin Dipstick Negative (Negative); Urine Clarity Cloudy (Clear); Urine Urobilinogen Normal (Normal)
[2024-07-11 19:41] LABS: Bacteria 3+ /hpf (None Seen); Red Blood Cells-Urine > 100 SEEN /hpf (0-5); White Blood Cells >100 SEEN /hpf (0-5)
[2024-07-11 19:42] LABS: Lactic Acid 1.3 mmol/L (0.4-1.9)
[2024-07-11] MEDS: Piperacil/Tazobactam 3.375 GM in 0.9% Normal Saline (50mL MB+) 50 ML IV (19:45)
[2024-07-11] MEDS: Vancomycin HCl 750 MG in 0.9% Normal Saline (250mL Bag) 250 ML 250 MG IV (20:47)
[2024-07-11] MEDS: DiphenhydrAMINE 50 MG/ML Syringe IV (22:14)
[2024-07-11] MEDS: Morphine 4 MG/ML Syringe IV (22:32)
--- NOTE | 2024-07-11 23:03 | ED.RN ---
RN walked into room, pt itching whole body and covered in hives. MD notified, obtained order for Benadryl. After administration, pt stated she felt much better and itching was slowly starting to disappear. Vancomycin added to pt allergy list.
[2024-07-12 00:10] VITALS: BP 99/69; PULSE 86; RESP 16; TEMP 36.8; O2SAT 99
[2024-07-12] MEDS: Lactated Ringers 1,000 ML 125 ML IV ×3 (00:54→16:46)
[2024-07-12 05:00] VITALS: BP 116/80; PULSE 92; RESP 18; TEMP 37.5; O2SAT 97
[2024-07-12] MEDS: Ketorolac 15 MG/ML Vial IV (05:13)
[2024-07-12] MEDS: Piperacil/Tazobactam 3.375 GM in 0.9% Normal Saline (50mL MB+) 50 ML IV ×3 (05:39→21:49)
[2024-07-12 06:22] LABS: Absolute Lymphocyte Count 0.69 X10^3/uL (0.83-4.51); Absolute Neutrophil Count 11.9 X10^3/uL (2.0-7.7); Basophil# 0.03 X10^3/uL; Basophil% 0.2 % (0-1); Hematocrit 34.5 % (37-47); Hemoglobin 11.4 g/dL (12.0-15.0); Lymphocyte # 0.69 X10^3/ul (0.83-4.51); Mean Corpuscular Hgb 30.3 pg (27.0-32.0); Mean Corpuscular Volume 91.8 fL (81-99); Mean Platelet Vol. 9.6 fl (6.2-12.0); Monocyte# 1.13 X10^3/uL; Monocyte% 8.2 % (0-10); NRBC Flagged by Analyzer 0 % (0-5); Neutrophil # 11.85 X10^3/uL (2.7-7.7); Neutrophil % 86.2 % (47-70); Platelet Count 198 K/mm3 (150-450); RBC Distribution Width CV 12.6 % (11.6-14.6); Red Blood Count 3.76 M/mm3 (4.2-5.4); White Blood Count 13.8 K/mm3 (4.4-11.0)
[2024-07-12 07:10] VITALS: O2SAT 97
[2024-07-12 08:17] VITALS: BP 119/79; PULSE 104; RESP 16; TEMP 37.4; O2SAT 96
[2024-07-12] MEDS: proMETHazine 25 MG/ML Syringe IM (08:23)
[2024-07-12] MEDS: Morphine 2 MG/ML Syringe IV ×2 (10:43→20:22)
[2024-07-12] MEDS: 0.9% Saline Lock 10 ML Syringe IV (10:44)
--- NOTE | 2024-07-12 11:31 | PCM.HP.STD ---
HPI - General General Date of Admission: 07/12/24 Date of Service: 07/12/24 Chief Complaint: Flank pain and fever HPI Narrative SOFIA KING, is a 29 F who presented to the emergency room yesterday evening after developing uncontrolled left flank pain with fever, chills, nausea. She underwent a left renal extracorporal shockwave lithotripsy on . She was doing well until yesterday. She is feeling a little better today, but the nausea remains uncontrolled. [facility] Medical History Vitamin deficiency Vision problem Kidney stone Head ache Gastrointestinal problem Gallstone Emotional problems Chronic bronchitis Breast lump Bone fracture Anemia Bladder infection Endometriosis Kidney infection PCOS (polycystic ovarian syndrome) Home Medications ?Medication ?Instructions ?Recorded ?Last Taken ?Type phenazopyridine 200 mg tablet 200 mg PO TID PRN PRN Bladder 07/01/24 Unknown Rx (Pyridium) Spasms 7 days #30 tabs Allergy/AdvReac Type Severity Reaction Status Date / Time vancomycin Allergy Intermediate Itching Verified 07/11/24 22:15 sulfamethoxazole (From Allergy Rash Verified 07/11/24 18:02 Bactrim) trimethoprim (From Bactrim) Allergy Rash Verified 07/11/24 18:02 latex AdvReac Mild rash Verified 06/30/24 09:59 Family History Sister Anxiety Asthma Diabetes Mother Scoliosis Asthma Arthritis Cancer uterus (precancerous) Mental health disorder anxiety/depression/ drug addiction Sister Mental health disorder depression, Bipolar Anxiety Schizophrenia Daughter Thyroid disorder at - resolved Surgical History History of surgical procedure H/O eye surgery History of salpingectomy History of 2 sections Hx of appendectomy Social History household members: significant other and children housing: house current occupational status: employed 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 Smoking Status: Never smoker Electronic Cigarette Use: not used alcohol intake: never substance use type: does not use what type of physical activity do you participate in: walking seatbelt use: always do you feel safe at home: Yes ROS Constitutional Constitutional: Reports chills and fever(s) Eyes Eyes: Reports systems reviewed and no addt'l complaints, except as documented ENT HEENT: Reports systems reviewed and no addt'l complaints, except as documented Cardiovascular Cardiovascular: Reports systems reviewed and no addt'l complaints, except as documented Respiratory/Chest Respiratory/Chest: Reports systems reviewed and no addt'l complaints, except as documented Gastrointestinal Gastrointestinal: Reports abdominal pain and nausea Genitourinary Genitourinary: Reports abdominal discomfort, flank pain, low back pain and urinary urgency Musculoskeletal Musculoskeletal: Reports systems reviewed and no addt'l complaints, except as documented Integumentary Integumentary: Reports systems reviewed and no addt'l complaints, except as documented Neurologic Neurologic: Reports systems reviewed and no addt'l complaints, except as documented Psychiatric Psychiatric: Reports systems reviewed and no addt'l complaints, except as documented Endocrine Endocrinology: Reports systems reviewed and no addt'l complaints, except as documented Hematologic/Lymphatic Hematologic/Lymphatic: Reports systems reviewed and no addt'l complaints, except as documented Vital Signs Vital Signs Vital Signs: 07/11/24 18:02 07/11/24 19:06 07/11/24 20:00 Temperature 99.3 F H 100 F H 100 F H Temperature Source Temporal Oral Oral Pulse Rate 124 H 100 107 H Respiratory Rate 22 H 19 H 22 H Respiratory Effort Respiratory Depth Respiratory Pattern Blood Pressure 124/70 H 105/70 94/56 L Blood Pressure Mean 88 81 68 Blood Pressure Source Blood Pressure Position Blood Pressure Location Pulse Ox 97 98 96 Oxygen Delivery Method Room Air Room Air Room Air 07/11/24 21:00 07/11/24 22:00 07/11/24 23:00 Temperature 100 F H 98.3 F 98.8 F Temperature Source Oral Oral Oral Pulse Rate 93 99 76 Respiratory Rate 22 H 27 H 19 H Respiratory Effort Respiratory Depth Respiratory Pattern Blood Pressure 103/61 108/68 95/62 Blood Pressure Mean 75 81 73 Blood Pressure Source Blood Pressure Position Blood Pressure Location Pulse Ox 96 98 96 Oxygen Delivery Method Room Air Room Air Room Air 07/11/24 23:03 07/11/24 23:45 07/12/24 00:10 Temperature 98.8 F 98.2 F 98.2 F Temperature Source Oral Oral Pulse Rate 79 86 86 Respiratory Rate 20 H 16 16 Respiratory Effort Respiratory Depth Respiratory Pattern Blood Pressure 95/62 99/69 99/69 Blood Pressure Mean 73 79 79 Blood Pressure Source Monitor Blood Pressure Position Semi-Fowlers Blood Pressure Location Left Arm Pulse Ox 96 99 99 Oxygen Delivery Method Room Air Room Air 07/12/24 00:14 07/12/24 05:00 07/12/24 07:10 Temperature 99.5 F H Temperature Source Oral Pulse Rate 92 Respiratory Rate 18 Respiratory Effort Normal Non-Labored Respiratory Depth Normal Respiratory Pattern Normal Blood Pressure 116/80 Blood Pressure Mean 92 Blood Pressure Source Monitor Blood Pressure Position Semi-Fowlers Blood Pressure Location Right Arm Pulse Ox 97 97 Oxygen Delivery Method Room Air Room Air Room Air 07/12/24 08:17 Temperature 99.3 F H Temperature Source Oral Pulse Rate 104 H Respiratory Rate 16 Respiratory Effort Respiratory Depth Respiratory Pattern Blood Pressure 119/79 Blood Pressure Mean 92 Blood Pressure Source Monitor Blood Pressure Position Semi-Fowlers Blood Pressure Location Left Arm Pulse Ox 96 Oxygen Delivery Method Room Air Weight Weight: 46 kg Body Mass Index (BMI) 19.9 Physical Exam Const alert and oriented x3 General Appearance: cooperative and comfortable HEENT normocephalic, head/scalp atraumatic, hearing grossly normal bilaterally, external ears normal and external nose normal Eyes General Eye: normal appearance of both eyes Neck supple General: normal visual inspection Lymph Lymphatic: no lymphedema noted Chest inspection of chest normal Chest: symmetrical chest wall rise Resp normal respiratory effort, normal air movement and no retractions Cardio regular rate GI soft to palpation, non-tender and non-distended Bladder / Kidney Exam: CVA tenderness left Back/Spine General Back: CVA tenderness left Extremity normal to inspection Skin no rashes or lesions noted, no jaundice, no petechiae and no mottling Neuro oriented x3, CN's II-XII intact bilaterally and moves all extremities Psych mental status grossly normal and thought process normal Results Lab / Micro Data 07/12/24 04:45 07/11/24 18:30 Labs: Laboratory Results - last 24 hr 07/11/24 18:30: WBC 15.5 H, RBC 4.80, Hgb 14.5, Hct 43.8, MCV 91.3, MCH 30.2, MCHC 33.1, RDW Std Deviation 41.4, RDW Coeff of Darrell 12.4, Plt Count 257, MPV 9.1, Sodium 139, Potassium 3.8, Chloride 107, Carbon Dioxide 23.0, Anion Gap 9, BUN 14, Creatinine 0.59, Estim Creat Clear Calc 99.24, Est GFR (MDRD) Af Amer 153, Est GFR (MDRD) Non-Af 127, BUN/Creatinine Ratio 23.8 H, Glucose 119 H, Lactic Acid 1.3, Calcium 9.4 07/11/24 18:42: Urine Color Yellow, Urine Clarity Cloudy, Urine pH 6.0, Ur Specific [place] 1.020, Urine Protein 100 H, Urine Glucose (UA) Normal, Urine Ketones 50 H, Urine Occult Blood 250 H, Urine Nitrite Positive H, Urine Bilirubin Negative, Urine Urobilinogen Normal, Ur Leukocyte Esterase 500 H, Urine RBC > 100 SEEN, Urine WBC >100 SEEN, Ur Squamous Epith Cells 0 SEEN, Urine Bacteria 3+, Urine Mucus 0 SEEN, Urine Test Negative 07/12/24 04:45: WBC 13.8 H, RBC 3.76 L, Hgb 11.4 L, Hct 34.5 L, MCV 91.8, MCH 30.3, MCHC 33.0, RDW Std Deviation 42.0, RDW Coeff of Darrell 12.6, Plt Count 198, MPV 9.6, Immature Gran % (Auto) 0.400, Neut % (Auto) 86.2 H, Lymph % (Auto) 5.0 L, [place] % (Auto) 8.2, Eos % (Auto) 0.0, Baso % (Auto) 0.2, Absolute Neuts (auto) 11.9 H, Absolute Lymphs (auto) 0.69 L, Nucleated RBC % 0 Imaging Radiology Impression Abdomen/Pelvis CT 07/11/24 18:15 IMPRESSION: 1. Suspicion of multiple small foci of pyelonephritis involving the left kidney, inhomogeneous cortical enhancement at the upper and lower pole cortex. Mild wall thickening and enhancement of the left renal pelvis around the ureteral stent also suggests mild inflammation or infection. 2. Well-positioned ureteral stent. Previously seen large 9 mm stone in the left renal pelvis is now in left lower pole infundibulum without intrarenal obstruction. 3. Prominent stool in much of the proximal half of the colon. 4. Prominent left pelvic veins and enhanced gonadal vein, suspicion of pelvic congestion syndrome in the appropriate clinical setting. 5. The common femoral veins are slightly enhanced but symmetric, no evidence of DVT. 6. Findings consistent with stable hepatic hemangioma. Electronically Signed: Aziza Velásquez MD at 20:37 EDT , ADDENDUM: 07/11/242054 IMPRESSION: 1. Suspicion of multiple small foci of pyelonephritis involving the left kidney, inhomogeneous cortical enhancement at the upper and lower pole cortex. Mild wall thickening and enhancement of the left renal pelvis around the ureteral stent also suggests mild inflammation or infection. 2. Well-positioned ureteral stent. Previously seen large 9 mm stone in the left renal pelvis is now in left lower pole infundibulum without intrarenal obstruction. 3. Prominent stool in much of the proximal half of the colon. 4. Prominent left pelvic veins and enhanced gonadal vein, suspicion of pelvic congestion syndrome in the appropriate clinical setting. 5. The common femoral veins are slightly enhanced but symmetric, no evidence of DVT. 6. Findings consistent with stable hepatic hemangioma. N.B. : The above Results were Read Back by Aziza Velásquez MD to Tom Dubose DO, and understanding confirmed on 07/11/2024 20:48:13 (ET). Electronically Signed: Aziza Velásquez MD at 20:37 EDT , Assessment & Plan Assessment/Plan (1) Pyelonephritis: (2) Left renal stone: PLAN: Plan Await urine and blood culture results Continue antibiotic coverage with broad-spectrum antibiotics Continue supportive care change meds for nausea management
[2024-07-12 14:09] VITALS: BP 117/78; PULSE 100; RESP 16; TEMP 39.2; O2SAT 97
[2024-07-12] MEDS: Acetaminophen 325 MG Tablet 650 MG PO (16:46)
[2024-07-12 20:11] VITALS: BP 99/71; PULSE 82; RESP 18; TEMP 36.8; O2SAT 98
[2024-07-13] MEDS: Lactated Ringers 1,000 ML 125 ML IV ×3 (01:18→17:07)
[2024-07-13 03:00] VITALS: BP 101/67; PULSE 87; RESP 16; TEMP 37.6; O2SAT 97
[2024-07-13] MEDS: Piperacil/Tazobactam 3.375 GM in 0.9% Normal Saline (50mL MB+) 50 ML IV ×2 (05:20→14:11)
[2024-07-13 07:21] VITALS: O2SAT 95
[2024-07-13 07:42] VITALS: BP 93/61; PULSE 100; RESP 16; TEMP 37.6; O2SAT 95
[2024-07-13] MEDS: Acetaminophen 325 MG Tablet 650 MG PO (09:24)
[2024-07-13] MEDS: oxyCODONE 5 MG Tablet PO (09:24)
[2024-07-13 14:10] VITALS: BP 97/58; PULSE 86; RESP 16; TEMP 36.7; O2SAT 98
--- NOTE | 2024-07-13 19:51 | PCM.DC.BLA ---
Discharge Summary Date of Admission: 07/12/24 Date of Discharge: 07/13/24 Summary: Tasneem presented to the emergency room with uncontrolled flank pain, nausea and vomiting and fever to 102 at home. She was admitted and given supportive care with intravenous fluid administration, pain medications and nausea control. She was evaluated with a CT scan confirming the diagnosis of acute pyelonephritis. Cultures were sent for further evaluation and she was followed with laboratory studies and physical examination. She improved and was able to be discharged home following culture results. Physical Exam Const alert, oriented x3 and no apparent distress General Appearance: cooperative and comfortable HEENT normocephalic, head/scalp atraumatic, hearing grossly normal bilaterally, external ears normal, external nose normal and moist oral mucous membranes Eyes General Eye: normal appearance of both eyes Neck supple General: normal visual inspection Lymph Lymphatic: no lymphedema noted Chest inspection of chest normal Resp normal respiratory effort, normal air movement and no retractions Cardio regular rate GI soft to palpation, non-tender and non-distended no CVA tenderness Back/Spine no CVA tenderness Extremity normal to inspection Skin no rashes or lesions noted, no jaundice and no petechiae Neuro oriented x3, CN's II-XII intact bilaterally and moves all extremities Psych mental status grossly normal and thought process normal Meaningful Use Info Meaningful Use Meaningful Use Diagnoses (Choose all that apply): None applicable Ischemic Stroke Statin Dosing Therapy Reference: STATIN DOSE THERAPY REFERENCE: * Patients > 75 years receive moderate or high dose statin therapy. * Patients 75 years or YOUNGER should receive HIGH intensity statin dose unless contraindicated. You will be required to document reason for non-treatment if statin daily dose does not meet guidelines. HIGH DOSE STATIN THERAPY DAILY Atorvastatin > than or = to 40 mg Rosuvastatin > than or = to 20 mg Amlodipine + Atorvastatin > than or = to 2.5/40 mg Ezetimibe + Simvastatin 10/80 mg Simvastatin 80mg Discharge Plan Admission Admit Date/Time: 07/12/24 00:13 Attending Provider: Kelsey Cortez Primary Care Provider: Lizeth Brandt Discharge Orders/Prescriptions Prescriptions: New ciprofloxacin HCl 500 mg tablet 500 mg PO BID Qty: 16 0RF oxycodone-acetaminophen [Percocet] 5-325 mg tablet 1 tab PO Q8H PRN (Reason: pain) 3 Days Qty: 9 0RF Continued phenazopyridine [Pyridium] 200 mg tablet 200 mg PO TID PRN PRN (Reason: Bladder Spasms) 7 Days Qty: 30 0RF Referrals / Follow Up: Lizeth Brandt MD [Primary Care Provider] - Disposition Disposition (needs filled in before D/C Order can be placed): Home, Self Care
--- NOTE | 2024-07-13 19:56 | PCM.PN.GU ---
Subjective Subjective Feeling much better. No pain, nausea or vomiting. She would love to go home. Objective Data Objective Data Vital Signs: Vital Signs Temp Pulse Resp BP Pulse Ox O2 Del Method 98.1 F 86 16 97/58 L 98 Room Air 07/13/24 14:10 07/13/24 14:10 07/13/24 14:10 07/13/24 14:10 07/13/24 14:10 07/13/24 14:10 Oxygen Delivery Method Room Air Weight: 46 kg Body Mass Index (BMI) 19.9 Intake & Output: Intake and Output for Last 24 Hours 07/11/24 07/12/24 07/13/24 23:59 23:59 23:59 Intake Total 2315 / 2315 2683.33 / 2683.33 3114.58 / 3114.58 Output Total 500 / 500 1200 / 1200 Balance 2315 / 2315 2183.33 / 2183.33 1914.58 / 1914.58 Lab / Micro Data 07/12/24 04:45 07/11/24 18:30 Micro: Microbiology 07/11/24 18:42 Urine, Clean Catch Urine Culture - Final Enterobacter cloacae complex Physical Exam Const alert, oriented x3 and no apparent distress General Appearance: cooperative and comfortable HEENT normocephalic, head/scalp atraumatic, hearing grossly normal bilaterally, external ears normal and external nose normal Eyes General Eye: normal appearance of both eyes Neck supple Lymph Lymphatic: no lymphedema noted Chest inspection of chest normal Resp normal respiratory effort, normal air movement and no retractions Cardio regular rate GI soft to palpation, non-tender and non-distended no CVA tenderness Back/Spine no CVA tenderness Extremity normal to inspection Skin no rashes or lesions noted, no jaundice, no petechiae and no mottling Neuro oriented x3, CN's II-XII intact bilaterally and moves all extremities Psych mental status grossly normal, thought process normal and cooperative Assessment & Plan Assessment/Plan (1) Left renal stone: (2) Pyelonephritis: PLAN: Plan home on culture appropriate antibiotics continue supportive care follow up in the office with KUB for stent removal, appointment made.
[2024-07-13 20:21] VITALS: BP 116/78; PULSE 102; RESP 16; TEMP 37.4; O2SAT 98
== END 2024-07-13 20:34 | disposition home or self-care (01) ==
LOC: ED 19:05 → MS3 07-12 00:23
PROVIDERS: Admitting Provider Urology; Emergency Provider Emergency Medicine; PCP Internal Medicine; Visit Provider Urology
DX: N10 Acute pyelonephritis (principal); N20.0 Calculus of kidney
CPT/HCPCS: 36415; 74177; 80048; 81001; 81025; 83605; 85025; 85027; 87040; 87077; 87086; 87088; 87186; 93005; 94668; 96361; 96365; 96366; 96367; 96372; 96375; 96376; 99221; 99285; J7030; J7050; J7120; Q9967; A4216; G0378

== ENCOUNTER 2024-07-27 09:18 | Emergency (ER) | payer MEDICAID, SELFPAY ==
[2024-07-27 09:18] VITALS: BP 114/82; PULSE 68; RESP 16; TEMP 36.6; O2SAT 98; BMI 19.5
[2024-07-27 09:43] LABS: Mucous, Urine 0 SEEN /hpf (<or=2+)
[2024-07-27 09:46] LABS: Absolute Lymphocyte Count 1.88 X10^3/uL (0.83-4.51); Absolute Neutrophil Count 4.1 X10^3/uL (2.0-7.7); Basophil# 0.08 X10^3/uL; Basophil% 1.2 % (0-1); Eosinophil# 0.18 X10^3/uL; Eosinophils% 2.7 % (0-5); Hematocrit 44.4 % (37-47); Hemoglobin 14.2 g/dL (12.0-15.0); Lymphocyte # 1.88 X10^3/ul (0.83-4.51); Lymphocyte % 27.9 % (19-41); Mean Corpuscular Hgb 29.7 pg (27.0-32.0); Mean Corpuscular Volume 92.9 fL (81-99); Mean Platelet Vol. 9.4 fl (6.2-12.0); Monocyte# 0.44 X10^3/uL; Monocyte% 6.5 % (0-10); NRBC Flagged by Analyzer 0 % (0-5); Neutrophil # 4.14 X10^3/uL (2.7-7.7); Neutrophil % 61.4 % (47-70); Platelet Count 276 K/mm3 (150-450); RBC Distribution Width CV 12.9 % (11.6-14.6); Red Blood Count 4.78 M/mm3 (4.2-5.4); White Blood Count 6.7 K/mm3 (4.4-11.0)
[2024-07-27 09:47] LABS: Color, Urine Yellow (Yellow); Glucose, Dipstick Normal (Normal); Ketone-Dipstick Negative (Negative); Leukocyte Esterase-Dipstick 500 /ul (Negative); Nitrite-Dipstick Negative (Negative); Occult Blood-Urine 250 /ul (Negative); Protein-Dipstick 30 mg/dl (Negative); Specific Gravity, Urine 1.015 (1.002-1.030); Urine Bilirubin Dipstick Negative (Negative); Urine Clarity Cloudy (Clear); Urine Urobilinogen Normal (Normal)
[2024-07-27 09:49] LABS: Internal QC Validated? YES +Cl - CLEAR BKGD; Pregnancy, Urine Negative Negative
[2024-07-27 09:58] LABS: Red Blood Cells-Urine > 100 SEEN /hpf (0-5)
--- NOTE | 2024-07-27 09:58 | US_ITS ---
STUDY: RENAL ULTRASOUND - COMPLETE REASON FOR EXAM: Female, 29 years old. left flank pain TECHNIQUE: Ultrasound evaluation of the kidneys was performed with real-time and static boggs-scale imaging. COMPARISON: CT 07/11/2024 FINDINGS: RIGHT KIDNEY: Normal location of the right kidney, which is normal in size. The right kidney measures 10.8 cm. There is a normal cortex of the right kidney. The renal cortex measures 1.2 cm. 1 cm cyst in the upper pole right kidney. There are no right renal calculi. There is no right hydronephrosis. DISTAL RIGHT URETER: There is non-visualization of the distal right ureter. There is no demonstrated right ureterovesical junction calculus. There is a visualized right ureteral jet. LEFT KIDNEY: Normal location of the left kidney, which is normal in size. The left kidney measures 10.1 cm. There is a normal cortex of the left kidney. The renal cortex measures 1.5 cm. There is no left renal mass or cyst. 10 mm echogenic focus with posterior shadowing in the lower pole of the left kidney worrisome for a nonobstructing stone. There is mild hydronephrosis of the left kidney. DISTAL LEFT URETER: There is non-visualization of the distal left ureter. There is no demonstrated left ureterovesical junction calculus. There is a visualized left ureteral jet. BLADDER: The distended urinary bladder has a volume of 224 ml. The empty urinary bladder has a volume of ml. There is a normal wall thickness of the distended urinary bladder. 1.5 cm echogenic area in the left side of the base the bladder worrisome for a mass. Cystoscopy would be useful. There are no demonstrated bladder calculi. US/Kidney and Bladder IMPRESSION: Mild left hydronephrosis. 10 mm nonobstructing stone lower pole left kidney. Questionable bladder mass and correlation with cystoscopy may be useful. Electronically Signed: Orlando Mireles MD at 12:08 EDT ,
[2024-07-27 10:00] LABS: Bacteria 1+ /hpf (None Seen); Squamous Epithelial Cells - UA 0-5 SEEN /hpf (5-10); White Blood Cells 10-25 SEEN /hpf (0-5)
[2024-07-27] MEDS: Morphine 4 MG/ML Syringe IV (10:00)
[2024-07-27] MEDS: Metoclopramide 10 MG/2 ML Vial 5 MG IV (10:00)
[2024-07-27 10:01] LABS: ALB/GLOB Ratio 1.1 RATIO (0.9-2.4); AST(SGOT) 19 U/L (15-37); Alanine Aminotransfer ALT/SGPT 26 U/L (13-56); Albumin, Serum 3.8 g/dL (3.2-5.0); Alkaline Phosphatase 74 U/L (45-117); Anion Gap 8 (5-15); BUN 20 mg/dL (7-18); BUN/Creat Ratio 35.7 RATIO (10-20); Calcium,Total 9.2 mg/dL (8.5-10.1); Chloride 106 mmol/L (98-107); Creatinine, Serum 0.56 mg/dL (0.55-1.02); EST Glomerular Filtration Rate 134 mL/min (>60); Est Glom Filt Rate - Afr Amer 162 mL/min (>60); Globulin 3.5 g/dL (2.2-4.2); Glucose 93 mg/dL (74-106); Potassium 4.1 mmol/L (3.5-5.1); Protein, Total 7.3 g/dL (6.4-8.2); Sodium Level 139 mmol/L (136-145)
[2024-07-27] MEDS: 0.9% Normal Saline (1000mL) 1,000 ML 999 ML IV ×2 (10:02→10:28)
--- NOTE | 2024-07-27 10:09 | EDS_ITS ---
HPI History of Present Illness Chief Complaint: Flank Pain Narrative Narrative: Patient is a 29-year-old female past medical history of kidney stone, anemia, PCOS who presented to the emergency department chief complaint of left back pain. Patient states that she has been dealing with a 9 mm kidney stone and states that recently she had been hospitalized had a stent placed and her surgery has been canceled 2 times. States that she is post have surgery on coming up to have her stone broken up. States that for the past few days she has noted that she has had worsening back pain fevers chills not feeling well. She states that she followed up with her urologist in outpatient setting late last week and complained of similar symptoms and they advised her that everything was normal. She states that she recently finished ciprofloxacin and took the medication as prescribed. Denies any sick contacts. [facility] Medical History Vitamin deficiency Vision problem Kidney stone Head ache Gastrointestinal problem Gallstone Emotional problems Chronic bronchitis Breast lump Bone fracture Anemia Bladder infection Endometriosis Kidney infection PCOS (polycystic ovarian syndrome) Home Medications ?Medication ?Instructions ?Recorded ?Last Taken ?Type phenazopyridine 200 mg tablet 200 mg PO TID PRN PRN Bladder 07/01/24 Unknown Rx (Pyridium) Spasms 7 days #30 tabs ciprofloxacin HCl 500 mg tablet 500 mg PO BID #16 TABLETS 07/13/24 Unknown Rx oxycodone-acetaminophen 5 mg-325 1 tab PO Q8H PRN pain 3 days #9 07/13/24 Unknown Rx mg tablet (Percocet) tabs ciprofloxacin HCl 500 mg tablet 500 mg PO BID 7 days #14 tabs 07/27/24 Unknown Rx metoclopramide HCl 5 mg tablet 5 mg PO Q6H PRN nausea and 07/27/24 Unknown Rx (Reglan) vomiting 3 days #12 tabs oxycodone-acetaminophen 5 mg-325 1 tab PO Q6H PRN pain 3 days #12 07/27/24 Unknown Rx mg tablet (Percocet) tabs Allergy/AdvReac Type Severity Reaction Status Date / Time vancomycin Allergy Intermediate Itching Verified 07/27/24 09:18 sulfamethoxazole (From Allergy Rash Verified 07/27/24 09:18 Bactrim) trimethoprim (From Bactrim) Allergy Rash Verified 07/27/24 09:18 latex AdvReac Mild rash Verified 07/27/24 09:18 Family History Sister Anxiety Asthma Diabetes Mother Scoliosis Asthma Arthritis Cancer uterus (precancerous) Mental health disorder anxiety/depression/ drug addiction Sister Mental health disorder depression, Bipolar Anxiety Schizophrenia Daughter Thyroid disorder at - resolved Surgical History History of surgical procedure H/O eye surgery History of salpingectomy History of 2 sections Hx of appendectomy Social History household members: significant other and children housing: house current occupational status: employed 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 Smoking Status: Never smoker Electronic Cigarette Use: not used alcohol intake: never substance use type: does not use what type of physical activity do you participate in: walking seatbelt use: always do you feel safe at home: Yes ROS ROS ED ROS Narrative Constitutional: Complains of chills denies headaches, lightness, dizziness Eyes: Denies change in vision double vision blurry vision Cardiovascular: Denies chest pain Respiratory: Denies shortness of breath Abdomen: Complains of nausea and vomiting secondary to the pain denies any abdominal pain diarrhea : Complains of left flank pain as noted above, complains of increased frequency of urinating and painful urination denies any blood in her urine Neurological: Denies numbness, weakness, tingling Musculoskeletal: Complains of left back pain as noted above Skin: Denies rashes or lesions EXAM Physical Exam Narrative Exam Narrative: General: Patient was lying in bed rest comfortably did not appear to be in acute distress Head: Atraumatic, cephalic Eyes: PERRL bilateral, EOMI bilateral, no conjunctival injection noted Neck: Soft, supple, trach midline Cardiovascular: Regular rate and rhythm no murmurs gallops rubs noted Respiratory: Clear to auscultation bilaterally Abdomen: Soft, nondistended, nontender to palpation, bowel sounds present x 4 Musculoskeletal: Patient has left-sided CVA tenderness noted on exam no midline tenderness palpation of the thoracolumbar spine Extremities: +5/5 strength noted in the bilateral upper and lower extremities, no pedal edema on exam Neurological: Patient following commands knew that she was at [facility] year is 2023 Skin: Warm, dry, intact Const Vital Signs: 07/27/24 09:18 07/27/24 10:21 07/27/24 11:29 Temperature 97.8 F 97.2 F L Temperature Source Oral Oral Pulse Rate 68 84 66 Respiratory Rate 16 16 Blood Pressure 114/82 H 138/63 H 119/70 Blood Pressure Mean 92 88 86 Pulse Ox 98 98 99 Oxygen Delivery Method Room Air Room Air Room Air 07/27/24 11:43 07/27/24 12:59 Temperature 98.4 F 98.1 F Temperature Source Oral Oral Pulse Rate 78 79 Respiratory Rate 17 18 Blood Pressure 106/54 L 109/79 Blood Pressure Mean 71 89 Pulse Ox 98 97 Oxygen Delivery Method Room Air Room Air MDM MDM MDM Narrative Medical decision making narrative: Patient is a 29-year-old female who presented to the emergency department chief complaint of left flank pain in the setting of kidney stone. Patient will have a workup performed on the differential diagnose includes Melamin to UTI, pyelonephritis, urolithiasis. Once workup is obtained reviewed she will be reevaluated. Patient states that Zofran does not work for her. Should begin IV fluids, morphine and Reglan. Patient CBC reviewed and showed no evidence of leukocytosis white blood count normal at 6.7, hemoglobin stable at 14.2, platelet count normal at 276. Patient sodium normal 139, potassium normal at 4.1, creatinine normal at 0.56. Patient's AST and ALT were 19 and 26 respectively. Patient's urinalysis showed 250 blood negative nitrites to 500 leukocyte esterase, 10-25 white blood cells seen with 1+ bacteria. Patient's test was negative. Patient's ultrasound of her kidneys were reviewed and showed a 10 mm nonobstructing stone in the left lower pole of her kidney. Question bladder mass and correlation with cystoscopy may be useful. There was mild left hydronephrosis noted as well. Called and spoke with Dr. Cortez urology who states that there is nothing surgical to be done at this point in time and to place her back on ciprofloxacin and have her follow-up with her at her next scheduled appointment on for her lithotripsy. Patient will be given prescription for ciprofloxacin, Zofran and Percocet. Patient was requesting work note which she was provided. All question concerns answered she is discharged home in stable condition. She was advised to return with worsening symptoms or other concerns. Lab Data Labs: Laboratory Results - last 24 hr 07/27/24 09:40 WBC 6.7 RBC 4.78 Hgb 14.2 Hct 44.4 MCV 92.9 MCH 29.7 MCHC 32.0 RDW Std Deviation 44.0 H RDW Coeff of Darrell 12.9 Plt Count 276 MPV 9.4 Immature Gran % (Auto) 0.300 Neut % (Auto) 61.4 Lymph % (Auto) 27.9 [place] % (Auto) 6.5 Eos % (Auto) 2.7 Baso % (Auto) 1.2 H Absolute Neuts (auto) 4.1 Absolute Lymphs (auto) 1.88 Nucleated RBC % 0 Sodium 139 Potassium 4.1 Chloride 106 Carbon Dioxide 25.0 Anion Gap 8 BUN 20 H Creatinine 0.56 Estim Creat Clear Calc 101.10 Est GFR (MDRD) Af Amer 162 Est GFR (MDRD) Non-Af 134 BUN/Creatinine Ratio 35.7 H Glucose 93 Calcium 9.2 Total Bilirubin 0.80 AST 19 ALT 26 Alkaline Phosphatase 74 Total Protein 7.3 Albumin 3.8 Globulin 3.5 Albumin/Globulin Ratio 1.1 Urine Color Yellow Urine Clarity Cloudy Urine pH 6.0 Ur Specific [place] 1.015 Urine Protein 30 H Urine Glucose (UA) Normal Urine Ketones Negative Urine Occult Blood 250 H Urine Nitrite Negative Urine Bilirubin Negative Urine Urobilinogen Normal Ur Leukocyte Esterase 500 H Urine RBC > 100 SEEN Urine WBC 10-25 SEEN Ur Squamous Epith Cells 0-5 SEEN Urine Bacteria 1+ Urine Mucus 0 SEEN Urine Test Negative Radiography Diagnostic Testing: Clinical Impression(s) from Imaging Studies Renal Ultrasound 07/27/24 09:58 IMPRESSION: Mild left hydronephrosis. 10 mm nonobstructing stone lower pole left kidney. Questionable bladder mass and correlation with cystoscopy may be useful. Electronically Signed: Orlando Mireles MD at 12:08 EDT , Discharge Plan Triage Chief Complaint: Flank Pain ED Provider: Teofilo Adams Dx/Rx/DC Orders Clinical Impression: Urolithiasis Prescriptions: New ciprofloxacin HCl 500 mg tablet 500 mg PO BID 7 Days Qty: 14 0RF metoclopramide HCl [Reglan] 5 mg tablet 5 mg PO Q6H PRN (Reason: nausea and vomiting) 3 Days Qty: 12 0RF oxycodone-acetaminophen [Percocet] 5-325 mg tablet 1 tab PO Q6H PRN (Reason: pain) 3 Days Qty: 12 0RF No Action phenazopyridine [Pyridium] 200 mg tablet 200 mg PO TID PRN PRN (Reason: Bladder Spasms) 7 Days Qty: 30 0RF ciprofloxacin HCl 500 mg tablet 500 mg PO BID Qty: 16 0RF oxycodone-acetaminophen [Percocet] 5-325 mg tablet 1 tab PO Q8H PRN (Reason: pain) 3 Days Qty: 9 0RF Primary Care Provider: Lizeth Brandt Referrals: Lizeth Brandt MD [Primary Care Provider] - Kelsey Cortez MD [Med Staff - Active Staff] - Activity Restrictions/Additional Instructions: Follow-up with Dr. April pinzno on for your appointment. Use ibuprofen Tylenol [id number] for mild to moderate pain and use the Percocet for severe pain. He is Reglan for as needed nausea and as prescribed. Return for worsening symptoms or other concerns. Take antibiotic as prescribed. Print Language: Upper Sorbian Disposition Disposition: Home, Self Care
[2024-07-27 10:21] VITALS: BP 138/63; PULSE 84; RESP 16; TEMP 36.2; O2SAT 98
[2024-07-27 11:29] VITALS: BP 119/70; PULSE 66; O2SAT 99
[2024-07-27 11:43] VITALS: BP 106/54; PULSE 78; RESP 17; TEMP 36.9; O2SAT 98
[2024-07-27 12:59] VITALS: BP 109/79; PULSE 79; RESP 18; TEMP 36.7; O2SAT 97
[2024-07-27 13:53] VITALS: BP 106/87; PULSE 77; RESP 18; TEMP 36.6; O2SAT 99
== END 2024-07-27 14:02 | disposition home or self-care (01) ==
PROVIDERS: Emergency Provider Emergency Medicine; PCP Internal Medicine; Visit Provider Emergency Medicine
DX: N13.2 Hydronephrosis with renal and ureteral calculous obstruction (principal); R93.89 Abnormal findings on diagnostic imaging of other specified body structures; D64.9 Anemia, unspecified; E28.2 Polycystic ovarian syndrome; Z88.1 Allergy status to other antibiotic agents; Z88.2 Allergy status to sulfonamides; Z87.442 Personal history of urinary calculi
CPT/HCPCS: 76770; 80053; 81001; 81025; 85025; 87086; 96361; 96374; 96375; 99282; J7030; A4216

== ENCOUNTER 2024-07-30 09:05 | Day surgery (SDC) | payer MEDICAID, SELFPAY ==
[2024-07-30] VITALS (12 sets, daily range): BP systolic 101–146; BP diastolic 75–86; PULSE 72–140; RESP 16–22; TEMP 36.3–36.6; O2SAT 97–100; BMI 18.1
[2024-07-30] MEDS: Lactated Ringers 1,000 ML 15 ML IV ×2 (09:45→11:48)
--- NOTE | 2024-07-30 09:58 | PRE.ANES_ITS ---
ASA Classification* ASA Classification ASA Classification: 2 Assessment & Plan Anesthesia* Anesthesia Assessment Anesthesia Assessment: Discussed sedation and/or anesthesia options, risks, benefits, and alternatives with patient/parents/legal guardian/POA. Questions invited. The patient/parents/legal guardian/POA seems to understand and agrees to proceed with anesthesia plan. Reviewed the physical assessment, medical history, allergy history and patient home medications list prior to surgery/procedure/anesthetic and documented any changes. Performed airway and anesthesia risk assessments. Anesthesia Type Anesthesia Type: General Anesthesia Focused Assessment* Temperature: 97.9 F Pulse Rate: 72 Blood Pressure: 101/75 Respiratory Rate: 16 Pulse Ox: 100 Airway Assessment Mouth opens: >3 cm Mallampati Score: II Focused Labs Anesthesia Preop lab: CBC WBC 6.7 K/mm3 (4.4-11.0) 07/27/24 09:40 RBC 4.78 M/mm3 (4.2-5.4) 07/27/24 09:40 Hgb 14.2 g/dL (12.0-15.0) 07/27/24 09:40 Hct 44.4 % (37-47) 07/27/24 09:40 Plt Count 276 K/mm3 (150-450) 07/27/24 09:40 CHEMISTRY Potassium 4.1 mmol/L (3.5-5.1) 07/27/24 09:40 Sodium 139 mmol/L (136-145) 07/27/24 09:40 BUN 20 mg/dL (7-18) H 07/27/24 09:40 Creatinine 0.56 mg/dL (0.55-1.02) 07/27/24 09:40 Glucose 93 mg/dL (74-106) 07/27/24 09:40 COAG Urine Test Negative Negative 07/27/24 09:40 Tst Clinic Negative 01/17/24 11:18 Pre-Assessment Diagnosis/Proposed Procedure Planned Operative Procedure(s): ESWL Anesthesia History 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 When Was Last Pacemaker Check QUESTION #4 FULL TEXT: You/Your Family Experience fever (hyperthermia) with Anesthesia Last Oral Intake Last Oral intake: Last Oral Intake NPO since 22:30 07/30/24 09:46 Meds taken in AM with sips of No 07/30/24 09:46 water? Meds patient instructed to take am of surgery PONV PONV - granulizing machine operator: PONV - granulizing machine operator Female Yes 07/28/24 10:23 HX of Motion Sickness No 07/28/24 10:23 HX of N/V After Surgery No 07/28/24 10:23 Non-Smoker No 07/28/24 10:23 Duration of Surgery greater Yes 07/28/24 10:23 than 60 minutes Number of Risk Factors 2 07/28/24 10:23 PONV Score Moderate Risk 07/28/24 10:23 Height & Weight Height & Weight: Anesthesia: Height & Weight Height 5 ft 07/30/24 09:46 Weight: 42 kg 07/30/24 09:46 Body Mass Index (BMI) 18.1 07/30/24 09:46 Respiratory Assessment Respiratory Assessment - granulizing machine operator: Respiratory Tract Infection Hx - granulizing machine operator Hx Respiratory Tract Infection No 07/28/24 10:23 STOP Sleep Apnea STOP Sleep Apnea - granulizing machine operator: STOP Sleep Apnea - granulizing machine operator Hx Hypertension No 07/28/24 10:23 Hx Sleep Apnea No 07/28/24 10:23 CPAP BIPAP Do you snore loudly (louder No 07/28/24 10:23 than talking or can be heard Do you often feel tired/ No 07/28/24 10:23 fatigued/ sleepy during daytime? Has anyone observed you stop No 07/28/24 10:23 breathing during sleep? STOP Results Negative 07/28/24 10:23 QUESTION #5 FULL TEXT : Do you snore loudly (louder than talking or can be heard through closed doors)? 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 Specify any problems Hx of Preganancy in last 3 No 07/28/24 10:23 Months Nurse Filling Out Transfusion [id number] 07/28/24 10:23 & Questions: Date: 07/28/24 07/28/24 10:23 Time: 10:27 07/28/24 10:23 Patient unable to answer at this time (ie. confused, unrespo /Reproduction History /Reproductive History - granulizing machine operator: /Reproductive Hx- granulizing machine operator Hx Now Gestational Age (in weeks): EDC: Hx Hx Para Hx Section SAB No 07/27/24 09:18 Active Medications Active Medications: Current Medications Generic Name Dose Route Start Last Admin Trade Name Freq PRN Reason Stop Dose Admin Cefazolin Sodium 2 gm/ Sodium 110 mls @ 150 mls/hr 07/30/24 09:40 Chloride IV 07/30/24 10:23 PREOP ONE Lactated Ringer's 1,000 mls @ 15 mls/hr 07/30/24 09:45 07/30/24 09:45 IV 15 mls/hr .Q48H DAVID Administration PFSH Medical History Depression Anxiety Marijuana use Vitamin deficiency Vision problem Kidney stone Head ache Gastrointestinal problem Gallstone Emotional problems Chronic bronchitis Breast lump Bone fracture Anemia Bladder infection Endometriosis Kidney infection PCOS (polycystic ovarian syndrome) Home Medications ?Medication ?Instructions ?Recorded ?Last Taken ?Type phenazopyridine 200 mg tablet 200 mg PO TID PRN PRN Bladder 07/01/24 Unknown Rx (Pyridium) Spasms 7 days #30 tabs ciprofloxacin HCl 500 mg tablet 500 mg PO BID #16 TABLETS 07/13/24 07/29/24 Rx metoclopramide HCl 5 mg tablet 5 mg PO Q6H PRN nausea and 07/27/24 07/29/24 Rx (Reglan) vomiting 3 days #12 tabs oxycodone-acetaminophen 5 mg-325 1 tab PO Q6H PRN pain 3 days #12 07/27/24 07/29/24 Rx mg tablet (Percocet) tabs cholecalciferol (vitamin D3) 125 125 mcg PO DAILY 07/28/24 07/29/24 History mcg (5,000 unit) capsule [id number] 18 mg-FA 400 1 tab PO DAILY 07/28/24 07/29/24 History mcg-calcium 500 mg-vit K 50 mcg tablet (Women's Multivitamin) Allergy/AdvReac Type Severity Reaction Status Date / Time vancomycin Allergy Intermediate Itching Verified 07/30/24 09:43 sulfamethoxazole (From Allergy Rash Verified 07/30/24 09:43 Bactrim) trimethoprim (From Bactrim) Allergy Rash Verified 07/30/24 09:43 latex AdvReac Mild rash Verified 07/30/24 09:43 Family History Sister Anxiety Asthma Diabetes Mother Scoliosis Asthma Arthritis Cancer uterus (precancerous) Mental health disorder anxiety/depression/ drug addiction Sister Mental health disorder depression, Bipolar Anxiety Schizophrenia Daughter Thyroid disorder at - resolved Surgical History History of surgical procedure H/O eye surgery History of salpingectomy History of 2 sections Hx of appendectomy Social History household members: significant other and children housing: house current occupational status: employed 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
--- NOTE | 2024-07-30 10:02 | DCINST_ITS ---
Discharge Instructions Diet Discharge Diet: No restrictions Activity Discharge Activity: Return to Normal Activity Dressing / Incision Call your doctor if you observe: Fever of 101 or Higher, Inability to urinate and Inability to have a bowel movement Follow Up Care Please Follow Up With: Kelsey Cortez MD When: 2-3 weeks with [facility]. The office will call to make arrangements. Test Results: Test results from this visit will be discussed in further detail at your follow- up appointment, if applicable. Discharge Plan Admission Attending Provider: Kelsey Cortez Primary Care Provider: Lizeth Brandt Instructions Print Language: Polish Discharge Orders/Prescriptions Prescriptions: New oxycodone-acetaminophen [Percocet] 5-325 mg tablet 1 tab PO Q8H PRN (Reason: pain) 3 Days Qty: 10 0RF Continued phenazopyridine [Pyridium] 200 mg tablet 200 mg PO TID PRN PRN (Reason: Bladder Spasms) 7 Days Qty: 30 0RF ciprofloxacin HCl 500 mg tablet 500 mg PO BID Qty: 16 0RF cholecalciferol (vitamin D3) 125 mcg (5,000 unit) capsule 125 mcg PO DAILY Women's Multivitamin 18 mg-400 mcg- 500 mg-50 mcg tablet 1 tab PO DAILY metoclopramide HCl [Reglan] 5 mg tablet 5 mg PO Q6H PRN (Reason: nausea and vomiting) 3 Days Qty: 12 0RF oxycodone-acetaminophen [Percocet] 5-325 mg tablet 1 tab PO Q6H PRN (Reason: pain) 3 Days Qty: 12 0RF Referrals / Follow Up: Lizeth Brandt MD [Primary Care Provider] - Disposition Disposition (needs filled in before D/C Order can be placed): Home, Self Care
--- NOTE | 2024-07-30 10:04 | PCM.OPRPT ---
Report of Operation Date of Procedure: 07/30/24 Pre-Operative Diagnosis: Left renal stone Post-Operative Diagnosis: Same Surgery/Procedure Performed:: Left renal extracorporal shockwave lithotripsy Surgeon: Kelsey Cortez Type of Anesthesia: General Specimen's removed: None Description of Procedure: The patient is a 29-year-old female with a large left renal stone who now presents for shockwave lithotripsy. Informed consent was obtained. The patient was taken to the operating room and placed on the lithotripsy table. Anesthesia monitored the head, neck, airway, IV access and vital signs throughout the case. Once anesthesia was appropriately administered, she was aligned with the lithotripter and the stone was easily visualized. 3000 shocks were applied to the stone with good fragmentation at the conclusion of the case. She was then awakened and taken to the recovery room in good condition. There were no complications during the procedure. Grafts/Implants Used: None Complications None Admit VTE Documentation VTE Present on Admission: Yes VTE Mechan Device Prophylaxis: SCD's VTE Pharm Prophylaxis ordered?: No Reason prophylaxis not ordered:: Treatment Not Indicated
[2024-07-30] MEDS: Cefazolin 2 GM in 0.9% Normal Saline (100mL Bag) 100 ML IV (10:09)
--- NOTE | 2024-07-30 11:13 | PCM.POST.ANE ---
Anesthesia: Postop Eval I Current Vital Signs Temperature: 97.4 F Pulse Rate: 137 Blood Pressure: 111/83 Respiratory Rate: 22 Pulse Ox: 100 Assessment Airway patent: Yes Spontaneous unlabored respirations: Yes Mental status: Awake and Calm nausea: No Vomiting: No Anesthesia Complication: No Fluid Hydration Crystalloid volume administer (ml): 700 Total IV fluid infused: 700 Progress Note Post-operative progress note: SHIVERING; WARM BLANKETS APPLIED Anesthesia document: Postop Eval 1 completed: Yes
--- NOTE | 2024-07-30 12:09 | POSTOPAN2_ITS ---
Anesthesia Postop Eval I Sum Postop Eval Completion status Anesthesia document: Postop Eval 1 completed: Yes Anesthesia Postop Eval I Summary Anesthesia Postop Eval I Summary: Anesthesia Postop Eval I: Assessment Summary Airway patent Yes 07/30/24 11:14 CUT OFF SAW [email or web address] Spontaneous unlabored Yes 07/30/24 11:14 CUT OFF SAW [email or web address] respirations Mental status Awake,Calm 07/30/24 11:14 CUT OFF SAW [email or web address] nausea No 07/30/24 11:14 CUT OFF SAW [email or web address] Vomiting No 07/30/24 11:14 CUT OFF SAW [email or web address] Anesthesia Postop Eval I: Fluid Summary Crystalloid volume administer 700 07/30/24 11:14 CUT OFF SAW [email or web address].SCHR (ml) Colloids volume administered ( ml) Blood Product volume administered (ml) Total IV fluid infused 700 07/30/24 11:14 CUT OFF SAW [email or web address] Anesthesia Postop Eval I: Summary Notes Anesthesia Complication No 07/30/24 11:14 CUT OFF SAW [email or web address].SCHR Anesthesia Complication Comment: Post-operative progress note SHIVERING; WARM 07/30/24 11:14 CUT OFF [facility] [email or web address] BLANKETS APPLIED Anesthesia: Postop Eval II Evaluation Mental status: Awake Pain Level: 0 nausea: No Vomiting: No
--- NOTE | 2024-07-30 12:09 | PCM.POSTANE2 ---
Anesthesia Postop Eval I Sum Postop Eval Completion status Anesthesia document: Postop Eval 1 completed: Yes Anesthesia Postop Eval I Summary Anesthesia Postop Eval I Summary: Anesthesia Postop Eval I: Assessment Summary Airway patent Yes 07/30/24 11:14 DIRECTOR [email or web address] Spontaneous unlabored Yes 07/30/24 11:14 DIRECTOR [email or web address] respirations Mental status Awake,Calm 07/30/24 11:14 DIRECTOR [email or web address] nausea No 07/30/24 11:14 DIRECTOR [email or web address] Vomiting No 07/30/24 11:14 DIRECTOR [email or web address] Anesthesia Postop Eval I: Fluid Summary Crystalloid volume administer 700 07/30/24 11:14 DIRECTOR [email or web address] (ml) Colloids volume administered ( ml) Blood Product volume administered (ml) Total IV fluid infused 700 07/30/24 11:14 DIRECTOR [email or web address] Anesthesia Postop Eval I: Summary Notes Anesthesia Complication No 07/30/24 11:14 DIRECTOR [email or web address] Anesthesia Complication Comment: Post-operative progress note SHIVERING; WARM 07/30/24 11:14 DIRECTOR VALIDATION.[facility] BLANKETS APPLIED Anesthesia: Postop Eval II Evaluation Mental status: Awake Pain Level: 0 nausea: No Vomiting: No
== END 2024-07-30 13:30 | disposition home or self-care (01) ==
LOC: SDC 09:06 → AC 09:06
PROVIDERS: PCP Internal Medicine; Referring Provider Urology; Visit Provider Urology
PROC: (CPT 50590; principal; 2024-07-30 10:35)
DX: N20.0 Calculus of kidney (principal); N39.0 Urinary tract infection, site not specified; N39.46 Mixed incontinence; E28.2 Polycystic ovarian syndrome; J45.909 Unspecified asthma, uncomplicated; Z87.440 Personal history of urinary (tract) infections
CPT/HCPCS: 50590; 00873; J7120; J2405

== ENCOUNTER → 2024-08-19 | Outpatient (CLI) | payer MEDICAID, SELFPAY ==
--- NOTE | 2024-08-19 10:39 | RAD_ITS ---
INDICATION: KUB- STONES EXAMINATION/TECHNIQUE: X-RAY - XR Abdomen 1 View COMPARISON: Prior study dated: 04/14/2024 FINDINGS: BOWEL GAS PATTERN: Non-obstructive. No bowel or stomach distention. FREE AIR: Not assessed on a single supine view. ORGANOMEGALY: Not seen. CALCIFICATIONS: Faintly visualized calcification on the left side of the abdomen about the level of L3-L4 could be overlying the lower pole of the left kidney. LOWER CHEST: No acute pathology. BONES AND SOFT TISSUES: Left-sided double-J stent catheter with the proximal tip in the left upper quadrant in the region of the left kidney and the distal tip in the pelvic region. RAD/Abdomen Single View IMPRESSION: 1. Small faint calcification on the left side of the abdomen. 2. Double-J stent catheter is seen. Electronically Signed: Kamran Taylor MD at 15:59 EDT ,
== END | disposition home or self-care (01) ==
PROVIDERS: PCP Internal Medicine; Referring Provider Urology; Visit Provider Urology
DX: N20.0 Calculus of kidney (principal); N39.0 Urinary tract infection, site not specified
CPT/HCPCS: 74018; 87086

== ENCOUNTER 2024-10-05 11:00 | Emergency (ER) | payer MEDICAID, SELFPAY ==
[2024-10-05 11:02] VITALS: BP 132/60; PULSE 64; RESP 18; TEMP 36.1; O2SAT 96; BMI 18.9
--- NOTE | 2024-10-05 11:18 | US_ITS ---
STUDY: ULTRASOUND OF THE FEMALE PELVIS - COMPLETE REASON FOR EXAM: Female, 29 years old. Vaginal bleed -- hx bilateral salpingectomy LMP: October 04, 2024. TECHNIQUE: Transvaginal TECHNICAL QUALITY: Adequate. COMPARISON: Comparison is made with prior study dated September 11, 2023. FINDINGS: The uterus is anteverted and is in a midline position. The uterus measures 8.9 cm x 5 cm x 4.1 cm. Normal uterine cervix. The endometrium measures 3.7 mm in thickness, and is hyperechoic. There is no demonstrated endometrial mass. There is no demonstrated myometrial mass. I.U.D. - The patient does not have an I.U.D. The right ovary is visualized. The right ovary measures 2.5 cm x 2.4 cm x 1.7 cm. There is no right ovarian cyst or ovarian mass. There is no visualized right adnexal mass or complex lesion. There is normal arterial and normal venous vascularity. The left ovary is visualized. The left ovary measures 2.6 cm x 1.3 cm x 1.9 cm. There is no left ovarian cyst or ovarian mass. There is no visualized left adnexal mass or complex lesion. There is normal arterial and normal venous vascularity. There is no fluid in the cul-de-sac. US/Transvaginal Non- IMPRESSION: Normal female pelvis. Electronically Signed: Domingo Carrillo MD at 12:16 EST ,
--- NOTE | 2024-10-05 11:31 | EDS_ITS ---
HPI HPI - Female History of Present Illness Chief Complaint: Vag Bleeding Informant: patient Narrative Narrative: Sent in here by her gynecology team calling Clementina Mccormick for evaluation. Started her menstrual period yesterday unclear number of pads. Today went through 1 soaked heavy pad blood down her leg. She states currently has tissues. She is not on any blood thinners. She has pelvic cramping from her menstrual period. 2 years ago bilateral salpingectomy electively performed. She had heavy bleeding similar at that time. Her last menstrual period was a month ago. She states sometimes has missed periods. However it has been monthly for the past few months. She called her gynecology office was referred to the ED. Prior similar symptoms: Yes PFSH PFSH Medical History Depression Anxiety Marijuana use Vitamin deficiency Vision problem Kidney stone Head ache Gastrointestinal problem Gallstone Emotional problems Chronic bronchitis Breast lump Bone fracture Anemia Bladder infection Endometriosis Kidney infection PCOS (polycystic ovarian syndrome) Home Medications ?Medication ?Instructions ?Recorded ?Last Taken ?Type phenazopyridine 200 mg tablet 200 mg PO TID PRN PRN Bladder 07/01/24 Unknown Rx (Pyridium) Spasms 7 days #30 tabs ciprofloxacin HCl 500 mg tablet 500 mg PO BID #16 TABLETS 07/13/24 07/29/24 Rx metoclopramide HCl 5 mg tablet 5 mg PO Q6H PRN nausea and 07/27/24 07/29/24 Rx (Reglan) vomiting 3 days #12 tabs oxycodone-acetaminophen 5 mg-325 1 tab PO Q6H PRN pain 3 days #12 07/27/24 07/29/24 Rx mg tablet (Percocet) tabs cholecalciferol (vitamin D3) 125 125 mcg PO DAILY 07/28/24 07/29/24 History mcg (5,000 unit) capsule [id number] 18 mg-FA 400 1 tab PO DAILY 07/28/24 07/29/24 History mcg-calcium 500 mg-vit K 50 mcg tablet (Women's Multivitamin) oxycodone-acetaminophen 5 mg-325 1 tab PO Q8H PRN pain 3 days #10 07/30/24 Unknown Rx mg tablet (Percocet) tabs Allergy/AdvReac Type Severity Reaction Status Date / Time vancomycin Allergy Intermediate Itching Verified 10/05/24 11:07 sulfamethoxazole (From Allergy Rash Verified 10/05/24 11:07 Bactrim) trimethoprim (From Bactrim) Allergy Rash Verified 10/05/24 11:07 latex AdvReac Mild rash Verified 10/05/24 11:07 Family History Sister Anxiety Asthma Diabetes Mother Scoliosis Asthma Arthritis Cancer uterus (precancerous) Mental health disorder anxiety/depression/ drug addiction Sister Mental health disorder depression, Bipolar Anxiety Schizophrenia Daughter Thyroid disorder at - resolved Surgical History History of surgical procedure H/O eye surgery History of salpingectomy History of 2 sections Hx of appendectomy Social History household members: significant other and children housing: house current occupational status: employed 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 Smoking Status: Never smoker Electronic Cigarette Use: not used alcohol intake: never substance use type: does not use what type of physical activity do you participate in: walking seatbelt use: always do you feel safe at home: Yes ROS ROS ED Constitutional Constitutional ED: Denies chills, fever(s) or sweats Eyes Eyes: Denies change in vision ENT ENT ED: Denies dysphagia or sore throat Cardiovascular Cardiovascular: Denies chest pain, leg edema, palpitations or racing heartbeat Respiratory/Chest Respiratory/Chest: Denies cough, dyspnea or dyspnea on exertion Gastrointestinal Gastrointestinal: Denies abdominal pain, diarrhea, nausea or vomiting Genitourinary Genitourinary ED: Reports other Details: Pelvic cramping with vaginal bleeding ; Denies dysuria, hematuria or urinary frequency Musculoskeletal Musculoskeletal: Denies back pain, extremity pain or neck pain Integumentary Denies rash or wounds Neurologic Neurologic: Denies headache(s), paresthesias or weakness EXAM Physical Exam Const Vital Signs: 10/05/24 11:02 Temperature 96.9 F L Temperature Source Temporal Pulse Rate 64 Respiratory Rate 18 Blood Pressure 132/60 H Blood Pressure Mean 84 Pulse Ox 96 Oxygen Delivery Method Room Air Positive well nourished and well developed General Appearance ED: well developed and NAD HEENT Reports moist mucous membranes normocephalic and atraumatic Eyes EOMs intact bilaterally and conjunctivae normal General Eye ED: Yes normal appearance of both eyes Neck no lymphadenopathy and supple General: Negative for tenderness Chest Wall Chest: Negative for tenderness Resp normal respiratory effort and normal air movement Effort and Inspection: symmetric chest movement; Negative for respiratory distress Cardio regular rate, regular rhythm and no murmurs Peripheral Pulses: pulses 2+ throughout GI normal to inspection, nondistended, normoactive bowel sounds and non-tender Palpation: Negative for guarding or rebound tenderness present Narrative: Nursing sharepoint 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 Normal cervix, swabs sent and pending. Back/Spine no CVA tenderness and no thoracic nor lumbar tenderness Extremity normal to inspection General Extremety ED: Negative for edema or tenderness General Extremity: Negative for edema Neuro oriented x3 and no sensory deficits noted Sensorium / Orientation: awake and alert Skin no rashes or lesions noted and no wounds MDM MDM MDM Narrative Medical decision making narrative: Interventions / MDM: Differential diagnosis:Menorrhagia, abnormal bleeding. Diagnosis considered but do not suspect: N/A My EKG interpretation: N/A Imaging independently reviewed and interpreted by myself: Pelvic ultrasound: No acute process. External documents reviewed: N/A Test considered but not ordered:N/A ED course: Patient bleeding starting yesterday no significant reporting 1 pad today prior to arrival she is sent in by gynecology.CBC sent hCG sent pelvic ultrasound ordered. Pelvic exam no gross abnormalities of the cervix or structures. hCG negative. Angle 14.3. Ultrasound negative. I discussed with her gynecology team with Clementina Mccormick, discussed reassurance and outpatient follow-up in the office. Re-evaluation: stable Disposition discussed with patient/family/significant other: Patient Case discussed with consulting clinician: Gynecology This note was generated with [employer] dictation software. It may contain incorrect words, spelling, and punctuation that were not noted in checking the note before signing. Radiography Diagnostic Testing: Clinical Impression(s) from Imaging Studies Transvaginal US 10/05/24 11:18 IMPRESSION: Normal female pelvis. Electronically Signed: Domingo Carrillo MD at 12:16 EST , Discharge Plan Triage Chief Complaint: Vag Bleeding ED Provider: Le,Shakeel Dx/Rx/DC Orders Clinical Impression: Vaginal bleeding, Pelvic cramping Instructions: Understanding Uterine Bleeding, ED MENSTRUAL CRAMPING Prescriptions: No Action phenazopyridine [Pyridium] 200 mg tablet 200 mg PO TID PRN PRN (Reason: Bladder Spasms) 7 Days Qty: 30 0RF ciprofloxacin HCl 500 mg tablet 500 mg PO BID Qty: 16 0RF cholecalciferol (vitamin D3) 125 mcg (5,000 unit) capsule 125 mcg PO DAILY Women's Multivitamin 18 mg-400 mcg- 500 mg-50 mcg tablet 1 tab PO DAILY oxycodone-acetaminophen [Percocet] 5-325 mg tablet 1 tab PO Q8H PRN (Reason: pain) 3 Days Qty: 10 0RF metoclopramide HCl [Reglan] 5 mg tablet 5 mg PO Q6H PRN (Reason: nausea and vomiting) 3 Days Qty: 12 0RF oxycodone-acetaminophen [Percocet] 5-325 mg tablet 1 tab PO Q6H PRN (Reason: pain) 3 Days Qty: 12 0RF Primary Care Provider: Lizeth Brandt Referrals: Lizeth Brandt MD [Primary Care Provider] - Clementina Mccormick 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 Hemoglobin 14.3. Ultrasound normal endometrium 3.7 mm. Monitor bleeding. Discussed with Clementina Mccormick, follow-up with the office. Print Language: Honduran Disposition Disposition: Home, Self Care Discharge Date/Time: 10/05/24 12:41
[2024-10-05 11:45] LABS: Absolute Lymphocyte Count 1.88 X10^3/uL (0.83-4.51); Absolute Neutrophil Count 6.9 X10^3/uL (2.0-7.7); Basophil# 0.09 X10^3/uL; Basophil% 0.9 % (0-1); Eosinophil# 0.21 X10^3/uL; Eosinophils% 2.2 % (0-5); Hematocrit 43.5 % (37-47); Hemoglobin 14.3 g/dL (12.0-15.0); Lymphocyte # 1.88 X10^3/ul (0.83-4.51); Lymphocyte % 19.7 % (19-41); Mean Corp Hgb Conc 32.9 g/dL (32-36); Mean Corpuscular Volume 91.4 fL (81-99); Mean Platelet Vol. 10.1 fl (6.2-12.0); Monocyte# 0.44 X10^3/uL; Monocyte% 4.6 % (0-10); NRBC Flagged by Analyzer 0 % (0-5); Neutrophil # 6.89 X10^3/uL (2.7-7.7); Neutrophil % 72.3 % (47-70); Platelet Count 242 K/mm3 (150-450); RBC Distribution Width SD 43.7 fl (35.1-43.9); Red Blood Count 4.76 M/mm3 (4.2-5.4); White Blood Count 9.5 K/mm3 (4.4-11.0)
[2024-10-05 12:01] LABS: Internal QC Validated? YES +Cl - CLEAR BKGD; Pregnancy, Serum, hCG Quali. NEGATIVE Negative
[2024-10-05 12:36] VITALS: BP 128/78; PULSE 64; RESP 18; TEMP 36.1; O2SAT 96
== END 2024-10-05 12:41 | disposition home or self-care (01) ==
PROVIDERS: Emergency Provider Emergency Medicine; PCP Internal Medicine; Visit Provider Emergency Medicine
DX: N93.9 Abnormal uterine and vaginal bleeding, unspecified (principal); R10.2 Pelvic and perineal pain; E28.2 Polycystic ovarian syndrome; Z88.2 Allergy status to sulfonamides; Z88.1 Allergy status to other antibiotic agents; Z87.442 Personal history of urinary calculi
CPT/HCPCS: 76830; 84703; 85025; 87210; 87491; 87591; 99282; A4216

== ENCOUNTER 2024-10-14 09:14 | Emergency (ER) | payer MEDICAID, SELFPAY ==
[2024-10-14 09:14] VITALS: BP 126/91; PULSE 111; RESP 19; TEMP 36.7; O2SAT 97; BMI 20.5
[2024-10-14] MEDS: Acetaminophen 500 MG Tablet 1000 MG PO (09:31)
--- NOTE | 2024-10-14 09:32 | CT_ITS ---
STUDY: CT BRAIN WITHOUT CONTRAST REASON FOR EXAM: Female, 29 years old. Head injury. RADIATION DOSAGE (If Supplied By Facility): CTDIvol = ( 44.99 ) mGy, DLP = ( 745.49 ) mGycm TECHNIQUE: Transaxial CT imaging of the brain was performed without administration of intravenous contrast material. Individualized dose optimization techniques were used for this CT. COMPARISON: No relevant priors. FINDINGS: Normal soft tissue structures. Normal calvarium. Normal size ventricles and extra-axial spaces for the patient''s age. Normal white matter tracts of the cerebral hemispheres. Normal basal ganglia and thalami. Normal brainstem. Normal cerebellum. There is no intracranial hemorrhage. There are no findings of an acute ischemic infarction. Normal visualized paranasal sinuses. CT/Brain/Head without Contrast IMPRESSION: Normal unenhanced CT scan of the brain. Electronically Signed: Domingo Carrillo MD at 9:55 EST ,
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
[2024-10-14 10:12] VITALS: BP 110/71; PULSE 75; RESP 16; TEMP 36.6; O2SAT 97
== END 2024-10-14 10:13 | disposition home or self-care (01) ==
PROVIDERS: Emergency Provider Emergency Medicine; PCP Internal Medicine; Visit Provider Emergency Medicine
DX: R51.9 Headache, unspecified (principal); M54.6 Pain in thoracic spine; S20.312A Abrasion of left front wall of thorax, initial encounter; V48.5XXA Car driver injured in noncollision transport accident in traffic accident, initial encounter; Z88.2 Allergy status to sulfonamides; Z88.1 Allergy status to other antibiotic agents
CPT/HCPCS: 70450; 71046; 99284

== ENCOUNTER 2024-10-15 09:46 | Emergency (ER) | payer MEDICAID, SELFPAY ==
[2024-10-15 09:47] VITALS: BP 132/95; PULSE 89; RESP 14; TEMP 36.7; O2SAT 99
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
--- NOTE | 2024-10-15 11:40 | ED.RN ---
PT IS QUESTIONING WHY SHE ISN'T JUST GETTING NAUSEA MEDS AND GOING HOME. PT STATES SHE IS HAVING HER NORMAL ABD PAIN. PT STATES SHE DIDN'T THINK THE DR WS DOING ANYMORE TEST. DR LOW NOTIFIED AND IS GOING TO GO BACK INTO TALK TO PT. PT QUESTIONED WHY A XRAY IS BEING DONE AND EXPLAINED IT WAS NOT DONE YESTERDAY. PT STATES SHE HAD A XRAY YESTERDAY. EXPLAINED THE DIFFERENCE AND PT QUESTIONED IT AGAIN. PT IS AWARE IF SHE DOESN'T WANT THE TEST SHE CAN REUSE IT AND EXPLAINED WHAT THE XRAY IS FOR. OTHER TEST ARE ON HOLD TIL TALKS WITH PT.
[2024-10-15] MEDS: Metoclopramide 10 MG/2 ML Vial 5 MG IV (12:34)
[2024-10-15 12:49] LABS: Absolute Lymphocyte Count 2.15 X10^3/uL (0.83-4.51); Absolute Neutrophil Count 5.3 X10^3/uL (2.0-7.7); Basophil# 0.07 X10^3/uL; Basophil% 0.9 % (0-1); Eosinophil# 0.04 X10^3/uL; Eosinophils% 0.5 % (0-5); Hematocrit 46.2 % (37-47); Hemoglobin 15.4 g/dL (12.0-15.0); Lymphocyte # 2.15 X10^3/ul (0.83-4.51); Lymphocyte % 27.1 % (19-41); Mean Corp Hgb Conc 33.3 g/dL (32-36); Mean Corpuscular Hgb 30.2 pg (27.0-32.0); Mean Corpuscular Volume 90.6 fL (81-99); Mean Platelet Vol. 9.8 fl (6.2-12.0); NRBC Flagged by Analyzer 0 % (0-5); Neutrophil # 5.25 X10^3/uL (2.7-7.7); Neutrophil % 66.1 % (47-70); Platelet Count 236 K/mm3 (150-450); RBC Distribution Width CV 13.2 % (11.6-14.6); RBC Distribution Width SD 43.8 fl (35.1-43.9); White Blood Count 7.9 K/mm3 (4.4-11.0)
[2024-10-15 12:51] LABS: ALB/GLOB Ratio 1.5 RATIO (0.9-2.4); AST(SGOT) 21 U/L (15-37); Alanine Aminotransfer ALT/SGPT 26 U/L (13-56); Albumin, Serum 4.8 g/dL (3.2-5.0); Alkaline Phosphatase 72 U/L (45-117); Anion Gap 8 (5-15); BUN 14 mg/dL (7-18); BUN/Creat Ratio 24.6 RATIO (10-20); Chloride 108 mmol/L (98-107); Creatinine, Serum 0.57 mg/dL (0.55-1.02); EST Glomerular Filtration Rate 131 mL/min (>60); Est Glom Filt Rate - Afr Amer 159 mL/min (>60); Globulin 3.2 g/dL (2.2-4.2); Glucose 77 mg/dL (74-106); Potassium 3.8 mmol/L (3.5-5.1); Sodium Level 139 mmol/L (136-145)
[2024-10-15 13:49] VITALS: BP 108/76; PULSE 59; RESP 16; O2SAT 98
[2024-10-15 14:02] VITALS: BP 116/74; PULSE 72; RESP 15; TEMP 36.7; O2SAT 99
== END 2024-10-15 14:03 | disposition home or self-care (01) ==
PROVIDERS: Emergency Provider Emergency Medicine; PCP Internal Medicine; Visit Provider Emergency Medicine
DX: S06.0X0A Concussion without loss of consciousness, initial encounter (principal); S16.1XXA Strain of muscle, fascia and tendon at neck level, initial encounter; S39.012A Strain of muscle, fascia and tendon of lower back, initial encounter; V48.5XXA Car driver injured in noncollision transport accident in traffic accident, initial encounter; Z88.2 Allergy status to sulfonamides; Z88.1 Allergy status to other antibiotic agents
CPT/HCPCS: 72040; 74177; 80053; 85025; 96374; 99283; Q9967; A4216